=== PATIENT | male | born 1945 | race Caucasian/White ===

== ENCOUNTER 2017-01-31 20:26 | Inpatient (IN) | payer MEDICARE, BC ==
[2017-01-31] MEDS ORDERED: methylPREDNISolone 125 MG* 2 ML VIAL IV ONE (20:40)
[2017-01-31] MEDS ORDERED: Furosemide IV* 10 MG/ML VIAL (40 MG) IV ONE (20:40)
[2017-01-31] MEDS ORDERED: Albuterol/Ipratropium NEB.SOL* Albuterol 2.5 MG/Ipratropium 0.5 MG 3 ML INH ONE ×2 (20:40→21:32)
[2017-01-31] MEDS ORDERED: Albuterol/Ipratropium NEB.SOL* Albuterol 2.5 MG/Ipratropium 0.5 MG 3 ML ONE (20:41)
[2017-01-31 20:58] LABS: Hematocrit 30 % (42-52); Hemoglobin 9.7 g/dl (14.0-18.0); Mean Corpuscular HGB Conc 32 g/dl (31-36); Mean Corpuscular Hemoglobin 27 pg (27-31); Mean Corpuscular Volume 85 fL (80-94); Mean Platelet Volume 9 um3 (7.4-10.4); Red Blood Count 3.55 10^6/ul (4.0-5.4); Red Cell Distribution Width 16 % (10.5-15); White Blood Count 12.1 10^3/ul (3.5-10.8)
--- NOTE | 2017-01-31 20:59 | RAD ---
INDICATION: Shortness of breath. COMPARISON: There are no prior studies available for comparison. TECHNIQUE: A portable view of the chest was obtained. FINDINGS: The heart appears mildly enlarged. There are small infiltrates which project over both upper lobes and at both lung bases. No pleural effusion is seen. IMPRESSION: BILATERAL INFILTRATES.
[2017-01-31 21:01] LABS: Add Diff/Slide Review? Slide Review Added; Comments Flag Yes
[2017-01-31] MEDS ORDERED: cefTRIAXone(*) 1 GM in NS 0.9% 50 ML* 50 ML IVPB ONE (21:05)
[2017-01-31] MEDS ORDERED: Azithromycin IV(*) 500 MG in NS 0.9% 250 ML* 250 ML IVPB ONE (21:05)
[2017-01-31 21:13] LABS: Albumin 3.6 g/dL (3.2-5.2); Calcium 9.5 mg/dL (8.6-10.3); EGFR African American 59.3 (>60); EGFR Non-African American 46.1 (>60); Globulin 3.5 g/dL (2-4); Potassium 4.5 mmol/L (3.5-5.0); Total Bilirubin 0.3 mg/dL (0.2-1.0); Total Protein 7.1 g/dL (6.4-8.9)
[2017-01-31 21:16] LABS: Troponin I 0.02 ng/mL (<0.04)
--- NOTE | 2017-01-31 21:19 | ED ---
Lety Mirza Edward, scribed for Akil Solano MD on 01/31/17 at 2046 . Shortness of Breath - HPI Summary HPI Summary: LEVEL 5 CAVEAT DUE TO PATIENT BEING UNRESPONSIVE. INFORMATION PROVIDED BY EMS AND PATIENT'S . 71 y/o male BIBA c/o dyspnea for 2-3 days. Associated sx: hallucinations, per . EMS notes high blood sugar, HTN, low O2 sat. - History of Current Complaint Chief Complaint: EDShortnessOfBreath Time Seen by Provider: 01/31/17 20:37 Hx Obtained From: Family/Food And Beverage Service Manager - Nurse, EMS Onset/Duration: Lasting Days - 2-3 days - Allergy/Home Medications Allergies/Adverse Reactions: Allergies Allergy/AdvReac Type Severity Reaction Status Date / Time antihistamines AdvReac Intermediate Urinary Uncoded 01/31/17 23:10 Retention Home Medications: Home Medications Amlodipine Besylate 2.5 mg PO DAILY 01/31/17 [History Confirmed 01/31/17] Ascorbic Acid TAB* [Vitamin C TAB*] 1 tab PO DAILY 01/31/17 [History Confirmed 01/31/17] Coq-10 200 mg PO DAILY 01/31/17 [History Confirmed 01/31/17] Finasteride TAB* [Proscar TAB*] 5 mg PO DAILY 01/31/17 [History Confirmed ] Furosemide TAB* [Lasix TAB*] 80 mg PO DAILY 01/31/17 [History Confirmed 01/31/17 ] Glucosamine Hydrochloride [Glucosamine] 2 tab PO DAILY 01/31/17 [History Confirmed 01/31/17] Lisinopril TAB* [Prinivil TAB 10 MG*] 20 mg PO DAILY 01/31/17 [History Confirmed 01/31/17] Lysine 500 mg PO DAILY 01/31/17 [History Confirmed 01/31/17] Metformin HCl [Fortamet] 500 mg PO BID 01/31/17 [History Confirmed 01/31/17] Metoprolol Succinate XL TAB* [Toprol XL TAB*] 50 mg PO ONCE 01/31/17 [History Confirmed 01/31/17] Multiple Vitamins W/ Minerals [Multivitamin Adult] 1 tab PO DAILY 01/31/17 [ History Confirmed 01/31/17] Nabumetone TAB* [Relafen TAB*] 750 mg PO BID 01/31/17 [History Confirmed ] [place] 3 Fatty Acids-[place] 6 FA [[place] 3-6-9 Complex] 1,200 mg PO DAILY 01/31/17 [History Confirmed 01/31/17] Pregabalin CAP(*) [Lyrica CAP(*)] 600 mg PO BID 01/31/17 [History Confirmed ] Tamsulosin CAP* [Flomax CAP*] 0.4 mg PO DAILY 01/31/17 [History Confirmed ] Vitamin B Complex CAP* [B Complex CAP*] 1 tab PO DAILY 01/31/17 [History Confirmed 01/31/17] Vitamin E CAP* 400 units PO DAILY 01/31/17 [History Confirmed 01/31/17] Review of Systems - ROS Summary Review of Systems Summary: LEVEL 5 CAVEAT DUE TO PATIENT BEING UNRESPONSIVE Respiratory: Other - Dyspnea for 2-3 days Neurological: Other - Hallucinations, per All Other Systems Reviewed And Are Negative: No Physical Exam Triage Information Reviewed: Yes Vital Signs On Initial Exam: Initial Vitals Temp Pulse Resp BP Pulse Ox 98.4 F 72 22 174/69 92 01/31/17 20:35 01/31/17 20:35 01/31/17 20:35 01/31/17 20:35 01/31/17 20:35 Vital Signs Reviewed: Yes Completion Of Physical Exam Limited Due To: Extremis Appearance: Positive: No Pain Distress - marked resp distress, Ill-Appearing, Obese Skin: Positive: Warm Head/Face: Positive: Normal Head/Face Inspection Eyes: Positive: NELA ENT: Positive: Hearing grossly normal Neck: Positive: Supple Respiratory/Lung Sounds: Positive: Decreased Breath Sounds, Rales, Wheezes - diffuse bilat Cardiovascular: Positive: Tachycardia Abdomen Description: Positive: Nontender, Soft, Other: - obese Bowel Sounds: Positive: Present Musculoskeletal: Positive: Edema Left, Edema Right - 4+ bilat pitting with stasis dermatitis Neurological: Positive: Other - responds to noxious stimuli Psychiatric: Positive: Depressed Diagnostics - Vital Signs Vital Signs Temp Pulse Resp BP Pulse Ox 01/31/17 21:14 22 01/31/17 20:59 98.4 F 56 18 145/58 94 01/31/17 20:47 78 94 01/31/17 20:45 78 93 01/31/17 20:35 98.4 F 72 22 174/69 92 - Laboratory Lab Results: Lab Results 01/31/17 01/31/17 01/31/17 Range/Units 20:46 20:46 20:46 WBC 12.1 H (3.5-10.8) 10^3/ul RBC 3.55 L (4.0-5.4) 10^6/ul Hgb 9.7 L (14.0-18.0) g/dl Hct 30 L (42-52) % MCV 85 (80-94) fL MCH 27 (27-31) pg MCHC 32 (31-36) g/dl RDW 16 H (10.5-15) % Plt Count 195 (150-450) 10^3/ul MPV 9 (7.4-10.4) um3 Neut % (Auto) 78.7 (38-83) % Lymph % (Auto) 7.8 L (25-47) % [place] % (Auto) 10.8 H (1-9) % Eos % (Auto) 2.3 (0-6) % Baso % (Auto) 0.4 (0-2) % Absolute Neuts (auto) 9.5 H (1.5-7.7) 10^3/ul Absolute Lymphs (auto) 0.9 L (1.0-4.8) 10^3/ul Absolute Monos (auto) 1.3 H (0-0.8) 10^3/ul Absolute Eos (auto) 0.3 (0-0.6) 10^3/ul Absolute Basos (auto) 0 (0-0.2) 10^3/ul Absolute Nucleated RBC 0.01 10^3/ul Nucleated RBC % 0.1 D-Dimer, Quantitative (Less Than 230) ng/mL Sodium 139 (133-145) mmol/L Potassium 4.5 (3.5-5.0) mmol/L Chloride 100 L (101-111) mmol/L Carbon Dioxide 38 H (22-32) mmol/L Anion Gap 1 L (2-11) mmol/L BUN 33 H (6-24) mg/dL Creatinine 1.50 H (0.67-1.17) mg/dL Est GFR ( Amer) 59.3 (>60) Est GFR (Non-Af Amer) 46.1 (>60) BUN/Creatinine Ratio 22.0 H (8-20) Glucose 275 H (70-100) mg/dL Lactic Acid 1.0 (0.5-2.0) mmol/L Calcium 9.5 (8.6-10.3) mg/dL Total Bilirubin 0.30 (0.2-1.0) mg/dL AST 19 (13-39) U/L ALT 18 (7-52) U/L Alkaline Phosphatase 82 (34-104) U/L Total Creatine Kinase 147 (10-223) U/L Troponin I 0.02 (<0.04) ng/mL B-Natriuretic Peptide ( - 100) pg/mL Total Protein 7.1 (6.4-8.9) g/dL Albumin 3.6 (3.2-5.2) g/dL Globulin 3.5 (2-4) g/dL Albumin/Globulin Ratio 1.0 (1-3) 01/31/17 01/31/17 Range/Units 20:46 20:46 WBC (3.5-10.8) 10^3/ul RBC (4.0-5.4) 10^6/ul Hgb (14.0-18.0) g/dl Hct (42-52) % MCV (80-94) fL MCH (27-31) pg MCHC (31-36) g/dl RDW (10.5-15) % Plt Count (150-450) 10^3/ul MPV (7.4-10.4) um3 Neut % (Auto) (38-83) % Lymph % (Auto) (25-47) % [place] % (Auto) (1-9) % Eos % (Auto) (0-6) % Baso % (Auto) (0-2) % Absolute Neuts (auto) (1.5-7.7) 10^3/ul Absolute Lymphs (auto) (1.0-4.8) 10^3/ul Absolute Monos (auto) (0-0.8) 10^3/ul Absolute Eos (auto) (0-0.6) 10^3/ul Absolute Basos (auto) (0-0.2) 10^3/ul Absolute Nucleated RBC 10^3/ul Nucleated RBC % D-Dimer, Quantitative 368 H (Less Than 230) ng/mL Sodium (133-145) mmol/L Potassium (3.5-5.0) mmol/L Chloride (101-111) mmol/L Carbon Dioxide (22-32) mmol/L Anion Gap (2-11) mmol/L BUN (6-24) mg/dL Creatinine (0.67-1.17) mg/dL Est GFR ( Amer) (>60) Est GFR (Non-Af Amer) (>60) BUN/Creatinine Ratio (8-20) Glucose (70-100) mg/dL Lactic Acid (0.5-2.0) mmol/L Calcium (8.6-10.3) mg/dL Total Bilirubin (0.2-1.0) mg/dL AST (13-39) U/L ALT (7-52) U/L Alkaline Phosphatase (34-104) U/L Total Creatine Kinase (10-223) U/L Troponin I (<0.04) ng/mL B-Natriuretic Peptide 146 H ( - 100) pg/mL Total Protein (6.4-8.9) g/dL Albumin (3.2-5.2) g/dL Globulin (2-4) g/dL Albumin/Globulin Ratio (1-3) Result Diagrams: 01/31/17 20:46 01/31/17 20:46 Lab Statement: Any lab studies that have been ordered have been reviewed, and results considered in the medical decision making process. - Radiology CHEST XRAY Xray Interpretation: Positive (See Comments) - BILATERAL INFILTRATES Radiology Interpretation Completed By: Radiologist - EKG 1 EKG Interpretation: 20:36 - Sinus Rhythm, occasional PVC Re-Evaluation - Re-Evaluation First Eval Change: Improved - pt minimally improved with tx case d/w hospitalist Course/Dx - Course Assessment/Plan: Patient is a Level 5 caveat as he is unresponsive. 71 y/o male BIBA c/o dyspnea for 2-3 days. Associated sx: hallucinations, per . EMS notes high blood sugar, HTN, low O2 sat. CXR reveals Bilateral Infiltrates. We discussed patient care with Dr. Reji Shaw and he recommended admit to [facility] [place]. Pt is aggreable with this plan. - Diagnoses Provider Diagnoses: Respiratory failure - Physician Notifications Discussed Care of Patient With: Reji Shaw Time Discussed With Above Provider: 21:15 Instructed by Provider To: Admit As Inpatient - Critical Care Time Critical Care Time: 30-74 min Discharge - Discharge Plan Condition: Critical Disposition: ADMITTED TO [facility] The documentation as recorded by the Lety sherman Edward accurately reflects the service I personally performed and the decisions made by me, Akil Solano MD.
--- NOTE | 2017-01-31 21:20 | HP ---
H&P (Free Text) History and Physical: PCP: Shannan Samayoa MD Date/Time of Evaluation: 01/31/20172114 CC: SOB HPI: Mr Ortiz is a 71YO super morbidly obese male with complex HX outlined below who is currently lethargic and unable to participate in this history which is therefore obtained from his and daughter who are present. At baseline, Mr Ortiz leaves the home only for doctor's appointments and only ambulates around the home from living room to bedroom/bathroom which requires a walker and intra-walk rests. He developed a cough and chest congestion 2 days ago which progressed to include SOB last evening. Today he was watching the [employer] play and began hallucinating, seeing deer and alligators on the field and then leaning over to last picker the "bones" on his living room floor which prompted his to arrange this evaluation. There has been no complaint of chest pain, F/C, N/V, sweats, palpitations, change in bowel/bladder, or other issues. PMedHx CAD/IA congestive heart failure DM2 vs ? pre-DM2 obesity-hypoventilation syndrome, 2L NC continuous HTN VAMSI intolerant of CPAP peripheral neuropathy x4 chronic BLE edema super morbid obesity Ambulatory Orders Amlodipine Besylate 2.5 mg PO DAILY 01/31/17 Ascorbic Acid TAB* [Vitamin C TAB*] 1 tab PO DAILY 01/31/17 Coq-10 200 mg PO DAILY 01/31/17 Finasteride TAB* [Proscar TAB*] 5 mg PO DAILY 01/31/17 Furosemide TAB* [Lasix TAB*] 80 mg PO DAILY 01/31/17 Glucosamine Hydrochloride [Glucosamine] 2 tab PO DAILY 01/31/17 Lisinopril TAB* [Prinivil TAB 10 MG*] 20 mg PO DAILY 01/31/17 Lysine 500 mg PO DAILY 01/31/17 Metformin HCl [Fortamet] 500 mg PO BID 01/31/17 Metoprolol Succinate XL TAB* [Toprol XL TAB*] 50 mg PO ONCE 01/31/17 Multiple Vitamins W/ Minerals [Multivitamin Adult] 1 tab PO DAILY 01/31/17 Nabumetone TAB* [Relafen TAB*] 750 mg PO BID 01/31/17 [place] 3 Fatty Acids-[place] 6 FA [[place] 3-6-9 Complex] 1,200 mg PO DAILY 01/31/17 Pregabalin CAP(*) [Lyrica CAP(*)] 600 mg PO BID 01/31/17 Tamsulosin CAP* [Flomax CAP*] 0.4 mg PO DAILY 01/31/17 Vitamin B Complex CAP* [B Complex CAP*] 1 tab PO DAILY 01/31/17 Vitamin E CAP* 400 units PO DAILY 01/31/17 Allergies antihistamines Adverse Reaction (Intermediate, Uncoded 01/31/17 23:10) Urinary Retention PSurgHx back surgery 2000 TUNA 2000 L rotator cuff repair 2009 SocHx: former smoker w/ <20PYHX, no alcohol or recreational drugs; lives with his , minimal ambulation requires walker, only leaves the house to go to doctor appointments; 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 ROS: as above, otherwise reviewed and all were negative Constitutional: NAD, normally developed, super-morbidly obese white male vitals: Vital Signs Temp 36.9 C 01/31/17 20:59 Pulse 56 01/31/17 20:59 Resp 22 01/31/17 21:14 BP 145/58 01/31/17 20:59 Pulse Ox 94 01/31/17 20:59 Intake & Output 01/30/17 01/31/17 01/31/17 23:59 11:59 23:59 Weight 190.509 kg HEENM: atraumatic; sclera/conjunctiva: non-icteric/clear; hearing: unable to assess; oropharynx: clear, mucosa tacky, BiPap in place Neck: soft tissue: no nuchal rigidity; thyroid: normal Pulmonary: diminished B with R>L coarseness, poor aeration, no accessory muscle use CV: RR/RR, normal S1S2, no carotid bruit, no jugular venous distention, 2+ B DP/ PT, 3+ chronic appearing BLE edema Abdominal: soft, non-distended, non-tender, no rebound/guarding/rigidity, normoactive bowel sounds, no hepatosplenomegaly or masses, no costovertebral angle tenderness Musculoskeletal: general: grossly intact; gait: non-ambulatory currently 2nd lethargy Integumental: BLE with chronic venous stasis & chronic cellulitic changes Psychiatric orientation: lethargic, disoriented affect: somnolent mood: acquiescent eye contact: absent content: minimal, unreliable responses: slowed, if forthcoming insight: absent Testing: Lab Results 01/31/17 01/31/17 01/31/17 Range/Units 20:46 20:46 20:46 WBC 12.1 H (3.5-10.8) 10^3/ul RBC 3.55 L (4.0-5.4) 10^6/ul Hgb 9.7 L (14.0-18.0) g/dl Hct 30 L (42-52) % MCV 85 (80-94) fL MCH 27 (27-31) pg MCHC 32 (31-36) g/dl RDW 16 H (10.5-15) % Plt Count 195 (150-450) 10^3/ul MPV 9 (7.4-10.4) um3 Neut % (Auto) 78.7 (38-83) % Lymph % (Auto) 7.8 L (25-47) % [place] % (Auto) 10.8 H (1-9) % Eos % (Auto) 2.3 (0-6) % Baso % (Auto) 0.4 (0-2) % Absolute Neuts (auto) 9.5 H (1.5-7.7) 10^3/ul Absolute Lymphs (auto) 0.9 L (1.0-4.8) 10^3/ul Absolute Monos (auto) 1.3 H (0-0.8) 10^3/ul Absolute Eos (auto) 0.3 (0-0.6) 10^3/ul Absolute Basos (auto) 0 (0-0.2) 10^3/ul Absolute Nucleated RBC 0.01 10^3/ul Nucleated RBC % 0.1 D-Dimer, Quantitative (Less Than 230) ng/mL Patient Temperature ABG pH (7.35-7.45) ABG pCO2 (35-45) mmHg ABG pO2 (80-100) mmHg ABG HCO3 (19-31) mmol/L ABG O2 Saturation (95-98) % ABG Base Excess (-2.0-2.0) Respiration Rate O2 Delivery Device Ventilator Type Vent Mode FiO2 Inspiratory Time PEEP Pressure Support Pressure Control EPAP IPAP BiPAP Sodium 139 (133-145) mmol/L Potassium 4.5 (3.5-5.0) mmol/L Chloride 100 L (101-111) mmol/L Carbon Dioxide 38 H (22-32) mmol/L Anion Gap 1 L (2-11) mmol/L BUN 33 H (6-24) mg/dL Creatinine 1.50 H (0.67-1.17) mg/dL Est GFR ( Amer) 59.3 (>60) Est GFR (Non-Af Amer) 46.1 (>60) BUN/Creatinine Ratio 22.0 H (8-20) Glucose 275 H (70-100) mg/dL Lactic Acid 1.0 (0.5-2.0) mmol/L Calcium 9.5 (8.6-10.3) mg/dL Total Bilirubin 0.30 (0.2-1.0) mg/dL AST 19 (13-39) U/L ALT 18 (7-52) U/L Alkaline Phosphatase 82 (34-104) U/L Total Creatine Kinase 147 (10-223) U/L Troponin I 0.02 (<0.04) ng/mL B-Natriuretic Peptide ( - 100) pg/mL Total Protein 7.1 (6.4-8.9) g/dL Albumin 3.6 (3.2-5.2) g/dL Globulin 3.5 (2-4) g/dL Albumin/Globulin Ratio 1.0 (1-3) 01/31/17 01/31/17 01/31/17 Range/Units 20:46 20:46 21:40 WBC (3.5-10.8) 10^3/ul RBC (4.0-5.4) 10^6/ul Hgb (14.0-18.0) g/dl Hct (42-52) % MCV (80-94) fL MCH (27-31) pg MCHC (31-36) g/dl RDW (10.5-15) % Plt Count (150-450) 10^3/ul MPV (7.4-10.4) um3 Neut % (Auto) (38-83) % Lymph % (Auto) (25-47) % [place] % (Auto) (1-9) % Eos % (Auto) (0-6) % Baso % (Auto) (0-2) % Absolute Neuts (auto) (1.5-7.7) 10^3/ul Absolute Lymphs (auto) (1.0-4.8) 10^3/ul Absolute Monos (auto) (0-0.8) 10^3/ul Absolute Eos (auto) (0-0.6) 10^3/ul Absolute Basos (auto) (0-0.2) 10^3/ul Absolute Nucleated RBC 10^3/ul Nucleated RBC % D-Dimer, Quantitative 368 H (Less Than 230) ng/mL Patient Temperature Not Reportable ABG pH 7.26 L (7.35-7.45) ABG pCO2 95 H* (35-45) mmHg ABG pO2 67 L (80-100) mmHg ABG HCO3 35.0 H (19-31) mmol/L ABG O2 Saturation 94.2 L (95-98) % ABG Base Excess 13.0 H (-2.0-2.0) Respiration Rate Not Reportable O2 Delivery Device v60 Ventilator Type Not Reportable Vent Mode St FiO2 70 Inspiratory Time Not Reportable PEEP Not Reportable Pressure Support Not Reportable Pressure Control Not Reportable EPAP 6 IPAP 16 BiPAP Not Reportable Sodium (133-145) mmol/L Potassium (3.5-5.0) mmol/L Chloride (101-111) mmol/L Carbon Dioxide (22-32) mmol/L Anion Gap (2-11) mmol/L BUN (6-24) mg/dL Creatinine (0.67-1.17) mg/dL Est GFR ( Amer) (>60) Est GFR (Non-Af Amer) (>60) BUN/Creatinine Ratio (8-20) Glucose (70-100) mg/dL Lactic Acid (0.5-2.0) mmol/L Calcium (8.6-10.3) mg/dL Total Bilirubin (0.2-1.0) mg/dL AST (13-39) U/L ALT (7-52) U/L Alkaline Phosphatase (34-104) U/L Total Creatine Kinase (10-223) U/L Troponin I (<0.04) ng/mL B-Natriuretic Peptide 146 H ( - 100) pg/mL Total Protein (6.4-8.9) g/dL Albumin (3.2-5.2) g/dL Globulin (2-4) g/dL Albumin/Globulin Ratio (1-3) ECG, personally reviewed: 1st degree AV block w/ PVCs rate 64, no ischemia, poor R-wave progression, old inferior IA CXR, personally reviewed: IMPRESSION: BILATERAL INFILTRATES. Impression: 71M HX super morbid obesity, CHF, CAD/IA, ? 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 who is on BiPap as rescue therapy despite decreased level of consciousness as he is a DNI DIAGNOSIS & PLAN Primary acute on chronic hypoxic, hypercarbic respiratory failure : HX obesity-hypoventilation syndrome requiring 2L NC continuously : ICU monitoring : BiPap : requires one-to-one monitoring due to lethargy on BiPap as he is a DNI : supplemental oxygen with target saO2 of 88-95% due to hyperCarbia : supportive care sepsis 2nd B community acquired pneumonia : qSOFA 2 for AMS & elevated RR : hold IVFs 2nd concurrent CHF : IV azithromycin & ceftriaxone : blood & sputum CXs : BiPap as rescue as he is a DNI : check urine Legionella & S pneumo antigens : supportive care acute on chronic systolic/diastolic HF : furosemide diuresis : strict I&Os : daily weights : guerra to gravity for critically ill patient to prevent skin breakdown & for accurate monitoring of renal function : check ECHO in AM generalized deconditioning : social media intern consult for assisted placement : & daughter advised given his baseline generalized deconditioning, he will require inpatient rehab BLE chronic venous stasis with chronic BLE cellulitis : ABX as above elevated d-dimer : certainly Mr Ortiz is at risk for PE, but is currently too ill to send for CTA : heparin GTT until able to safely evaluate : trend H&H given current anemia (? baseline) : stool for occult blood other : request PCP records for health summary & baseline labwork Secondary CAD/IA : review meds once reconciled DM2 vs ? pre-DM2 : check A1c & consider further requirements HTN : review meds once reconciled VAMSI : intolerant of CPAP peripheral neuropathy x4 : review meds once reconciled chronic BLE edema : review meds once reconciled super morbid obesity : complicated by obesity-hypoventilation syndrome Admission Rational: inpatient for ICU management of critical illness in a patient with near 100% mortality in the outpatient setting DVTp: heparin SQ & SCDs Code Status: cardiac DNI HCP:
[2017-01-31 21:46] LABS: EPAP 6; FIO2 70; IPAP 16
[2017-01-31 21:51] LABS: PCO2 Arterial 95 mmHg (35-45)
[2017-01-31] MEDS ORDERED: Albuterol 2.5 MG/3 ML NEB.SOL* (0.083%) INH PRN (22:54)
[2017-01-31] MEDS ORDERED: Ondansetron INJ* 2 MG/ML VIAL IV PRN (22:54)
[2017-01-31] MEDS ORDERED: Heparin VIAL(*) 5000 UNITS/ML VIAL (FIVE THOUSAND) IV SCH (23:00)
[2017-02-01] MEDS: Heparin DRIP 25,000 UNITS(*) 25,000 UNITS/500 ML BAG IV SCH ×2 (00:01→13:24)
[2017-02-01 04:07] LABS: Magnesium 2.2 mg/dL (1.9-2.7)
[2017-02-01 06:39] LABS: Hematocrit 28 % (42-52); Hemoglobin 8.8 g/dl (14.0-18.0); Mean Corpuscular HGB Conc 32 g/dl (31-36); Mean Corpuscular Hemoglobin 27 pg (27-31); Mean Corpuscular Volume 87 fL (80-94); Mean Platelet Volume 10 um3 (7.4-10.4); Red Blood Count 3.23 10^6/ul (4.0-5.4); Red Cell Distribution Width 16 % (10.5-15); White Blood Count 9.5 10^3/ul (3.5-10.8)
[2017-02-01 06:54] LABS: BUN/Creatinine Ratio 23.1 (8-20); EGFR African American 60.7 (>60); EGFR Non-African American 47.2 (>60)
--- NOTE | 2017-02-01 07:59 | PN ---
Subjective Date of Service: 02/01/17 Interval History: Patient unresponsive. Objective Active Medications: Albuterol (Ventolin 2.5 Mg/3 Ml Neb.Milly*) 2.5 mg INH Q2H PRN PRN Reason: SOB/WHEEZING Device (Tiotropium Inhaler Device*) 1 each INH 0900 ONE Stop: 02/01/17 09:01 Furosemide (Lasix Iv*) 40 mg IV 0800,1200 PAN Heparin Sodium/Dextrose (Heparin Drip 25,000 Units(*)) 25,000 units in 500 mls @ 0 mls/hr IV .NO BOLUSES PROTOCOL PAN; Per Protocol PRN Reason: Protocol Last Admin: 02/01/17 00:01 Dose: 34 mls/hr Ceftriaxone Sodium 1,000 mg/ (Sodium Chloride) 50 mls @ 200 mls/hr IVPB Q24H PAN Azithromycin 500 mg/ Sodium (Chloride) 250 mls @ 250 mls/hr IVPB Q24H PAN Methylprednisolone Sodium Succinate (Solu-Medrol 40 Mg) 40 mg IV Q8H PAN Mometasone Furoate/Formoterol Fumar (Dulera 200/5 Mdi*) 2 puff INH BID PAN Ondansetron HCl (Zofran Inj*) 4 mg IV Q6H PRN PRN Reason: NAUSEA Tiotropium [place] (Spiriva Cap.Inh*) 1 cap INH DAILY [facility] Vital Signs 01/31/17 01/31/17 01/31/17 21:30 22:00 22:30 Temperature Pulse Rate 63 57 59 Respiratory 20 19 17 Rate Blood Pressure 143/59 148/59 154/79 (mmHg) O2 Sat by Pulse 87 93 92 Oximetry 01/31/17 01/31/17 01/31/17 22:42 22:43 23:00 Temperature 97.5 F Pulse Rate 62 58 62 Respiratory 20 18 18 Rate Blood Pressure 154/79 (mmHg) O2 Sat by Pulse 91 91 Oximetry 01/31/17 01/31/17 01/31/17 23:01 23:05 23:09 Temperature 99.9 F Pulse Rate 66 Respiratory 20 20 Rate Blood Pressure 124/63 124/63 (mmHg) O2 Sat by Pulse 95 Oximetry 01/31/17 01/31/17 01/31/17 23:15 23:30 23:45 Temperature Pulse Rate 50 46 49 Respiratory 15 13 14 Rate Blood Pressure 117/57 104/52 104/49 (mmHg) O2 Sat by Pulse 95 96 93 Oximetry 02/01/17 02/01/17 02/01/17 00:00 00:01 00:15 Temperature Pulse Rate 46 46 46 Respiratory 14 14 14 Rate Blood Pressure 111/53 109/52 (mmHg) O2 Sat by Pulse 92 92 92 Oximetry 02/01/17 02/01/17 02/01/17 00:30 00:45 01:00 Temperature Pulse Rate 50 48 49 Respiratory 12 13 15 Rate Blood Pressure 108/54 108/56 112/54 (mmHg) O2 Sat by Pulse 92 93 93 Oximetry 02/01/17 02/01/17 02/01/17 01:15 01:16 01:30 Temperature Pulse Rate 47 48 47 Respiratory 13 14 14 Rate Blood Pressure 108/54 97/56 113/58 (mmHg) O2 Sat by Pulse 93 94 93 Oximetry 02/01/17 02/01/17 02/01/17 01:45 02:00 02:15 Temperature Pulse Rate 48 46 55 Respiratory 13 14 8 Rate Blood Pressure 113/57 115/58 115/55 (mmHg) O2 Sat by Pulse 93 95 95 Oximetry 02/01/17 02/01/17 02/01/17 02:30 02:45 03:00 Temperature Pulse Rate 48 47 46 Respiratory 9 10 12 Rate Blood Pressure 113/56 111/56 110/55 (mmHg) O2 Sat by Pulse 95 94 94 Oximetry 02/01/17 02/01/17 02/01/17 03:15 03:27 03:30 Temperature Pulse Rate 49 47 Respiratory 18 7 Rate Blood Pressure 124/93 122/62 (mmHg) O2 Sat by Pulse 95 94 96 Oximetry 02/01/17 02/01/17 02/01/17 03:45 04:00 04:15 Temperature Pulse Rate 46 49 56 Respiratory 13 9 12 Rate Blood Pressure 127/59 109/59 104/60 (mmHg) O2 Sat by Pulse 96 96 97 Oximetry 02/01/17 02/01/17 02/01/17 04:30 04:45 05:00 Temperature Pulse Rate 63 92 55 Respiratory 16 15 12 Rate Blood Pressure 137/65 124/67 117/73 (mmHg) O2 Sat by Pulse 98 98 100 Oximetry 02/01/17 02/01/17 02/01/17 05:15 05:30 05:45 Temperature Pulse Rate 45 44 44 Respiratory 13 15 13 Rate Blood Pressure 126/64 116/57 101/52 (mmHg) O2 Sat by Pulse 98 97 96 Oximetry 02/01/17 02/01/17 02/01/17 06:00 06:15 06:30 Temperature Pulse Rate 49 44 44 Respiratory 12 14 14 Rate Blood Pressure 107/59 103/50 (mmHg) O2 Sat by Pulse 97 95 96 Oximetry 02/01/17 02/01/17 06:45 07:00 Temperature Pulse Rate 44 46 Respiratory 13 14 Rate Blood Pressure 106/60 101/54 (mmHg) O2 Sat by Pulse 97 96 Oximetry Oxygen Devices in Use Now: CPAP/BiPAP Appearance: Partly up in bed, eyes closed, not responsive to voice or light touch. Eyes: No Scleral Icterus Ears/Nose/Mouth/Throat: Clear Oropharnyx, Mucous Membranes Moist Neck: NL Appearance and Movements; NL JVP, No Thyroid Enlargement, Masses Respiratory: Symmetrical Chest Expansion and Respiratory Effort, Clear to Auscultation, Clear to Percussion Cardiovascular: NL Sounds; No Murmurs; No JVD, RRR, No Edema, - Extremities: No Clubbing, Cyanosis, - - 2+ edema BL Skin: No Nodules or Sclerosis, - - marked hyperpigmentation both lower legs with eyrthema below knees Neurological: - - Eyes closed, not responsive to voice or light touch. No tremor Result Diagrams: 02/01/17 06:13 02/02/17 05:55 Additional Lab and Data: Lab Results 01/31/17 01/31/17 01/31/17 Range/Units 20:46 20:46 20:46 WBC 12.1 H (3.5-10.8) 10^3/ul RBC 3.55 L (4.0-5.4) 10^6/ul Hgb 9.7 L (14.0-18.0) g/dl Hct 30 L (42-52) % MCV 85 (80-94) fL MCH 27 (27-31) pg MCHC 32 (31-36) g/dl RDW 16 H (10.5-15) % Plt Count 195 (150-450) 10^3/ul MPV 9 (7.4-10.4) um3 Neut % (Auto) 78.7 (38-83) % Lymph % (Auto) 7.8 L (25-47) % [place] % (Auto) 10.8 H (1-9) % Eos % (Auto) 2.3 (0-6) % Baso % (Auto) 0.4 (0-2) % Absolute Neuts (auto) 9.5 H (1.5-7.7) 10^3/ul Absolute Lymphs (auto) 0.9 L (1.0-4.8) 10^3/ul Absolute Monos (auto) 1.3 H (0-0.8) 10^3/ul Absolute Eos (auto) 0.3 (0-0.6) 10^3/ul Absolute Basos (auto) 0 (0-0.2) 10^3/ul Absolute Nucleated RBC 0.01 10^3/ul Nucleated RBC % 0.1 D-Dimer, Quantitative (Less Than 230) ng/mL Sodium 139 (133-145) mmol/L Potassium 4.5 (3.5-5.0) mmol/L Chloride 100 L (101-111) mmol/L Carbon Dioxide 38 H (22-32) mmol/L Anion Gap 1 L (2-11) mmol/L BUN 33 H (6-24) mg/dL Creatinine 1.50 H (0.67-1.17) mg/dL Est GFR ( Amer) 59.3 (>60) Est GFR (Non-Af Amer) 46.1 (>60) BUN/Creatinine Ratio 22.0 H (8-20) Glucose 275 H (70-100) mg/dL Lactic Acid 1.0 (0.5-2.0) mmol/L Calcium 9.5 (8.6-10.3) mg/dL Total Bilirubin 0.30 (0.2-1.0) mg/dL AST 19 (13-39) U/L ALT 18 (7-52) U/L Alkaline Phosphatase 82 (34-104) U/L Total Creatine Kinase 147 (10-223) U/L Troponin I 0.02 (<0.04) ng/mL B-Natriuretic Peptide ( - 100) pg/mL Total Protein 7.1 (6.4-8.9) g/dL Albumin 3.6 (3.2-5.2) g/dL Globulin 3.5 (2-4) g/dL Albumin/Globulin Ratio 1.0 (1-3) 01/31/17 01/31/17 Range/Units 20:46 20:46 WBC (3.5-10.8) 10^3/ul RBC (4.0-5.4) 10^6/ul Hgb (14.0-18.0) g/dl Hct (42-52) % MCV (80-94) fL MCH (27-31) pg MCHC (31-36) g/dl RDW (10.5-15) % Plt Count (150-450) 10^3/ul MPV (7.4-10.4) um3 Neut % (Auto) (38-83) % Lymph % (Auto) (25-47) % [place] % (Auto) (1-9) % Eos % (Auto) (0-6) % Baso % (Auto) (0-2) % Absolute Neuts (auto) (1.5-7.7) 10^3/ul Absolute Lymphs (auto) (1.0-4.8) 10^3/ul Absolute Monos (auto) (0-0.8) 10^3/ul Absolute Eos (auto) (0-0.6) 10^3/ul Absolute Basos (auto) (0-0.2) 10^3/ul Absolute Nucleated RBC 10^3/ul Nucleated RBC % D-Dimer, Quantitative 368 H (Less Than 230) ng/mL Sodium (133-145) mmol/L Potassium (3.5-5.0) mmol/L Chloride (101-111) mmol/L Carbon Dioxide (22-32) mmol/L Anion Gap (2-11) mmol/L BUN (6-24) mg/dL Creatinine (0.67-1.17) mg/dL Est GFR ( Amer) (>60) Est GFR (Non-Af Amer) (>60) BUN/Creatinine Ratio (8-20) Glucose (70-100) mg/dL Lactic Acid (0.5-2.0) mmol/L Calcium (8.6-10.3) mg/dL Total Bilirubin (0.2-1.0) mg/dL AST (13-39) U/L ALT (7-52) U/L Alkaline Phosphatase (34-104) U/L Total Creatine Kinase (10-223) U/L Troponin I (<0.04) ng/mL B-Natriuretic Peptide 146 H ( - 100) pg/mL Total Protein (6.4-8.9) g/dL Albumin (3.2-5.2) g/dL Globulin (2-4) g/dL Albumin/Globulin Ratio (1-3) Assess/Plan/Problems-Billing Assessment: - Patient Problems (1) Respiratory failure Current Visit: Yes Status: Acute Code(s): J96.90 - RESPIRATORY FAILURE, UNSP , UNSP W HYPOXIA OR HYPERCAPNIA SNOMED Code(s): 774141258 Comment: Due to COPD, MO, pneumonia. Note DNR status. I spoke with his daughter at length about code status, prognosis. She wishes for CPR but no intubation. Continue BIPAP, tiortropium, antibiotics; taper steroids. Repeat ABG's 02/01. Daughter will bring in his CPAP machine. (2) CHF (congestive heart failure) Current Visit: Yes Status: Acute Code(s): I50.9 - HEART FAILURE, UNSPECIFIED SNOMED Code(s): 76985500 Comment: Continue IV furosemide, Villatoro. BMP, BNP 02/02. Echo pending. (3) Diabetes Current Visit: Yes Status: Acute Code(s): E11.9 - TYPE 2 DIABETES MELLITUS WITHOUT COMPLICATIONS SNOMED Code(s): 38238541 Comment: FS glucose q 6 hr with Lispro by SS. (4) Morbid obesity Current Visit: Yes Status: Acute Code(s): E66.01 - MORBID (SEVERE) OBESITY DUE TO EXCESS CALORIES SNOMED Code(s): 901007720 Comment: BMI 51.0.
[2017-02-01] MEDS ORDERED: Furosemide IV* 10 MG/ML VIAL (40 MG) IV SCH (08:00)
[2017-02-01] MEDS ORDERED: Dextrose 50% Syringe 50 ML* 25 GM/50 ML SYRINGE IV PUSH PRN (08:04)
[2017-02-01 08:37] LABS: EPAP 6; FIO2 75; IPAP 18; Resp Rate 14
[2017-02-01 08:45] LABS: PCO2 Arterial 87 mmHg (35-45)
[2017-02-01] MEDS ORDERED: Perflutren Lipid Microsphere* 3 ML VIAL ONE (08:53)
[2017-02-01] MEDS ORDERED: Spiriva Inhaler DEVICE* 1 EACH DEVICE INH ONE (09:00)
[2017-02-01] MEDS ORDERED: methylPREDNISolone SOD 40 MG* 1 ML VIAL IV SCH (09:00)
[2017-02-01] MEDS: methylPREDNISolone SOD 40 MG* 1 ML VIAL IV SCH ×2 (09:19→20:36)
[2017-02-01] MEDS ORDERED: Furosemide IV* 10 MG/ML VIAL (40 MG) IV ONE (09:51)
--- NOTE | 2017-02-01 11:14 | ECHO ---
Patient: MADDISON SHIRLEY [facility] Rec#: [id number] : 1945 Date: 02/01/2017 Age: 71y Height: 180.34 cm / 71.0 in Weight: 190.51 kg / 419.9 lbs Sex: M BSA: 2.89 Room#: ICU 13 Admit Date#: 01/31/2017 Type: Inpatient Referring: Reji Shaw MD Reading: Khanh Ledesma MD Stoner Hand[facility] Transthoracic Echocardiogram Indication: CHF, Respiratory abnormality BP: 101/54 HR: 58 Rhythm: Bradycardia Indications Respiratory Abnormality Findings History: CAD, [place], CHF, DM, HTN, VAMSI, edema, former smoker, morbid obesity Technical Comments: The study is technically limited due to poor acoustic windows. Completed 0940 Left Ventricle: The left ventricular chamber size is normal. Moderate concentric left ventricular hypertrophy is observed. The estimated ejection fraction is 50-55%. Abnormal left ventricular diastolic function is observed. The patient was unable to perform a Valsalva maneuver. Left Atrium: The left atrium is moderate to severely dilated. Right Ventricle: The right ventricle wall thickness is moderately increased. The right ventricle is mild to moderately dilated. The right ventricular global systolic function is normal. Right Atrium: The right atrium is mild to moderately dilated. Aortic Valve: The aortic valve leaflets are mildly thickened. There is no evidence of aortic regurgitation. There is no evidence of aortic stenosis. Mitral Valve: The mitral valve structure is not well visualized. The mitral valve leaflets are mildly thickened. There is no evidence of mitral stenosis. Tricuspid Valve: The tricuspid valve leaflets are normal. There is trace tricuspid regurgitation. Unable to estimate the right ventricular systolic pressure. Pulmonic Valve: There is no evidence of pulmonic valve thickening. There is a trace pulmonic regurgitation. Pericardium: There is no significant pericardial effusion. Aorta: There is mild dilatation of the ascending aorta.3.6 cm The aortic arch is not well visualized. There is no dilation of the aortic root. Pulmonary Artery: The main pulmonary artery is not well visualized. Venous: The inferior vena cava is dilated. There is no change in the dimension of the inferior vena cava with respiration consistent with markedly increased right atrial pressure. Contrast: Definity was used to optimize study. A total of 4 ml used Summary: There was not any prior study for comparison. Conclusions The study is technically limited due to poor acoustic windows. Poor valve evaluation due to poor images Moderate concentric left ventricular hypertrophy is observed. The estimated ejection fraction is 50-55%. Abnormal left ventricular diastolic function is observed. The right ventricle wall thickness is moderately increased. The right ventricle is mild to moderately dilated. The right ventricular global systolic function is normal. There is no evidence of aortic stenosis. The mitral valve structure is not well visualized. There is trace tricuspid regurgitation. Unable to estimate the right ventricular systolic pressure. There is no significant pericardial effusion. There is mild dilatation of the ascending aorta.3.6 cm Measurements Name Value Normal Range RVIDd (AP) 2D 3.8 cm (0.9 - 2.6) RAd ISD 4CH 5.9 cm (3.4 - 4.9) RA (A4C)W 4.8 cm (2.9 - 4.6) IVSd (2D) 1.5 cm (0.6 - 1) LVPWd (2D) 1.5 cm (0.6 - 1) LVIDd (2D) 5.4 cm (3.6 - 5.4) LVIDs (2D) 4 cm - LV FS (2D) 26 % (25 - 45) Aortic Annulus 2.6 cm (1.4 - 2.6) Ao root diameter (2D) 3.3 cm (2.1 - 3.5) Ascending Ao 3.6 cm (2.1 - 3.4) LA dimension (AP) 2D 5.2 cm (2.3 - 3.8) LAd ISD 4CH 7.3 cm (2.9 - 5.3) LA ISD 4CH W 5.6 cm (2.5 - 4.5) Name Value Normal Range MV E-wave Vmax 0.8 m/sec - MV deceleration time 265.5 msec - MV A-wave Vmax 0.9 m/sec - MV E:A ratio 0.9 ratio - LV septal e' Vmax 0.09 m/sec - LV lateral e' Vmax 0.08 m/sec - LV E:e' septal ratio 9 ratio - LV E:e' lateral ratio 10 ratio - Name Value Normal Range AV Vmax 1 m/sec - AV VTI 25 cm - AV peak gradient 4 mmHg - AV mean gradient 2.1 mmHg - LVOT Vmax 0.9 m/sec - LVOT VTI 23.5 cm - LVOT peak gradient 3.3 mmHg - LVOT mean gradient 1.7 mmHg - Name Value Normal Range RAP 15 mmHg - IVC diameter 3.5 cm - Name Value Normal Range PV Vmax 1.1 m/sec - PV peak gradient 5 mmHg -
[2017-02-01] MEDS ORDERED: Furosemide IV* 10 MG/ML 10 ML VIAL (100 MG) IV SCH (12:00)
[2017-02-01] MEDS: Insulin LISPRO* 1 UNITS UNIT SUBCUT SCH ×2 (12:51→17:51)
[2017-02-01] MEDS: Mometasone/Formoter 200/5 MDI INH SCH ×2 (13:35→22:00)
[2017-02-01] MEDS: Tiotropium CAP.INH* CAP.INH/18 MCG INH SCH (13:35)
[2017-02-01] MEDS: Furosemide IV* 10 MG/ML 10 ML VIAL (100 MG) IV SCH (16:57)
[2017-02-01] MEDS: cefTRIAXone VIAL(*) 1,000 MG in NS 0.9% 50 ML* 50 ML IVPB SCH (20:33)
[2017-02-01] MEDS: Nystatin TOP POWDER* 15 GM BTL TOPICAL SCH (20:36)
[2017-02-01] MEDS: Azithromycin IV(*) 500 MG in NS 0.9% 250 ML* 250 ML IVPB SCH (21:19)
[2017-02-02] MEDS: Insulin LISPRO* 1 UNITS UNIT SUBCUT SCH ×5 (00:15→20:54)
[2017-02-02] MEDS: Heparin DRIP 25,000 UNITS(*) 25,000 UNITS/500 ML BAG IV SCH (06:17)
[2017-02-02 06:46] LABS: BUN/Creatinine Ratio 26.5 (8-20); Calcium 8.8 mg/dL (8.6-10.3); EGFR African American 58.9 (>60); EGFR Non-African American 45.8 (>60); Potassium 4.4 mmol/L (3.5-5.0)
[2017-02-02] MEDS: Furosemide IV* 10 MG/ML 10 ML VIAL (100 MG) IV SCH ×2 (08:45→17:02)
[2017-02-02] MEDS: Enoxaparin(*) 40 MG/0.4 ML SYR SUBCUT SCH (08:45)
[2017-02-02] MEDS: Nystatin TOP POWDER* 15 GM BTL TOPICAL SCH ×3 (08:45→20:57)
[2017-02-02] MEDS: Pregabalin CAP(*) 100 MG PO SCH ×2 (08:45→20:54)
--- NOTE | 2017-02-02 08:48 | PN ---
Subjective Date of Service: 02/02/17 Interval History: Slept poorly with BIPAP on. No cough. He states his hands and feet are numb and he would have trouble using a urinal due to numbness and his obesity. He requested a non-rolling walker. Objective Active Medications: Albuterol (Ventolin 2.5 Mg/3 Ml Neb.Milly*) 2.5 mg INH Q2H PRN PRN Reason: SOB/WHEEZING Dextrose (D50w Syringe 50 Ml*) 12.5 gm IV PUSH .FOR FS < 60 - SS PRN PRN Reason: FS < 60 Enoxaparin Sodium (Lovenox(*)) 40 mg SUBCUT Q24H [facility] Furosemide (Lasix Iv*) 80 mg IV 0800,1700 [facility] Last Admin: 02/01/17 16:57 Dose: 80 mg Ceftriaxone Sodium 1,000 mg/ (Sodium Chloride) 50 mls @ 200 mls/hr IVPB Q24H [facility] Last Admin: 02/01/17 20:33 Dose: 200 mls/hr Azithromycin 500 mg/ Sodium (Chloride) 250 mls @ 250 mls/hr IVPB Q24H [facility] Last Admin: 02/01/17 21:19 Dose: 250 mls/hr Insulin Human Lispro (Humalog*) 0 units SUBCUT FS Q6 ICU PAN PRN Reason: Protocol Last Admin: 02/02/17 06:16 Dose: 2 unit Mometasone Furoate/Formoterol Fumar (Dulera 200/5 Mdi*) 2 puff INH BID [facility] Last Admin: 02/01/17 22:00 Dose: 2 puff Nystatin (Nystatin Top Powder*) 1 applic TOPICAL TID [facility] Last Admin: 02/01/17 20:36 Dose: 1 applic Ondansetron HCl (Zofran Inj*) 4 mg IV Q6H PRN PRN Reason: NAUSEA Pregabalin (Lyrica Cap(*)) 600 mg PO BID [facility] Tiotropium [place] (Spiriva Cap.Inh*) 1 cap INH DAILY [facility] Last Admin: 02/01/17 13:35 Dose: 1 cap Vital Signs 02/01/17 02/01/17 02/01/17 08:45 09:00 09:15 Temperature Pulse Rate 48 49 58 Respiratory 15 Rate Blood Pressure 98/46 101/42 108/47 (mmHg) O2 Sat by Pulse 100 95 94 Oximetry 06/26/17 06/26/17 06/26/17 09:30 10:00 10:59 Temperature Pulse Rate 47 45 Respiratory 13 13 18 Rate Blood Pressure 91/39 105/47 (mmHg) O2 Sat by Pulse 94 94 Oximetry 02/01/17 02/01/17 02/01/17 11:00 11:56 12:00 Temperature 97 F Pulse Rate 44 Respiratory 55 19 Rate Blood Pressure 100/51 111/75 104/44 (mmHg) O2 Sat by Pulse 93 Oximetry 02/01/17 02/01/17 02/01/17 12:30 13:00 13:01 Temperature Pulse Rate 108 120 Respiratory 14 21 Rate Blood Pressure 113/80 110/46 120/74 (mmHg) O2 Sat by Pulse 96 91 Oximetry 02/01/17 02/01/17 02/01/17 13:30 13:36 13:37 Temperature Pulse Rate 119 53 63 Respiratory 26 19 19 Rate Blood Pressure 115/79 (mmHg) O2 Sat by Pulse 89 91 91 Oximetry 02/01/17 02/01/17 02/01/17 14:00 14:30 15:00 Temperature Pulse Rate 118 112 110 Respiratory 24 22 19 Rate Blood Pressure 109/64 120/71 116/76 (mmHg) O2 Sat by Pulse 90 90 95 Oximetry 02/01/17 02/01/17 02/01/17 16:00 16:37 17:00 Temperature 99 F Pulse Rate 53 55 58 Respiratory 16 21 19 Rate Blood Pressure 96/38 99/45 (mmHg) O2 Sat by Pulse 91 90 90 Oximetry 02/01/17 02/01/17 02/01/17 18:00 19:00 20:00 Temperature 98.7 F Pulse Rate 57 53 Respiratory 18 17 17 Rate Blood Pressure 92/45 88/34 (mmHg) O2 Sat by Pulse 90 92 Oximetry 02/01/17 02/01/17 02/01/17 20:02 21:00 21:27 Temperature Pulse Rate 51 48 Respiratory 17 19 22 Rate Blood Pressure 84/35 101/44 (mmHg) O2 Sat by Pulse 93 93 Oximetry 02/01/17 02/01/17 02/01/17 22:00 22:20 23:00 Temperature Pulse Rate 47 55 47 Respiratory 19 16 20 Rate Blood Pressure 98/44 102/41 (mmHg) O2 Sat by Pulse 94 94 94 Oximetry 02/01/17 02/01/17 02/02/17 23:31 23:54 00:00 Temperature 97.2 F Pulse Rate 44 44 Respiratory 19 19 Rate Blood Pressure (mmHg) O2 Sat by Pulse 94 92 Oximetry 02/02/17 02/02/17 02/02/17 00:01 01:00 01:04 Temperature Pulse Rate 44 55 Respiratory 20 17 19 Rate Blood Pressure 89/45 117/54 (mmHg) O2 Sat by Pulse 94 90 Oximetry 02/02/17 02/02/17 02/02/17 02:00 03:00 04:00 Temperature 98.0 F Pulse Rate 42 43 45 Respiratory 18 18 16 Rate Blood Pressure 106/50 97/50 114/56 (mmHg) O2 Sat by Pulse 92 92 95 Oximetry 02/02/17 02/02/17 02/02/17 05:00 05:49 06:00 Temperature Pulse Rate 58 58 50 Respiratory 18 17 17 Rate Blood Pressure 121/57 124/72 127/64 (mmHg) O2 Sat by Pulse 96 94 95 Oximetry 02/02/17 07:55 Temperature 98.1 F Pulse Rate Respiratory Rate Blood Pressure (mmHg) O2 Sat by Pulse Oximetry Oxygen Devices in Use Now: Nasal Cannula Appearance: Alert, partly up in ICU bed. In good spirits. Looks comfortable. Neck: NL Appearance and Movements; NL JVP, No Thyroid Enlargement, Masses Respiratory: Symmetrical Chest Expansion and Respiratory Effort, Clear to Auscultation, Clear to Percussion Cardiovascular: NL Sounds; No Murmurs; No JVD, RRR, No Edema, - Extremities: No Clubbing, Cyanosis, - - 2+ edema BL Skin: No Nodules or Sclerosis, - - Both lower legs chronic changes of hyperpigmentation and erythema. Neurological: Alert and Oriented x 3, NL Sensation Result Diagrams: 02/01/17 06:13 02/02/17 05:55 Additional Lab and Data: Lab Results 01/31/17 01/31/17 01/31/17 Range/Units 20:46 20:46 20:46 WBC 12.1 H (3.5-10.8) 10^3/ul RBC 3.55 L (4.0-5.4) 10^6/ul Hgb 9.7 L (14.0-18.0) g/dl Hct 30 L (42-52) % MCV 85 (80-94) fL MCH 27 (27-31) pg MCHC 32 (31-36) g/dl RDW 16 H (10.5-15) % Plt Count 195 (150-450) 10^3/ul MPV 9 (7.4-10.4) um3 Neut % (Auto) 78.7 (38-83) % Lymph % (Auto) 7.8 L (25-47) % [place] % (Auto) 10.8 H (1-9) % Eos % (Auto) 2.3 (0-6) % Baso % (Auto) 0.4 (0-2) % Absolute Neuts (auto) 9.5 H (1.5-7.7) 10^3/ul Absolute Lymphs (auto) 0.9 L (1.0-4.8) 10^3/ul Absolute Monos (auto) 1.3 H (0-0.8) 10^3/ul Absolute Eos (auto) 0.3 (0-0.6) 10^3/ul Absolute Basos (auto) 0 (0-0.2) 10^3/ul Absolute Nucleated RBC 0.01 10^3/ul Nucleated RBC % 0.1 D-Dimer, Quantitative (Less Than 230) ng/mL Sodium 139 (133-145) mmol/L Potassium 4.5 (3.5-5.0) mmol/L Chloride 100 L (101-111) mmol/L Carbon Dioxide 38 H (22-32) mmol/L Anion Gap 1 L (2-11) mmol/L BUN 33 H (6-24) mg/dL Creatinine 1.50 H (0.67-1.17) mg/dL Est GFR ( Amer) 59.3 (>60) Est GFR (Non-Af Amer) 46.1 (>60) BUN/Creatinine Ratio 22.0 H (8-20) Glucose 275 H (70-100) mg/dL Lactic Acid 1.0 (0.5-2.0) mmol/L Calcium 9.5 (8.6-10.3) mg/dL Total Bilirubin 0.30 (0.2-1.0) mg/dL AST 19 (13-39) U/L ALT 18 (7-52) U/L Alkaline Phosphatase 82 (34-104) U/L Total Creatine Kinase 147 (10-223) U/L Troponin I 0.02 (<0.04) ng/mL B-Natriuretic Peptide ( - 100) pg/mL Total Protein 7.1 (6.4-8.9) g/dL Albumin 3.6 (3.2-5.2) g/dL Globulin 3.5 (2-4) g/dL Albumin/Globulin Ratio 1.0 (1-3) 01/31/17 01/31/17 Range/Units 20:46 20:46 WBC (3.5-10.8) 10^3/ul RBC (4.0-5.4) 10^6/ul Hgb (14.0-18.0) g/dl Hct (42-52) % MCV (80-94) fL MCH (27-31) pg MCHC (31-36) g/dl RDW (10.5-15) % Plt Count (150-450) 10^3/ul MPV (7.4-10.4) um3 Neut % (Auto) (38-83) % Lymph % (Auto) (25-47) % [place] % (Auto) (1-9) % Eos % (Auto) (0-6) % Baso % (Auto) (0-2) % Absolute Neuts (auto) (1.5-7.7) 10^3/ul Absolute Lymphs (auto) (1.0-4.8) 10^3/ul Absolute Monos (auto) (0-0.8) 10^3/ul Absolute Eos (auto) (0-0.6) 10^3/ul Absolute Basos (auto) (0-0.2) 10^3/ul Absolute Nucleated RBC 10^3/ul Nucleated RBC % D-Dimer, Quantitative 368 H (Less Than 230) ng/mL Sodium (133-145) mmol/L Potassium (3.5-5.0) mmol/L Chloride (101-111) mmol/L Carbon Dioxide (22-32) mmol/L Anion Gap (2-11) mmol/L BUN (6-24) mg/dL Creatinine (0.67-1.17) mg/dL Est GFR ( Amer) (>60) Est GFR (Non-Af Amer) (>60) BUN/Creatinine Ratio (8-20) Glucose (70-100) mg/dL Lactic Acid (0.5-2.0) mmol/L Calcium (8.6-10.3) mg/dL Total Bilirubin (0.2-1.0) mg/dL AST (13-39) U/L ALT (7-52) U/L Alkaline Phosphatase (34-104) U/L Total Creatine Kinase (10-223) U/L Troponin I (<0.04) ng/mL B-Natriuretic Peptide 146 H ( - 100) pg/mL Total Protein (6.4-8.9) g/dL Albumin (3.2-5.2) g/dL Globulin (2-4) g/dL Albumin/Globulin Ratio (1-3) Microbiology and Other Data: Microbiology 01/31/17 21:25 Aerobic Blood Culture - Preliminary Blood Venous No Growth Day 1 Anaerobic Blood Culture - Preliminary No Growth Day 1 02/01/17 06:20 Nasal Screen MRSA (PCR)(ANITA) - Final Nasal Mrsa Negative Assess/Plan/Problems-Billing Assessment: - Patient Problems (1) Respiratory failure Current Visit: Yes Status: Acute Code(s): J96.90 - RESPIRATORY FAILURE, UNSP , UNSP W HYPOXIA OR HYPERCAPNIA SNOMED Code(s): 772426338 Comment: Due to COPD, [place], pneumonia. Note DNR status. I spoke with his daughter at length about code status, prognosis. She wishes for CPR but no intubation. Continue BIPAP, tiortropium, antibiotics; prednisone taper. Daughter will bring in his CPAP machine, will use night of 02/02. Daughter will bring in his CPAP machine. (2) CHF (congestive heart failure) Current Visit: Yes Status: Acute Code(s): I50.9 - HEART FAILURE, UNSPECIFIED SNOMED Code(s): 38855339 Comment: Acute on chronic diastolic CHF. Continue IV furosemide, change to once daily. Urine output 3650 02/01. Remove Villatoro if he can stand. Echo showed nl LVEF, presence of LV diastolic dysfunction. Daily weights. (3) Diabetes Current Visit: Yes Status: Acute Code(s): E11.9 - TYPE 2 DIABETES MELLITUS WITHOUT COMPLICATIONS SNOMED Code(s): 08301973 Comment: FS glucose achs with Lispro by SS. (4) Morbid obesity Current Visit: Yes Status: Acute Code(s): E66.01 - MORBID (SEVERE) OBESITY DUE TO EXCESS CALORIES SNOMED Code(s): 888731262 Comment: BMI 51.0.
[2017-02-02] MEDS: Tiotropium CAP.INH* CAP.INH/18 MCG INH SCH (08:54)
[2017-02-02] MEDS: Mometasone/Formoter 200/5 MDI INH SCH ×2 (08:56→19:41)
--- NOTE | 2017-02-02 09:06 | PN ---
Progress Note - Progress Note Date of Service: 02/02/17 Note: Additional dx: diabetic neuropathy.
[2017-02-02] MEDS: predniSONE TAB* 20 MG PO SCH (10:06)
[2017-02-02] MEDS ORDERED: Calcium Carbonate CHEW TAB* 500 MG (TUMS) PO ONE (19:26)
[2017-02-02] MEDS: cefTRIAXone VIAL(*) 1,000 MG in NS 0.9% 50 ML* 50 ML IVPB SCH (20:54)
[2017-02-02] MEDS: Azithromycin IV(*) 500 MG in NS 0.9% 250 ML* 250 ML IVPB SCH (21:29)
[2017-02-03] MEDS: Pregabalin CAP(*) 100 MG PO SCH ×2 (08:04→23:10)
[2017-02-03] MEDS: predniSONE TAB* 20 MG PO SCH (08:05)
[2017-02-03] MEDS: Enoxaparin(*) 40 MG/0.4 ML SYR SUBCUT SCH (08:06)
[2017-02-03] MEDS: Insulin LISPRO* 1 UNITS UNIT SUBCUT SCH ×4 (08:06→22:48)
[2017-02-03] MEDS: Furosemide IV* 10 MG/ML 10 ML VIAL (100 MG) IV SCH ×2 (08:06→17:40)
[2017-02-03] MEDS: Nystatin TOP POWDER* 15 GM BTL TOPICAL SCH ×2 (08:10→12:33)
[2017-02-03] MEDS: Tiotropium CAP.INH* CAP.INH/18 MCG INH SCH (08:30)
[2017-02-03] MEDS: Mometasone/Formoter 200/5 MDI INH SCH ×2 (08:30→20:15)
[2017-02-03] MEDS ORDERED: Magnesium CITRATE* 300 ML BTL PO ONE (10:47)
[2017-02-03] MEDS ORDERED: Magnesium Hydroxide LIQ* 30 ML UDC PO PRN (10:48)
--- NOTE | 2017-02-03 14:45 | PN ---
Subjective Date of Service: 02/03/17 Interval History: Pt feels well. H/o chronic leg edema Objective Active Medications: Albuterol (Ventolin 2.5 Mg/3 Ml Neb.Milly*) 2.5 mg INH Q2H PRN PRN Reason: SOB/WHEEZING Dextrose (D50w Syringe 50 Ml*) 12.5 gm IV PUSH .FOR FS < 60 - SS PRN PRN Reason: FS < 60 Enoxaparin Sodium (Lovenox(*)) 40 mg SUBCUT Q24H [facility] Last Admin: 02/03/17 08:06 Dose: 40 mg Furosemide (Lasix Iv*) 80 mg IV 0800,1700 [facility] Last Admin: 02/03/17 08:06 Dose: 80 mg Ceftriaxone Sodium 1,000 mg/ (Sodium Chloride) 50 mls @ 200 mls/hr IVPB Q24H [facility] Last Admin: 02/02/17 20:54 Dose: 200 mls/hr Azithromycin 500 mg/ Sodium (Chloride) 250 mls @ 250 mls/hr IVPB Q24H [facility] Last Admin: 02/02/17 21:29 Dose: 250 mls/hr Insulin Human Lispro (Humalog*) 0 units SUBCUT ACHS [facility] PRN Reason: Protocol Last Admin: 02/03/17 12:32 Dose: 6 units Magnesium Hydroxide (Milk Of Magnreal Liq*) 30 ml PO Q4H PRN PRN Reason: CONSTIPATION Mometasone Furoate/Formoterol Fumar (Dulera 200/5 Mdi*) 2 puff INH BID [facility] Last Admin: 02/03/17 08:30 Dose: 2 puff Nystatin (Nystatin Top Powder*) 1 applic TOPICAL TID [facility] Last Admin: 02/03/17 12:33 Dose: 1 applic Ondansetron HCl (Zofran Inj*) 4 mg IV Q6H PRN PRN Reason: NAUSEA Prednisone (Deltasone Tab*) 40 mg PO DAILY [facility] Last Admin: 02/03/17 08:05 Dose: 40 mg Pregabalin (Lyrica Cap(*)) 600 mg PO BID [facility] Last Admin: 02/03/17 08:04 Dose: 600 mg Tiotropium [place] (Spiriva Cap.Inh*) 1 cap INH DAILY [facility] Last Admin: 02/03/17 08:30 Dose: 1 cap Vital Signs 0602/02/17 02/02/17 14:45 17:05 17:21 Temperature 98.1 F Pulse Rate 52 Respiratory 16 Rate Blood Pressure 133/58 146/62 (mmHg) O2 Sat by Pulse 93 92 Oximetry 02/02/17 02/02/17 02/02/17 19:26 19:42 20:00 Temperature 97.9 F Pulse Rate 56 52 Respiratory 20 16 22 Rate Blood Pressure 138/56 (mmHg) O2 Sat by Pulse 95 92 Oximetry 02/02/17 02/02/17 02/02/17 20:54 21:40 22:54 Temperature Pulse Rate Respiratory 22 21 Rate Blood Pressure (mmHg) O2 Sat by Pulse 92 Oximetry 02/02/17 02/03/17 02/03/17 23:33 03:39 07:27 Temperature 98.0 F 98.3 F Pulse Rate 57 50 49 Respiratory 18 20 20 Rate Blood Pressure 149/70 157/73 154/86 (mmHg) O2 Sat by Pulse 94 89 95 Oximetry 02/03/17 02/03/17 02/03/17 08:00 08:04 08:33 Temperature Pulse Rate 51 Respiratory 16 16 16 Rate Blood Pressure (mmHg) O2 Sat by Pulse 93 Oximetry 02/03/17 09:51 Temperature Pulse Rate Respiratory 16 Rate Blood Pressure (mmHg) O2 Sat by Pulse Oximetry Oxygen Devices in Use Now: Nasal Cannula - at 4 L Appearance: 71 yo M in nAd, AAOx3 Eyes: No Scleral Icterus, PERRLA Ears/Nose/Mouth/Throat: NL Teeth, Lips, Gums, Mucous Membranes Moist Neck: NL Appearance and Movements; NL JVP, Trachea Midline Respiratory: Symmetrical Chest Expansion and Respiratory Effort Cardiovascular: NL Sounds; No Murmurs; No JVD Abdominal: NL Sounds; No Tenderness; No Distention, No Hepatosplenomegaly Lymphatic: No Cervical Adenopathy Extremities: No Clubbing, Cyanosis, - - large lymphoedema b/l distal LE's Skin: - - venous staisis dermatitisw b/l distal LE's Neurological: Alert and Oriented x 3, NL Muscle Strength and Tone Result Diagrams: 02/01/17 06:13 02/02/17 05:55 Additional Lab and Data: Lab Results 01/31/17 01/31/17 01/31/17 Range/Units 20:46 20:46 20:46 WBC 12.1 H (3.5-10.8) 10^3/ul RBC 3.55 L (4.0-5.4) 10^6/ul Hgb 9.7 L (14.0-18.0) g/dl Hct 30 L (42-52) % MCV 85 (80-94) fL MCH 27 (27-31) pg MCHC 32 (31-36) g/dl RDW 16 H (10.5-15) % Plt Count 195 (150-450) 10^3/ul MPV 9 (7.4-10.4) um3 Neut % (Auto) 78.7 (38-83) % Lymph % (Auto) 7.8 L (25-47) % Merrick % (Auto) 10.8 H (1-9) % Eos % (Auto) 2.3 (0-6) % Baso % (Auto) 0.4 (0-2) % Absolute Neuts (auto) 9.5 H (1.5-7.7) 10^3/ul Absolute Lymphs (auto) 0.9 L (1.0-4.8) 10^3/ul Absolute Monos (auto) 1.3 H (0-0.8) 10^3/ul Absolute Eos (auto) 0.3 (0-0.6) 10^3/ul Absolute Basos (auto) 0 (0-0.2) 10^3/ul Absolute Nucleated RBC 0.01 10^3/ul Nucleated RBC % 0.1 D-Dimer, Quantitative (Less Than 230) ng/mL Sodium 139 (133-145) mmol/L Potassium 4.5 (3.5-5.0) mmol/L Chloride 100 L (101-111) mmol/L Carbon Dioxide 38 H (22-32) mmol/L Anion Gap 1 L (2-11) mmol/L BUN 33 H (6-24) mg/dL Creatinine 1.50 H (0.67-1.17) mg/dL Est GFR ( Amer) 59.3 (>60) Est GFR (Non-Af Amer) 46.1 (>60) BUN/Creatinine Ratio 22.0 H (8-20) Glucose 275 H (70-100) mg/dL Lactic Acid 1.0 (0.5-2.0) mmol/L Calcium 9.5 (8.6-10.3) mg/dL Total Bilirubin 0.30 (0.2-1.0) mg/dL AST 19 (13-39) U/L ALT 18 (7-52) U/L Alkaline Phosphatase 82 (34-104) U/L Total Creatine Kinase 147 (10-223) U/L Troponin I 0.02 (<0.04) ng/mL B-Natriuretic Peptide ( - 100) pg/mL Total Protein 7.1 (6.4-8.9) g/dL Albumin 3.6 (3.2-5.2) g/dL Globulin 3.5 (2-4) g/dL Albumin/Globulin Ratio 1.0 (1-3) 01/31/17 01/31/17 Range/Units 20:46 20:46 WBC (3.5-10.8) 10^3/ul RBC (4.0-5.4) 10^6/ul Hgb (14.0-18.0) g/dl Hct (42-52) % MCV (80-94) fL MCH (27-31) pg MCHC (31-36) g/dl RDW (10.5-15) % Plt Count (150-450) 10^3/ul MPV (7.4-10.4) um3 Neut % (Auto) (38-83) % Lymph % (Auto) (25-47) % Merrick % (Auto) (1-9) % Eos % (Auto) (0-6) % Baso % (Auto) (0-2) % Absolute Neuts (auto) (1.5-7.7) 10^3/ul Absolute Lymphs (auto) (1.0-4.8) 10^3/ul Absolute Monos (auto) (0-0.8) 10^3/ul Absolute Eos (auto) (0-0.6) 10^3/ul Absolute Basos (auto) (0-0.2) 10^3/ul Absolute Nucleated RBC 10^3/ul Nucleated RBC % D-Dimer, Quantitative 368 H (Less Than 230) ng/mL Sodium (133-145) mmol/L Potassium (3.5-5.0) mmol/L Chloride (101-111) mmol/L Carbon Dioxide (22-32) mmol/L Anion Gap (2-11) mmol/L BUN (6-24) mg/dL Creatinine (0.67-1.17) mg/dL Est GFR ( Amer) (>60) Est GFR (Non-Af Amer) (>60) BUN/Creatinine Ratio (8-20) Glucose (70-100) mg/dL Lactic Acid (0.5-2.0) mmol/L Calcium (8.6-10.3) mg/dL Total Bilirubin (0.2-1.0) mg/dL AST (13-39) U/L ALT (7-52) U/L Alkaline Phosphatase (34-104) U/L Total Creatine Kinase (10-223) U/L Troponin I (<0.04) ng/mL B-Natriuretic Peptide 146 H ( - 100) pg/mL Total Protein (6.4-8.9) g/dL Albumin (3.2-5.2) g/dL Globulin (2-4) g/dL Albumin/Globulin Ratio (1-3) Microbiology and Other Data: Microbiology 01/31/17 21:25 Aerobic Blood Culture - Preliminary Blood Venous No Growth Day 1 Anaerobic Blood Culture - Preliminary No Growth Day 1 02/01/17 06:20 Nasal Screen MRSA (PCR)(ANITA) - Final Nasal Mrsa Negative Assess/Plan/Problems-Billing Assessment: 71 yo M with h/o chronic hypoxemic respiratory failure/obesity hypoventilation syndrome presented with altered MS, and respiratory failure due to pneumonia and CHF - Patient Problems (1) CHF (congestive heart failure) Comment: Acute on chronic diastolic CHF. Continue IV furosemide. Echo showed nl LVEF, presence of LV diastolic dysfunction, EF 50-55%. Daily weights. (2) Respiratory failure Comment: Due to COPD, CHF, pneumonia. Acute on chronic respiratory failure. On CPAP at night. 02 needs decreasing daily , at home pt was at 2.5 L (3) Morbid obesity Current Visit: Yes Comment: BMI 51.0. (4) Diabetes Comment: FS glucose achs with Lispro by SS. (5) CKD stage 3 due to type 2 diabetes mellitus Comment: suspect creat at pt's baseline cont to monitor (6) DVT prophylaxis Comment: lovenox Status and Disposition: inpatient, plan to d/c home tomorrow
[2017-02-03] MEDS: cefTRIAXone VIAL(*) 1,000 MG in NS 0.9% 50 ML* 50 ML IVPB SCH (23:12)
[2017-02-04] MEDS: Azithromycin IV(*) 500 MG in NS 0.9% 250 ML* 250 ML IVPB SCH (00:16)
[2017-02-04] MEDS: Nystatin TOP POWDER* 15 GM BTL TOPICAL SCH ×3 (00:16→12:22)
[2017-02-04 07:13] LABS: BUN/Creatinine Ratio 28.7 (8-20); Calcium 8.7 mg/dL (8.6-10.3); EGFR African American 66.4 (>60); EGFR Non-African American 51.7 (>60)
[2017-02-04 08:02] VITALS: BP 138/67
[2017-02-04] MEDS: predniSONE TAB* 20 MG PO SCH (08:11)
[2017-02-04] MEDS: Pregabalin CAP(*) 100 MG PO SCH (08:11)
[2017-02-04] MEDS: Insulin LISPRO* 1 UNITS UNIT SUBCUT SCH ×2 (08:12→12:22)
[2017-02-04] MEDS: Furosemide IV* 10 MG/ML 10 ML VIAL (100 MG) IV SCH (08:12)
[2017-02-04] MEDS: Enoxaparin(*) 40 MG/0.4 ML SYR SUBCUT SCH (08:12)
[2017-02-04] MEDS: Tiotropium CAP.INH* CAP.INH/18 MCG INH SCH (08:27)
[2017-02-04] MEDS: Mometasone/Formoter 200/5 MDI INH SCH (08:27)
--- NOTE | 2017-02-05 09:55 | DS ---
CC: Dr. Samayoa DISCHARGE SUMMARY: DATE OF ADMISSION: 01/31/17 DATE OF DISCHARGE: 02/04/17 PRIMARY CARE PROVIDER: Dr. Aiden Samayoa. DISCHARGE DIAGNOSES: Acute hypercapnic and hypoxemic respiratory failure on chronic hypoxemic respi ratory failure due to community-acquired pneumonia and exacerbation of chronic combined systolic and diastolic congestive heart failure. SECONDARY DIAGNOSES: 1. History of diabetes type 2. 2. History of morbid obesity with BMI of 50. 3. History of chronic respiratory failure, on oxygen at 2-1/2 L at home with obesity hypoventilatio n syndrome. 4. History of congestive heart failure. 5. Coronary artery disease. 6. Hypertension. 7. History of obstructive sleep apnea, intolerant of CPAP. 8. Peripheral neuropathy. 9. Chronic bilateral lower extremity edema. 10. Super morbid obesity. MEDICATION AT DISCHARGE: 1. Augmentin 875 mg p.o. b.i.d. for a total of 4 days. 2. Azithromycin 250 mg daily for another day to complete a 5-day course. The remaining medications are unchanged include; 1. Amlodipine 2.5 mg daily. 2. Coenzyme Q10 with lysine daily. 3. Vitamin C 500 mg daily. 4. Proscar 5 mg daily. 5. Lasix 80 mg daily. 6. Glucosamine 1 tablet daily. 7. Metformin 500 mg b.i.d. 8. Nabumetone 750 mg b.i.d. 9. [place]-3 fatty acids 1 tablet daily. 10. Lyrica 600 mg b.i.d. 11. Flomax 0.4 mg daily. 12. Vitamin B complex 1 tablet daily. 13. Vitamin E capsule 400 units daily. Weight at discharge is 416 pounds. The patient is advised to check his weight on a daily basis and to call his doctor if his weight increases over 3 pounds. Visiting nurses was set up at the patient's discharge to follow up with the patient at home. At discharge, the patient is recommended to follow up with Dr. Samayoa in approximately one week, max imum 2 weeks after discharge. LABORATORY DATA AND STUDIES PERFORMED DURING THE HOSPITAL STAY: On 02/04/17, sodium of 140, potassiu m 4.0, chloride 95, carbon dioxide 42, BUN 39, creatinine 1.36. On 02/01/17, white blood cell count of 9.5, hemoglobin of 8.8, hematocrit of 28, and platelets of 17 0. ABG last obtained on 02/01/17 shows pH of 7.27, pCO2 of 87, pO2 of 153, and bicarb of 33. The patient's hemoglobin A1c was noted to be 7.6, obtained on 01/31/17. Transthoracic echocardiogram obtained on 02/01/17, showed poor acoustic window with EF of 50% to 55% with abnormal left ventricular diastolic function observed. Right ventricular thickness is moderat jaye increased and right ventricle moderately dilated. There was no evidence of aortic stenosis and mild dilatation of the ascending aorta at 3.6 cm. Portable chest x-ray at admission. Impression: "Bilateral infiltrates." Brain natriuretic peptide at admission was 146. HOSPITALIZATION COURSE: Jesus Ortiz is a 71-year-old male with history of chronic lymphedema, c hronic CHF as well as respiratory failure, oxygen dependent. The patient has super morbid obesity wi th BMI above 50. He presented to the hospital hallucinating with acute respiratory failure. He was noted to have acute respiratory acidosis with hypercapnia and hypoxemia. He required BiPAP on init ial ICU stay. After the BiPAP treatment, he responded very nicely and was transferred to the medica l floor. He was treated with intravenous Lasix for acute CHF. He was also treated with ceftriaxone and azithromycin for pneumonia. His chest x-ray showed bilateral lower lobes infiltrates. At this point, it is most likely that pneumonia precipitated exacerbation of his chronic CHF. Due to the p atcassidy's super morbid obesity and baseline immobility, the patient was evaluated by Physical Therapy and deemed to be a good candidate to return home. The patient's mobility at baseline is very limit ed with transfers with a walker from a chair to the bedside commode and back. Initially, the patient required a significant amount of oxygen, but by the time of discharge, he was back to his 2.5 L continuously, which he is recommended to continue at home. The patient is recommended to check his weight daily and to call his physician if his weight increas es over 3 pounds. We also discussed a no-salt diet. The patient apparently puts ketchup on all of his foods, which is high in salt. The patient is recommended to discontinue ketchup and use salt supplement. PHYSICAL EXAMINATION: At the time of discharge, blood pressure of 138/67, heart rate of 56 and regu lar, respiratory rate 22, oxygen saturation 90% on 2.5 L nasal cannula, and temperature of 98.3. Ge neral: The patient is a pleasant 71-year-old male, who is in no acute distress. Alert, awake and o riented x3. HEENT: Head: Atraumatic and normocephalic. Eyes: Pupils equal and reactive to light and accommodation. Oropharynx clear. Mucosa moist. Neck: Supple. No JVD. No bruits bilaterally . Cardiovascular: Regular rate and rhythm. No murmur. Respiratory: Clear to auscultation bilater ally. Abdomen: Soft and nontender. Bowel sounds present in all 4 quadrants. Extremities: Noted f or extensive lymphedema with chronic venous stasis changes in bilateral lower extremities. Pulses po lina palpable due to the extent of the lymphedema, but there is good capillary refill. There are no open areas of the skin. Neuro Evaluation: Speech clear. Cranial nerves II through XII are grossl y intact. Motor strength is 5/5 bilaterally. Please note that from the patient's medications at discharge due to that he had creatinine elevation of 1.5 and back down to 1.3 at discharge, it is possible that the patient has an element of chronic renal insufficiency, but we did not have the patient's baseline renal functions from the past for c omparison. Nevertheless, his lisinopril was discontinued. Due to the patient's baseline bradycardia throughout his hospital stay, his beta- ivana was discon tinued. If the patient's creatinine is improving, but at the time of discharge, I will start the patient on his metformin. Please note that this is a short summary of the patient's hospital stay. Please refer to further me dical records for details. TIME SPENT: Approximately 35 minutes was spent on the patient's discharge. [id number]/[facility] #: [id number]
== END 2017-02-04 14:10 | disposition home health service (06) | DRG 291 ==
LOC: ED 20:26 → ICU 21:14 → MED 02-02 08:59
PROVIDERS: ADMIT Hospitalist; ATTEND Internal Medicine
PROC: 5A09457 Assistance with Respiratory Ventilation, 24-96 Consecutive Hours, Continuous Positive Airway Pressure (ICD-10-PCS; principal; 2017-01-31)
DX: I13.0 Hypertensive heart and chronic kidney disease with heart failure and stage 1 through stage 4 chronic kidney disease, or unspecified chronic kidney disease (principal); J96.22 Acute and chronic respiratory failure with hypercapnia; J18.9 Pneumonia, unspecified organism; L03.115 Cellulitis of right lower limb; J44.0 Chronic obstructive pulmonary disease with (acute) lower respiratory infection; E11.42 Type 2 diabetes mellitus with diabetic polyneuropathy; E11.22 Type 2 diabetes mellitus with diabetic chronic kidney disease; Z68.43 Body mass index [BMI] 50.0-59.9, adult; N18.3 Chronic kidney disease, stage 3 (moderate); I50.43 Acute on chronic combined systolic (congestive) and diastolic (congestive) heart failure; E66.2 Morbid (severe) obesity with alveolar hypoventilation; L03.116 Cellulitis of left lower limb; I25.10 Atherosclerotic heart disease of native coronary artery without angina pectoris; G47.33 Obstructive sleep apnea (adult) (pediatric); I87.8 Other specified disorders of veins; Z66 Do not resuscitate; I77.819 Aortic ectasia, unspecified site; I25.2 Old myocardial infarction; Z99.81 Dependence on supplemental oxygen; Z88.8 Allergy status to other drugs, medicaments and biological substances; Z87.891 Personal history of nicotine dependence; Z82.49 Family history of ischemic heart disease and other diseases of the circulatory system
CPT/HCPCS: 36415; 36600; 71010; 80048; 80053; 82140; 82550; 82803; 83036; 83605; 83735; 83880; 84484; 85025; 85379; 85730; 87040; 87641; 93005; 93306; 94640; 94660; 94760; 96374; 99285; A9270-GY; C8929; J0456; J0696; J1650; J1940; J2920; J2930; J7512

== ENCOUNTER 2017-02-22 22:52 | Inpatient (IN) | payer MEDICARE, BC ==
[2017-02-22 23:59] LABS: Add Diff/Slide Review? Slide Review Added; Comments Flag Yes; Hematocrit 30 % (42-52); Hemoglobin 9.3 g/dl (14.0-18.0); Mean Corpuscular HGB Conc 31 g/dl (31-36); Mean Corpuscular Hemoglobin 26 pg (27-31); Mean Corpuscular Volume 83 fL (80-94); Mean Platelet Volume 9 um3 (7.4-10.4); Red Blood Count 3.57 10^6/ul (4.0-5.4); Red Cell Distribution Width 16 % (10.5-15); White Blood Count 8.7 10^3/ul (3.5-10.8)
[2017-02-23 00:35] LABS: Albumin 3.3 g/dL (3.2-5.2); Calcium 9.1 mg/dL (8.6-10.3); EGFR African American 60.7 (>60); EGFR Non-African American 47.2 (>60); Globulin 3.5 g/dL (2-4); Potassium 3.7 mmol/L (3.5-5.0); Total Bilirubin 0.3 mg/dL (0.2-1.0); Total Protein 6.8 g/dL (6.4-8.9)
[2017-02-23 00:37] LABS: Troponin I 0.03 ng/mL (<0.04)
[2017-02-23] MEDS ORDERED: Furosemide IV* 10 MG/ML 10 ML VIAL (100 MG) IV ONE (01:07)
--- NOTE | 2017-02-23 01:24 | HP ---
H&P (Free Text) History and Physical: PCP: Shannan Samayoa MD Date/Time of Evaluation: 02/23/2017 0125 CC: SOB, increased swelling HPI: Mr Ortiz is a 71YO super morbidly obese male with complex HX outlined below who was admitted to [facility] 01/31-02/04/2017 with a final diagnosis of acute hypercarbic, acute on chronic hypoxic respiratory failure 2nd CAP and exacerbation of chronic systolic & diastolic HF. He returns tonight reporting increasing BLE starting progressing to include BUE today. His nurse was concerned and called his PCP who requested him come to the office, but MR Ortiz was unable and so decided to present to [facility] ED. He began having a cough and increased SOB today, but denies sputum, chest pain, palpitations, or other issues. When asked about following a low salt diet, he states he is, but when asked what he ate today he states it was from a [place] restaurant. PMedHx CAD/UT chronic diastolic HF obesity-hypoventilation syndrome w/ 2nd chronic hypoxic respiratory failure, 2L NC continuous HX recent hypercarbic respiratory failure VAMSI intolerant of CPAP DM2 HTN peripheral neuropathy x4 chronic BLE venous stasis super morbid obesity Ambulatory Orders Nursing to reconcile. Amlodipine Besylate 2.5 mg PO DAILY 01/31/17 Ascorbic Acid TAB* [Vitamin C TAB*] 1 tab PO DAILY 01/31/17 Coq-10 200 mg PO DAILY 01/31/17 Finasteride TAB* [Proscar TAB*] 5 mg PO DAILY 01/31/17 Furosemide TAB* [Lasix TAB*] 80 mg PO DAILY 01/31/17 Glucosamine Hydrochloride [Glucosamine] 2 tab PO DAILY 01/31/17 Lysine 500 mg PO DAILY 01/31/17 Metformin HCl [Fortamet] 500 mg PO BID 01/31/17 Multiple Vitamins W/ Minerals [Multivitamin Adult] 1 tab PO DAILY 01/31/17 Nabumetone TAB* [Relafen TAB*] 750 mg PO BID 01/31/17 [place] 3 Fatty Acids-Clifton 6 FA [[place] 3-6-9 Complex] 1,200 mg PO DAILY 01/31/17 Pregabalin CAP(*) [Lyrica CAP(*)] 600 mg PO BID 01/31/17 Tamsulosin CAP* [Flomax CAP*] 0.4 mg PO DAILY 01/31/17 Vitamin B Complex CAP* [B Complex CAP*] 1 tab PO DAILY 01/31/17 Vitamin E CAP* 400 units PO DAILY 01/31/17 Amoxicillin/Clavulanate TAB* [Augmentin TAB 875*] 875 mg PO BID #8 tab 02/04/17 Azithromycin TAB* [Zithromax TAB (Z-JUDITH) 250 mg #6 tabs] 250 mg PO DAILY #1 tab 02/04/17 Allergies No Known Drug Allergy Allergy (Verified 02/03/17 10:52) See Comment antihistamines Adverse Reaction (Intermediate, Uncoded 01/31/17 23:10) Urinary Retention PSurgHx back surgery 2000 TUNA 2000 L rotator cuff repair 2009 SocHx: former smoker w/ <20PYHX, no alcohol or recreational drugs; lives with his , minimal ambulation requires walker, only leaves the house to go to doctor appointments; 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 ROS: as above, otherwise reviewed and all were negative Constitutional: NAD, normally developed, super-morbidly obese white male vitals: Vital Signs Temp 36.8 C 02/22/17 23:57 Pulse 79 02/22/17 23:57 Resp 18 02/22/17 23:57 BP 158/50 02/22/17 23:57 Pulse Ox 91 02/22/17 23:57 Intake & Output 02/22/17 02/22/17 02/23/17 11:59 23:59 11:59 Weight 188.694 kg HEENM: atraumatic; sclera/conjunctiva: non-icteric/clear; hearing: clinically intact; oropharynx: clear, mucosa moist Neck: soft tissue: non-tender; thyroid: normal Pulmonary: moderately coarse B, fair aeration, no accessory muscle use CV: RR/RR, normal S1S2, no carotid bruit, no jugular venous distention, non- palpable B DP/PT, 3+ chronic appearing BLE edema Abdominal: soft, non-distended, non-tender, no rebound/guarding/rigidity, normoactive bowel sounds, no hepatosplenomegaly or masses, no costovertebral angle tenderness Musculoskeletal: general: grossly intact, no obvious bony deformity Integumental: BLE with chronic venous stasis & chronic cellulitic changes R>L and worse than last admission Psychiatric orientation: AA&O to PPS affect: calm mood: cooperative eye contact: good content: reliable responses: timely insight: fair to good Testing: Lab Results 02/22/17 02/22/17 02/22/17 Range/Units 23:45 23:45 23:45 WBC 8.7 (3.5-10.8) 10^3/ul RBC 3.57 L (4.0-5.4) 10^6/ul Hgb 9.3 L (14.0-18.0) g/dl Hct 30 L (42-52) % MCV 83 (80-94) fL MCH 26 L (27-31) pg MCHC 31 (31-36) g/dl RDW 16 H (10.5-15) % Plt Count 191 (150-450) 10^3/ul MPV 9 (7.4-10.4) um3 Neut % (Auto) 74.4 (38-83) % Lymph % (Auto) 11.2 L (25-47) % [place] % (Auto) 9.1 H (1-9) % Eos % (Auto) 4.5 (0-6) % Baso % (Auto) 0.8 (0-2) % Absolute Neuts (auto) 6.5 (1.5-7.7) 10^3/ul Absolute Lymphs (auto) 1.0 (1.0-4.8) 10^3/ul Absolute Monos (auto) 0.8 (0-0.8) 10^3/ul Absolute Eos (auto) 0.4 (0-0.6) 10^3/ul Absolute Basos (auto) 0.1 (0-0.2) 10^3/ul Absolute Nucleated RBC 0.01 10^3/ul Nucleated RBC % 0.1 INR (Anticoag Therapy) 0.87 L (0.89-1.11) APTT 34.0 (26.0-36.3) seconds Sodium 137 (133-145) mmol/L Potassium 3.7 (3.5-5.0) mmol/L Chloride 96 L (101-111) mmol/L Carbon Dioxide 38 H (22-32) mmol/L Anion Gap 3 (2-11) mmol/L BUN 25 H (6-24) mg/dL Creatinine 1.47 H (0.67-1.17) mg/dL Est GFR ( Amer) 60.7 (>60) Est GFR (Non-Af Amer) 47.2 (>60) BUN/Creatinine Ratio 17.0 (8-20) Glucose 327 H (70-100) mg/dL Lactic Acid (0.5-2.0) mmol/L Calcium 9.1 (8.6-10.3) mg/dL Total Bilirubin 0.30 (0.2-1.0) mg/dL AST 13 (13-39) U/L ALT 13 (7-52) U/L Alkaline Phosphatase 82 (34-104) U/L Troponin I 0.03 (<0.04) ng/mL B-Natriuretic Peptide ( - 100) pg/mL Total Protein 6.8 (6.4-8.9) g/dL Albumin 3.3 (3.2-5.2) g/dL Globulin 3.5 (2-4) g/dL Albumin/Globulin Ratio 0.9 L (1-3) 02/22/17 02/22/17 Range/Units 23:45 23:45 WBC (3.5-10.8) 10^3/ul RBC (4.0-5.4) 10^6/ul Hgb (14.0-18.0) g/dl Hct (42-52) % MCV (80-94) fL MCH (27-31) pg MCHC (31-36) g/dl RDW (10.5-15) % Plt Count (150-450) 10^3/ul MPV (7.4-10.4) um3 Neut % (Auto) (38-83) % Lymph % (Auto) (25-47) % [place] % (Auto) (1-9) % Eos % (Auto) (0-6) % Baso % (Auto) (0-2) % Absolute Neuts (auto) (1.5-7.7) 10^3/ul Absolute Lymphs (auto) (1.0-4.8) 10^3/ul Absolute Monos (auto) (0-0.8) 10^3/ul Absolute Eos (auto) (0-0.6) 10^3/ul Absolute Basos (auto) (0-0.2) 10^3/ul Absolute Nucleated RBC 10^3/ul Nucleated RBC % INR (Anticoag Therapy) (0.89-1.11) APTT (26.0-36.3) seconds Sodium (133-145) mmol/L Potassium (3.5-5.0) mmol/L Chloride (101-111) mmol/L Carbon Dioxide (22-32) mmol/L Anion Gap (2-11) mmol/L BUN (6-24) mg/dL Creatinine (0.67-1.17) mg/dL Est GFR ( Amer) (>60) Est GFR (Non-Af Amer) (>60) BUN/Creatinine Ratio (8-20) Glucose (70-100) mg/dL Lactic Acid 1.2 (0.5-2.0) mmol/L Calcium (8.6-10.3) mg/dL Total Bilirubin (0.2-1.0) mg/dL AST (13-39) U/L ALT (7-52) U/L Alkaline Phosphatase (34-104) U/L Troponin I (<0.04) ng/mL B-Natriuretic Peptide 89 ( - 100) pg/mL Total Protein (6.4-8.9) g/dL Albumin (3.2-5.2) g/dL Globulin (2-4) g/dL Albumin/Globulin Ratio (1-3) ECG, personally reviewed: 1st degree AV block rate 72, poor R-wave progression, Q-waves in III/AVF CXR, personally reviewed: B infiltrates unchanged compared to 01/31 ECHO (02/01/2017): Conclusions: The study is technically limited due to poor acoustic windows. Poor valve evaluation due to poor images Moderate concentric left ventricular hypertrophy is observed. The estimated ejection fraction is 50- 55%. Abnormal left ventricular diastolic function is observed. The right ventricle wall thickness is moderately increased. The right ventricle is mild to moderately dilated. The right ventricular global systolic function is normal. There is no evidence of aortic stenosis. The mitral valve structure is not well visualized. There is trace tricuspid regurgitation. Unable to estimate the right ventricular systolic pressure. There is no significant pericardial effusion. There is mild dilatation of the ascending aorta.3.6 cm. Impression: 71M HX super morbid obesity, CHF, CAD/UT, ? DM2, HTN, VAMSI intolerant of CPAP, & recent hypoxic/hypercarbic respiratory failure presenting with exacerbation of chronic diastolic HF 2nd sodium indiscretion DIAGNOSIS & PLAN Primary acute on chronic diastolic HF : furosemide diuresis : strict I&Os : daily weights : guerra to gravity at patient request : nutrition consult for low sodium diet : supportive care acute on chronic BLE cellulitis & lymphedema : IV levofloxacin : would benefit from referral to a lymphedema clinic upon discharge Secondary CAD/UT : review meds once reconciled DM2 : A1c 7.6 01/2017 : insulin carb ratio diet : basal/bolus/correctional insulin HTN : review meds once reconciled VAMSI : intolerant of CPAP peripheral neuropathy x4 : review meds once reconciled chronic BLE edema : review meds once reconciled super morbid obesity : complicated by obesity-hypoventilation syndrome anemia : monitor periodically Admission Rational: inpatient for management of CHF not anticipated to resolve adequately w/i 48H to allow for discharge DVTp: heparin SQ Code Status: full cardiac, DNI HCP:
--- NOTE | 2017-02-23 01:57 | ED ---
Stanislaw Mirza Benjamin, scribed for Jenny Campos MD on 02/23/17 at 0141 . Shortness of Breath - HPI Summary HPI Summary: 71yo male BIBA with SOB. Pt has been coughing a lot and is scheduled to F/U with PCP soon but came in as his SOB worsened. Pt has hx of CHF and has had increased swelling in ankles and fingers. Pt also reports some nasal congestion. Pt is on 2L O2 at home and has low O2 sat today. Hx of DM, UT, CHF , PNA. Pt was also recently admitted for PNA last month. Takes water pill once a day. - History of Current Complaint Chief Complaint: EDRespiratoryDistress Time Seen by Provider: 02/22/17 23:07 Hx Obtained From: Patient, Family/Recreational Therapy Technician - Onset/Duration: Gradual Onset, Lasting Days, Still Present Timing: Constant Current Severity: Mild Dyspnea At: Rest Aggrevating Factors: Nothing Alleviating Factors: Oxygen Associated Signs & Symptoms: Cough (Nonproductive), Nasal Congestion - Allergy/Home Medications Allergies/Adverse Reactions: Allergies Allergy/AdvReac Type Severity Reaction Status Date / Time No Known Drug Allergy Allergy See Comment Verified 02/03/17 10:52 antihistamines AdvReac Intermediate Urinary Uncoded 01/31/17 23:10 Retention PMH/Surg Hx/FS Hx/Imm Hx Endocrine/Hematology History: Reports: Hx Diabetes Denies: Hx Anticoagulant Therapy, Hx Blood Disorders, Hx Blood Transfusions, Hx Bone Marrow Disease, Hx Systemic Lupus Erythematosus, Hx Sickle Cell Disease , Hx Thyroid Disease, Hx Anemia, Hx Unexplained Bleeding, Other Endocrine/ Hematological Disorders Cardiovascular History: Reports: Hx Angina, Hx Cardiac Arrest, Hx Congestive Heart Failure, Hx Coronary Artery Disease, Hx Hypertension, Hx Peripheral Vascular Disease Denies: Hx Aneurysm, Hx Angioplasty, Hx Auto Implanted Cardiovert Defib, Hx Cardiomegaly, Hx Congenital Heart Disease, Hx Deep Vein Thrombosis, Hx Embolism , Hx Hypercholesterolemia, Hx Hypotension, Hx Pacemaker/ICD, Hx Rheumatic Fever , Hx Syncope, Hx Valvular Heart Disease, Other Cardiovascular Problems/Disorders Respiratory History: Reports: Hx Chronic Obstructive Pulmonary Disease (COPD), Hx Pneumonia, Hx Sleep Apnea Denies: Hx Asthma, Hx Chronic Bronchitis, Hx Cystic Fibrosis, Hx Lung Cancer , Hx Pleural Effusion, Hx Pulmonary Edema, Hx Pulmonary Embolism, Hx Seasonal Allergies, Other Respiratory Problems/Disorders GI History: Denies: Hx Cirrhosis, Hx Crohn's Disease, Hx Diverticulosis, Hx Gall Bladder Disease, Hx Gastroesophageal Reflux Disease, Hx Gastrointestinal Bleed, Hx Hiatal Hernia, Hx Irritable Bowel, Hx Jaundice, Hx Obstructive Bowel, Hx Ileostomy, Hx Pyloric Stenosis, Hx Ulcer, Other GI Disorders History: Reports: Hx Benign Prostatic Hyperplasia Denies: Hx Acute Renal Failure, Hx Chronic Renal Failure, Hx Dialysis, Hx Kidney Infection, Hx Kidney Stones, Other Problems/Disorders Musculoskeletal History: Reports: Hx Back Problems Denies: Hx Arthritis, Hx Bursitis, Hx Congenital Bone Abnormalities, Hx Fibromyalgia, Hx Gout, Hx Orthopedic Injury, Hx Osteoporosis, Hx Scoliosis, Hx Tendonitis Sensory History: Reports: Hx Contacts or Glasses, Hx Hearing Aid - patient left at home, Hx Hearing Problem Denies: Hx Cataracts, Hx Eye Injury, Hx Eye Prosthesis, Hx Glaucoma, Hx Legally Blind, Hx Macular Degeneration, Hx Vision Problem, Hx Deafness, Other Sensory Impairments Opthamlomology History: Reports: Hx Contacts or Glasses Denies: Hx Cataracts, Hx Eye Injury, Hx Eye Prosthesis, Hx Glaucoma, Hx Legally Blind, Hx Macular Degeneration, Hx Vision Problem, Other Sensory Impairments Neurological History: Reports: Hx Nerve Disease Denies: Hx Dementia, Hx Developmental Delay, Hx Headaches, Hx Migraine, Hx Seizures, Hx Spinal Cord Injury, Hx Transient Ischemic Attacks (TIA), Other Neuro Impairments/Disorders Psychiatric History: Reports: Hx Anxiety, Hx Post Traumatic Stress Disorder Denies: Hx Attention Deficit Hyperactivity Disorder, Hx Eating Disorder, Hx Depression, Hx Panic Disorder, Hx Inpatient Treatment, Hx Community Mental Health Tx, Hx Schizophrenia, Hx Bipolar Disorder, Hx Suicide Attempt, Hx of Violent Episodes Against Others, Hx Substance Abuse, Other Psychiatric Issues/ Disorders - Cancer History Hx Chemotherapy: No Hx Radiation Therapy: No Hx Palliative Cancer Treatment: No - Surgical History Surgery Procedure, Year, and Place: Rotator cuff repair 2009. Laminectomy 2000. TURP 2000 Hx Anesthesia Reactions: No Infectious Disease History: No Infectious Disease History: Denies: Hx Hepatitis, Hx Tuberculosis, Traveled Outside the [place] in Last 30 Days - Family History Known Family History: Positive: Cardiac Disease, Hypertension, Diabetes - Social History Occupation: Disabled, Retired Lives: With Family Alcohol Use: None Substance Use Type: Reports: None Smoking Status (MU): Former Smoker Review of Systems Constitutional: Negative Negative: Fever, Chills Eyes: Negative ENT: Negative Negative: Chest Pain Positive: Shortness Of Breath, Cough Gastrointestinal: Negative Genitourinary: Negative Musculoskeletal: Negative Skin: Negative Neurological: Negative Psychological: Normal All Other Systems Reviewed And Are Negative: Yes Physical Exam Triage Information Reviewed: Yes Vital Signs On Initial Exam: Initial Vitals Temp Pulse Resp BP Pulse Ox 98.5 F 91 21 133/56 91 02/22/17 23:04 02/22/17 23:04 02/22/17 23:04 02/22/17 23:04 02/22/17 23:04 Vital Signs Reviewed: Yes Appearance: Positive: Well-Appearing, No Pain Distress, Obese Skin: Positive: Warm, Skin Color Reflects Adequate Perfusion, Dry Head/Face: Positive: Normal Head/Face Inspection Eyes: Positive: EOMI, NELA ENT: Positive: Hearing grossly normal, Pharynx normal, TMs normal Neck: Positive: Supple, Nontender Respiratory/Lung Sounds: Positive: Clear to Auscultation, Decreased Breath Sounds Cardiovascular: Positive: RRR, Pulses are Symmetrical in both Upper and Lower Extremities, Other - gallops Abdomen Description: Positive: Nontender, Soft Bowel Sounds: Positive: Present Musculoskeletal: Positive: Strength/ROM Intact, Edema Left - pedal, up to thigh , Edema Right - pedal, up to thigh Neurological: Positive: Sensory/Motor Intact, Alert, Oriented to Person Place, Time, CN Intact II-III Psychiatric: Positive: Affect/Mood Appropriate - [place] Coma Scale Coma Scale Total: 15 Diagnostics - Vital Signs Vital Signs Temp Pulse Resp BP Pulse Ox 02/22/17 23:57 98.3 F 79 18 158/50 91 02/22/17 23:04 98.5 F 91 21 133/56 91 - Laboratory Lab Results: Lab Results 02/22/17 02/22/17 02/22/17 Range/Units 23:45 23:45 23:45 WBC 8.7 (3.5-10.8) 10^3/ul RBC 3.57 L (4.0-5.4) 10^6/ul Hgb 9.3 L (14.0-18.0) g/dl Hct 30 L (42-52) % MCV 83 (80-94) fL MCH 26 L (27-31) pg MCHC 31 (31-36) g/dl RDW 16 H (10.5-15) % Plt Count 191 (150-450) 10^3/ul MPV 9 (7.4-10.4) um3 Neut % (Auto) 74.4 (38-83) % Lymph % (Auto) 11.2 L (25-47) % Kern % (Auto) 9.1 H (1-9) % Eos % (Auto) 4.5 (0-6) % Baso % (Auto) 0.8 (0-2) % Absolute Neuts (auto) 6.5 (1.5-7.7) 10^3/ul Absolute Lymphs (auto) 1.0 (1.0-4.8) 10^3/ul Absolute Monos (auto) 0.8 (0-0.8) 10^3/ul Absolute Eos (auto) 0.4 (0-0.6) 10^3/ul Absolute Basos (auto) 0.1 (0-0.2) 10^3/ul Absolute Nucleated RBC 0.01 10^3/ul Nucleated RBC % 0.1 INR (Anticoag Therapy) 0.87 L (0.89-1.11) APTT 34.0 (26.0-36.3) seconds Sodium 137 (133-145) mmol/L Potassium 3.7 (3.5-5.0) mmol/L Chloride 96 L (101-111) mmol/L Carbon Dioxide 38 H (22-32) mmol/L Anion Gap 3 (2-11) mmol/L BUN 25 H (6-24) mg/dL Creatinine 1.47 H (0.67-1.17) mg/dL Est GFR ( Amer) 60.7 (>60) Est GFR (Non-Af Amer) 47.2 (>60) BUN/Creatinine Ratio 17.0 (8-20) Glucose 327 H (70-100) mg/dL Lactic Acid (0.5-2.0) mmol/L Calcium 9.1 (8.6-10.3) mg/dL Total Bilirubin 0.30 (0.2-1.0) mg/dL AST 13 (13-39) U/L ALT 13 (7-52) U/L Alkaline Phosphatase 82 (34-104) U/L Troponin I 0.03 (<0.04) ng/mL B-Natriuretic Peptide ( - 100) pg/mL Total Protein 6.8 (6.4-8.9) g/dL Albumin 3.3 (3.2-5.2) g/dL Globulin 3.5 (2-4) g/dL Albumin/Globulin Ratio 0.9 L (1-3) 02/22/17 02/22/17 Range/Units 23:45 23:45 WBC (3.5-10.8) 10^3/ul RBC (4.0-5.4) 10^6/ul Hgb (14.0-18.0) g/dl Hct (42-52) % MCV (80-94) fL MCH (27-31) pg MCHC (31-36) g/dl RDW (10.5-15) % Plt Count (150-450) 10^3/ul MPV (7.4-10.4) um3 Neut % (Auto) (38-83) % Lymph % (Auto) (25-47) % Kern % (Auto) (1-9) % Eos % (Auto) (0-6) % Baso % (Auto) (0-2) % Absolute Neuts (auto) (1.5-7.7) 10^3/ul Absolute Lymphs (auto) (1.0-4.8) 10^3/ul Absolute Monos (auto) (0-0.8) 10^3/ul Absolute Eos (auto) (0-0.6) 10^3/ul Absolute Basos (auto) (0-0.2) 10^3/ul Absolute Nucleated RBC 10^3/ul Nucleated RBC % INR (Anticoag Therapy) (0.89-1.11) APTT (26.0-36.3) seconds Sodium (133-145) mmol/L Potassium (3.5-5.0) mmol/L Chloride (101-111) mmol/L Carbon Dioxide (22-32) mmol/L Anion Gap (2-11) mmol/L BUN (6-24) mg/dL Creatinine (0.67-1.17) mg/dL Est GFR ( Amer) (>60) Est GFR (Non-Af Amer) (>60) BUN/Creatinine Ratio (8-20) Glucose (70-100) mg/dL Lactic Acid 1.2 (0.5-2.0) mmol/L Calcium (8.6-10.3) mg/dL Total Bilirubin (0.2-1.0) mg/dL AST (13-39) U/L ALT (7-52) U/L Alkaline Phosphatase (34-104) U/L Troponin I (<0.04) ng/mL B-Natriuretic Peptide 89 ( - 100) pg/mL Total Protein (6.4-8.9) g/dL Albumin (3.2-5.2) g/dL Globulin (2-4) g/dL Albumin/Globulin Ratio (1-3) Result Diagrams: 02/22/17 23:45 02/22/17 23:45 Lab Statement: Any lab studies that have been ordered have been reviewed, and results considered in the medical decision making process. - Radiology CXR Xray Interpretation: Positive (See Comments) - failure in the left side of cardiac effusion Radiology Interpretation Completed By: ED Physician - EKG 7337. Cardiac Rate: NL - 72bpm EKG Rhythm: Sinus Rhythm ST Segment: Normal Ectopy: None EKG Comparison: No Significant Change Course/Dx - Course Course Of Treatment: 71 yo morbidly obese male with chronic extensive lower extremity edema and chf, pt admitted by Dr. Beckett - Diagnoses Provider Diagnoses: CHF (congestive heart failure) - Physician Notifications Discussed Care of Patient With: Reji Shaw Time Discussed With Above Provider: 01:17 Discharge - Discharge Plan Condition: Guarded Disposition: ADMITTED TO [facility] The documentation as recorded by the Stanislaw sherman Benjamin accurately reflects the service I personally performed and the decisions made by me, Jenny Campos MD.
[2017-02-23] MEDS ORDERED: Ondansetron INJ* 2 MG/ML VIAL IV PRN (02:20)
[2017-02-23] MEDS ORDERED: CMCS: Melatonin (NF) 3 MG TAB PO PRN (02:20)
[2017-02-23] MEDS ORDERED: Albuterol 2.5 MG/3 ML NEB.SOL* (0.083%) INH PRN (02:20)
[2017-02-23 05:04] LABS: Hematocrit 30 % (42-52); Hemoglobin 9.3 g/dl (14.0-18.0); Mean Corpuscular HGB Conc 31 g/dl (31-36); Mean Corpuscular Hemoglobin 26 pg (27-31); Mean Corpuscular Volume 84 fL (80-94); Mean Platelet Volume 9 um3 (7.4-10.4); Red Blood Count 3.51 10^6/ul (4.0-5.4); Red Cell Distribution Width 16 % (10.5-15); White Blood Count 9.6 10^3/ul (3.5-10.8)
[2017-02-23 05:19] LABS: BUN/Creatinine Ratio 19.3 (8-20); EGFR African American 64.2 (>60); Potassium 3.6 mmol/L (3.5-5.0)
[2017-02-23 05:22] LABS: Troponin I 0.03 ng/mL (<0.04)
[2017-02-23] MEDS: Omeprazole CAP* 20 MG PO SCH (05:53)
--- NOTE | 2017-02-23 07:13 | RAD ---
INDICATION: Short of breath COMPARISON: January 31, 2017 TECHNIQUE: An AP portable view obtained at 2331 hours is submitted. FINDINGS: Bones/Soft Tissues: There are no acute bony findings. Cardiomediastinal: The cardiac silhouette, central pulmonary vessel, and interstitium are prominent compatible with interstitial congestion. Given these diffuse changes coexistent infiltrates are not excluded.. Lungs: Diffuse interstitial changes as noted above. Pleura: No significant effusions. Other: None IMPRESSION: MODERATE VASCULAR CONGESTION.
[2017-02-23 07:28] LABS: Urine Bacteria Absent (Absent); Urine Bilirubin Negative (Negative); Urine Glucose 1+(50 mg/dL) (Negative); Urine Nitrite Negative (Negative)
[2017-02-23] MEDS: Furosemide IV* 10 MG/ML 10 ML VIAL (100 MG) IV SCH ×2 (08:15→12:17)
[2017-02-23] MEDS: Insulin LISPRO* 1 UNITS UNIT SUBCUT SCH ×7 (08:18→21:06)
[2017-02-23] MEDS: Levofloxacin 500 MG IVPREMIX(* 500 MG/100 ML BAG IVPB SCH (08:19)
[2017-02-23] MEDS: Acetaminophen TAB* 325 MG PO PRN (10:25)
[2017-02-23] MEDS: Potassium Chlor TAB* 20 MEQ TAB.ER PO SCH ×2 (13:06→21:07)
[2017-02-23] MEDS: Heparin VIAL(*) 5000 UNITS/ML VIAL (FIVE THOUSAND) SUBCUT SCH ×2 (13:07→21:07)
--- NOTE | 2017-02-23 17:32 | PN ---
Hospitalist Progress Note HOSPITALIST ADDENDUM Patient seen and examined at bedside. He feels better today, with less dyspnea, but not back to baseline. Selected Entries 02/23/17 15:35 Temperature 97.7 F Pulse Rate 61 Respiratory 18 Rate Blood Pressure 138/58 (mmHg) O2 Sat by Pulse 94 Oximetry CVS: normal S1 and S2, RRR. Chest: BS+ bilaterally with bilateral basilar crackles. A/P: Acute diastolic CHF exacerbation secondary to non-compliance. - Continue current management with Furosemide. - Dietary education.
[2017-02-23] MEDS ORDERED: Insulin GLARGINE(*) 1 UNITS UNIT SUBCUT SCH (21:00)
[2017-02-23] MEDS: Pregabalin CAP(*) 100 MG PO SCH (21:07)
[2017-02-24 05:34] LABS: Hematocrit 29 % (42-52); Hemoglobin 9.3 g/dl (14.0-18.0); Mean Corpuscular HGB Conc 32 g/dl (31-36); Mean Corpuscular Hemoglobin 27 pg (27-31); Mean Corpuscular Volume 83 fL (80-94); Mean Platelet Volume 9 um3 (7.4-10.4); Red Blood Count 3.53 10^6/ul (4.0-5.4); Red Cell Distribution Width 16 % (10.5-15); White Blood Count 10.4 10^3/ul (3.5-10.8)
[2017-02-24] MEDS: Omeprazole CAP* 20 MG PO SCH (05:45)
[2017-02-24] MEDS: Heparin VIAL(*) 5000 UNITS/ML VIAL (FIVE THOUSAND) SUBCUT SCH ×3 (05:45→21:30)
[2017-02-24 05:51] LABS: Anion Gap 4 mmol/L (2-11); BUN/Creatinine Ratio 18.3 (8-20); Blood Urea Nitrogen 24 mg/dL (6-24); CO2 Carbon Dioxide 40 mmol/L (22-32); Chloride 95 mmol/L (101-111); EGFR African American 69.4 (>60); EGFR Non-African American 53.9 (>60); Glucose 148 mg/dL (70-100); Sodium 139 mmol/L (133-145)
[2017-02-24] MEDS ORDERED: Heparin VIAL(*) 5000 UNITS/ML VIAL (FIVE THOUSAND) SUBCUT SCH (06:00)
[2017-02-24 06:14] LABS: Iron 29 ug/dL (50-212); Total Iron Binding Capacity 308 mcg/dL (250-450); Transferrin 220 mg/dL (203-362)
[2017-02-24 06:36] LABS: Ferritin 265.3 ng/mL (24-336)
[2017-02-24 06:40] LABS: Folate 18.87 ng/mL (>3.99)
[2017-02-24 06:41] LABS: Vitamin B12 > 1450 pg/mL (180-914)
--- NOTE | 2017-02-24 07:42 | RAD ---
INDICATION: Hypoxia COMPARISON: February 22, 2017 TECHNIQUE: An AP portable view obtained at 0028 hours is submitted. FINDINGS: Bones/Soft Tissues: There are no acute bony findings. Cardiomediastinal: The heart is normal in size. Central pulmonary vessels and interstitium are prominent compatible with vascular congestion. Given these diffuse changes it is not possible to exclude a superimposed pneumonitis. Lungs: No focal consolidation. Diffuse interstitial changes.. Pleura: No significant pleural effusions. Other: None IMPRESSION: MODERATE VASCULAR CONGESTION, UNCHANGED.
[2017-02-24] MEDS: Furosemide IV* 10 MG/ML 10 ML VIAL (100 MG) IV SCH ×2 (08:36→11:50)
[2017-02-24] MEDS: Insulin LISPRO* 1 UNITS UNIT SUBCUT SCH ×7 (08:40→21:29)
[2017-02-24] MEDS: Potassium Chlor TAB* 20 MEQ TAB.ER PO SCH ×2 (08:41→21:26)
[2017-02-24] MEDS: Finasteride TAB* 5 MG PO SCH (08:41)
[2017-02-24] MEDS: Ascorbic Acid TAB* 500 MG PO SCH (08:41)
[2017-02-24] MEDS: Vitamin THERAPEUTIC TAB PO SCH (08:41)
[2017-02-24] MEDS: Levofloxacin 500 MG IVPREMIX(* 500 MG/100 ML BAG IVPB SCH (08:43)
[2017-02-24] MEDS: Tamsulosin CAP* 0.4 MG PO SCH (08:43)
[2017-02-24] MEDS: amLODIPine TAB* 5 MG PO SCH (08:44)
[2017-02-24] MEDS: Pregabalin CAP(*) 100 MG PO SCH ×2 (08:46→21:26)
[2017-02-24] MEDS ORDERED: Vitamin E CAP* 200 UNITS PO SCH (09:00)
--- NOTE | 2017-02-24 14:01 | PN ---
Subjective Date of Service: 02/24/17 Interval History: HOSPITALIST PROGRESS NOTE Patient seen and examined at bedside. He feels better today. Dyspnea is close to his baseline. Denies CP or palpitations. Family History: Unchanged from Admission Social History: Unchanged from Admission Past Medical History: Unchanged from Admission Objective Active Medications: Acetaminophen (Tylenol Tab*) 650 mg PO Q6H PRN PRN Reason: FEVER/PAIN Last Admin: 02/23/17 10:25 Dose: 650 mg Albuterol (Ventolin 2.5 Mg/3 Ml Neb.Milly*) 2.5 mg INH Q2H PRN PRN Reason: SOB/WHEEZING Amlodipine Besylate (Norvasc Tab*) 2.5 mg PO DAILY [facility] Last Admin: 02/24/17 08:44 Dose: 2.5 mg Ascorbic Acid (Vitamin C Tab*) 500 mg PO DAILY [facility] Last Admin: 02/24/17 08:41 Dose: 500 mg Finasteride (Proscar Tab*) 5 mg PO DAILY [facility] Last Admin: 02/24/17 08:41 Dose: 5 mg Furosemide (Lasix Iv*) 60 mg IV 0800,1200 [facility] Last Admin: 02/24/17 11:50 Dose: 60 mg Heparin Sodium (Porcine) (Heparin Vial(*)) 5,000 units SUBCUT Q8HR [facility] Last Admin: 02/24/17 13:01 Dose: 5,000 units Levofloxacin/Dextrose (Levaquin 500 Mg Ivpremix(*)) 500 mg in 100 mls @ 100 mls /hr IVPB Q24H [facility] Last Admin: 02/24/17 08:43 Dose: 100 mls/hr Insulin Glargine (Lantus(*)) 30 units SUBCUT 2100 [facility] Stop: 02/24/17 20:00 Last Admin: 02/23/17 21:06 Dose: 30 units Insulin Human Lispro (Humalog*) 0 units SUBCUT AC [facility] PRN Reason: Protocol Last Admin: 02/24/17 13:01 Dose: 4 units Insulin Human Lispro (Humalog*) 0 units SUBCUT ACHS [facility] PRN Reason: Protocol Last Admin: 02/24/17 11:50 Dose: 6 unit Melatonin (Melatonin (Nf)) 3 mg PO BEDTIME PRN; Protocol PRN Reason: Sleep Multivitamins (Theragran Tab*) 1 tab PO DAILY [facility] Last Admin: 02/24/17 08:41 Dose: 1 tab Omeprazole (Prilosec Cap*) 20 mg PO DAILY@0600 [facility] Last Admin: 02/24/17 05:45 Dose: 20 mg Ondansetron HCl (Zofran Inj*) 4 mg IV Q6H PRN PRN Reason: NAUSEA Potassium Chloride (Klor Con Er Tab*) 20 meq PO BID [facility] Last Admin: 02/24/17 08:41 Dose: 20 meq Pregabalin (Lyrica Cap(*)) 600 mg PO BID [facility] Last Admin: 02/24/17 08:46 Dose: 600 mg Tamsulosin HCl (Flomax Cap*) 0.4 mg PO DAILY [facility] Last Admin: 02/24/17 08:43 Dose: 0.4 mg Vitamin E (Vitamin E Cap*) 400 unit PO DAILY [facility] Vital Signs 02/24/17 11:08 Temperature 97.3 F Pulse Rate 57 Respiratory 18 Rate Blood Pressure 148/59 (mmHg) O2 Sat by Pulse 97 Oximetry Oxygen Devices in Use Now: - - Oxymask Appearance: Morbid obese elderly male sitting up in a recliner in [facility]. Eyes: No Scleral Icterus Ears/Nose/Mouth/Throat: Mucous Membranes Moist Neck: Trachea Midline Respiratory: Symmetrical Chest Expansion and Respiratory Effort, - - BS+ bilaterally with bibasilar crackles Cardiovascular: RRR - Normal S1 and S2 Abdominal: NL Sounds; No Tenderness; No Distention - obese Extremities: - - Severe LE edema with chronic skin changes and erythema Neurological: Alert and Oriented x 3, NL Muscle Strength and Tone Lines/Tubes/Other Access: Clean, Dry and Intact Peripheral IV Nutrition: Taking PO's Result Diagrams: 02/24/17 05:06 02/24/17 05:06 Assess/Plan/Problems-Billing Assessment: Mr. Ortiz is a 71yo M with PMH of morbid obesity, CAD, type 2 DM, obesity hypoventilation syndrome with chronic respiratory failure, diastolic CHF, VAMSI on CPAP, peripheral neuropathy, CKD stage 3, who presented to ED with c/o dyspnea, found to have acute diastolic CHF exacerbation. - Patient Problems (1) Acute diastolic CHF (congestive heart failure) Comment: - Suspect dietary non-compliance precipitated this episode. - Echo done 02/02 showed EF 50-55%. - Responding well to Furosemide. - Monitor daily weight, electrolytes, and renal function. - Dietary education. (2) Acute and chronic respiratory failure Comment: - Patient requires 2.5 liters on supplemental O2 at baseline, but now requiring 6 liters. (3) Diabetes Comment: - Last A1c was 7.6 end of January. - Continue Lantus with Lispro SS. (4) HTN (hypertension) Comment: - Controlled. - Continue Amlodipine. (5) Diabetic neuropathy Comment: - Continue Lyrica. (6) Bilateral lower leg cellulitis Comment: - Combination of stasis dermatitis and infection. - Change antibiotics to Cefazolin. (7) Anemia Comment: - Suspect anemia of renal disease. Iron is borderline low, but ferritin is normal. - Check erythropoietin. (8) Morbid obesity Comment: - Will refer to [facility]. (9) DVT prophylaxis Comment: - SQ heparin. (10) Full code status Status and Disposition: Inpatient.
[2017-02-24] MEDS: ceFAZolin 1 GM in Dextrose (*) 1 GM/50 ML BAG IVPB SCH ×2 (15:10→21:26)
[2017-02-25] MEDS: ceFAZolin 1 GM in Dextrose (*) 1 GM/50 ML BAG IVPB SCH ×4 (03:00→21:00)
[2017-02-25] MEDS ORDERED: diPHENhydraMINE PO* 25 MG PO ONE (04:08)
[2017-02-25] MEDS: Omeprazole CAP* 20 MG PO SCH (05:21)
[2017-02-25] MEDS: Heparin VIAL(*) 5000 UNITS/ML VIAL (FIVE THOUSAND) SUBCUT SCH ×3 (05:21→21:03)
[2017-02-25 09:50] LABS: BUN/Creatinine Ratio 21.1 (8-20); Calcium 8.9 mg/dL (8.6-10.3); EGFR African American 81.4 (>60); EGFR Non-African American 63.3 (>60); Potassium 4.1 mmol/L (3.5-5.0)
[2017-02-25] MEDS: Furosemide IV* 10 MG/ML 10 ML VIAL (100 MG) IV SCH ×2 (10:09→13:42)
[2017-02-25] MEDS: Insulin LISPRO* 1 UNITS UNIT SUBCUT SCH ×7 (10:12→22:31)
[2017-02-25] MEDS: Vitamin E CAP* 400 UNIT PO SCH (10:17)
[2017-02-25] MEDS: Tamsulosin CAP* 0.4 MG PO SCH (10:17)
[2017-02-25] MEDS: Pregabalin CAP(*) 100 MG PO SCH ×2 (10:17→21:02)
[2017-02-25] MEDS: amLODIPine TAB* 5 MG PO SCH (10:18)
[2017-02-25] MEDS: Ascorbic Acid TAB* 500 MG PO SCH (10:18)
[2017-02-25] MEDS: Finasteride TAB* 5 MG PO SCH (10:18)
[2017-02-25] MEDS: Potassium Chlor TAB* 20 MEQ TAB.ER PO SCH ×2 (10:18→21:03)
[2017-02-25] MEDS: Acetaminophen TAB* 325 MG PO PRN (10:18)
[2017-02-25] MEDS: Vitamin THERAPEUTIC TAB PO SCH (10:18)
[2017-02-25] MEDS: Lidocaine PATCH 5%* 1 PATCH TRANSDERM SCH (13:39)
[2017-02-25] MEDS ORDERED: Insulin LISPRO* 1 UNITS UNIT SUBCUT SCH (14:46)
--- NOTE | 2017-02-25 14:46 | PN ---
Subjective Date of Service: 02/25/17 Interval History: HOSPITALIST PROGRESS NOTE Patient seen and examined at bedside. His breathing is better today, but still requires 6 liters of O2 and becomes dyspneic with exertion. When trying to transfer back to bed last night, he developed right shoulder and low back pain. Family History: Unchanged from Admission Social History: Unchanged from Admission Past Medical History: Unchanged from Admission Objective Active Medications: Acetaminophen (Tylenol Tab*) 650 mg PO Q6H PRN PRN Reason: FEVER/PAIN Last Admin: 02/25/17 10:18 Dose: 650 mg Albuterol (Ventolin 2.5 Mg/3 Ml Neb.Milly*) 2.5 mg INH Q2H PRN PRN Reason: SOB/WHEEZING Amlodipine Besylate (Norvasc Tab*) 2.5 mg PO DAILY [facility] Last Admin: 02/25/17 10:18 Dose: 2.5 mg Ascorbic Acid (Vitamin C Tab*) 500 mg PO DAILY [facility] Last Admin: 02/25/17 10:18 Dose: 500 mg Finasteride (Proscar Tab*) 5 mg PO DAILY [facility] Last Admin: 02/25/17 10:18 Dose: 5 mg Furosemide (Lasix Iv*) 60 mg IV 0800,1200 [facility] Last Admin: 02/25/17 13:42 Dose: 60 mg Heparin Sodium (Porcine) (Heparin Vial(*)) 5,000 units SUBCUT Q8HR [facility] Last Admin: 02/25/17 13:44 Dose: 5,000 units Cefazolin Sodium/Dextrose (Kefzol 1 Gm In Dextrose Duplex (*)) 1 gm in 50 mls @ 200 mls/hr IVPB Q6H [facility] Last Admin: 02/25/17 10:07 Dose: 200 mls/hr Insulin Human Lispro (Humalog*) 0 units SUBCUT AC [facility] PRN Reason: Protocol Last Admin: 02/25/17 13:43 Dose: 5 units Insulin Human Lispro (Humalog*) 0 units SUBCUT ACHS [facility] PRN Reason: Protocol Last Admin: 02/25/17 13:43 Dose: 9 unit Lidocaine (Lidoderm 5% Patch*) 2 patch TRANSDERM DAILY [facility] Last Admin: 02/25/17 13:39 Dose: 2 patch Melatonin (Melatonin (Nf)) 3 mg PO BEDTIME PRN; Protocol PRN Reason: Sleep Multivitamins (Theragran Tab*) 1 tab PO DAILY [facility] Last Admin: 02/25/17 10:18 Dose: 1 tab Omeprazole (Prilosec Cap*) 20 mg PO DAILY@0600 [facility] Last Admin: 02/25/17 05:21 Dose: 20 mg Ondansetron HCl (Zofran Inj*) 4 mg IV Q6H PRN PRN Reason: NAUSEA Oxycodone/Acetaminophen (Percocet 5/325 Tab*) 2 tab PO Q6H PRN PRN Reason: PAIN Pharmacy Profile Note (Lidocaine Patch Remove*) 1 note PATCH OFF 2099 [facility] Potassium Chloride (Klor Con Er Tab*) 20 meq PO BID [facility] Last Admin: 02/25/17 10:18 Dose: 20 meq Pregabalin (Lyrica Cap(*)) 600 mg PO BID [facility] Last Admin: 02/25/17 10:17 Dose: 600 mg Tamsulosin HCl (Flomax Cap*) 0.4 mg PO DAILY [facility] Last Admin: 02/25/17 10:17 Dose: 0.4 mg Vitamin E (Vitamin E Cap*) 400 unit PO DAILY [facility] Last Admin: 02/25/17 10:17 Dose: 400 unit Vital Signs 02/25/17 02/25/17 02/25/17 11:30 11:33 11:40 Temperature 99.1 F Pulse Rate 79 Respiratory 21 20 11 Rate Blood Pressure 137/57 (mmHg) O2 Sat by Pulse 95 Oximetry Oxygen Devices in Use Now: - - Oxymask at 6 liters Appearance: Morbid obese male sitting up in recliner in [facility]. Eyes: No Scleral Icterus Ears/Nose/Mouth/Throat: Mucous Membranes Moist Neck: Trachea Midline Respiratory: Symmetrical Chest Expansion and Respiratory Effort, - - BS+ bilaterally with bibasilar crackles Cardiovascular: RRR - Normal S1 an S2 Abdominal: NL Sounds; No Tenderness; No Distention - obese Extremities: - - Bilateral LE Thiago wrapped, but edema has visibly gone down, including on his upper extremities Neurological: Alert and Oriented x 3, NL Muscle Strength and Tone Lines/Tubes/Other Access: Clean, Dry and Intact Peripheral IV Nutrition: Taking PO's Result Diagrams: 02/24/17 05:06 02/25/17 09:24 Assess/Plan/Problems-Billing Assessment: Mr. Ortiz is a 71yo M with PMH of morbid obesity, CAD, type 2 DM, obesity hypoventilation syndrome with chronic respiratory failure, diastolic CHF, VAMSI on CPAP, peripheral neuropathy, CKD stage 3, who presented to ED with c/o dyspnea, found to have acute diastolic CHF exacerbation. - Patient Problems (1) Acute diastolic CHF (congestive heart failure) Comment: - Suspect dietary non-compliance precipitated this episode. - Echo done 02/02 showed EF 50-55%. - Responding well to Furosemide. - Monitor daily weight, electrolytes, and renal function. - Dietary education. (2) Acute and chronic respiratory failure Comment: - Patient requires 2.5 liters on supplemental O2 at baseline, but now requiring 6 liters. - Seems to be doing better today - will try to titrate down. (3) Diabetes Comment: - Last A1c was 7.6 end of January. - Continue Lantus with Lispro SS. (4) HTN (hypertension) Comment: - Controlled. - Continue Amlodipine. (5) Diabetic neuropathy Comment: - Continue Lyrica. (6) Bilateral lower leg cellulitis Comment: - Combination of stasis dermatitis and infection. - Continue Cefazolin. (7) Anemia Comment: - Suspect anemia of renal disease. Iron is borderline low, but ferritin is normal. - Check erythropoietin. (8) Morbid obesity Comment: - Will refer to [facility]. (9) Physical deconditioning Comment: - Patient now requires a Samuel lift. - Will request PT/OT consults. - Will likely need rehab. (10) Low back pain Comment: - Muscular pain likely secondary to physical effort trying to transfer. - Lidoderm patch and Percocet for pain management. (11) Right shoulder pain Comment: - Had a fall >10 years ago with rotator cuff tear, but never had surgical repair. Suspect flare up now secondary to trying to put more wait on his UE to transfer to bed. - Lidoderm patch and pain management. (12) DVT prophylaxis Comment: - SQ heparin. (13) Full code status Status and Disposition: Inpatient. Daughter (Andra) called at [phone] and updated.
[2017-02-25] MEDS ORDERED: Lidocaine Patch REMOVE* 1 NOTE MISC PATCH OFF SCH (21:00)
[2017-02-25] MEDS: oxyCODONE/Acetamin 5/325 MG* TAB PO PRN (21:01)
[2017-02-26] MEDS: oxyCODONE/Acetamin 5/325 MG* TAB PO PRN ×3 (02:34→16:32)
[2017-02-26] MEDS: ceFAZolin 1 GM in Dextrose (*) 1 GM/50 ML BAG IVPB SCH ×4 (02:34→21:58)
[2017-02-26 05:35] LABS: BUN/Creatinine Ratio 19.3 (8-20); Calcium 8.9 mg/dL (8.6-10.3); EGFR Non-African American 52.1 (>60); Potassium 4.1 mmol/L (3.5-5.0)
[2017-02-26] MEDS: Heparin VIAL(*) 5000 UNITS/ML VIAL (FIVE THOUSAND) SUBCUT SCH ×3 (06:34→21:58)
[2017-02-26] MEDS: Omeprazole CAP* 20 MG PO SCH (06:35)
[2017-02-26] MEDS ORDERED: Furosemide IV* 10 MG/ML 10 ML VIAL (100 MG) IV SCH (08:00)
[2017-02-26] MEDS: Insulin LISPRO* 1 UNITS UNIT SUBCUT SCH ×7 (09:32→21:58)
[2017-02-26] MEDS: Insulin GLARGINE(*) 1 UNITS UNIT SUBCUT SCH (09:33)
[2017-02-26] MEDS: Vitamin THERAPEUTIC TAB PO SCH (09:40)
[2017-02-26] MEDS: Vitamin E CAP* 400 UNIT PO SCH (09:41)
[2017-02-26] MEDS: Lisinopril TAB* 5 MG PO SCH (09:41)
[2017-02-26] MEDS: amLODIPine TAB* 5 MG PO SCH (09:42)
[2017-02-26] MEDS: Ascorbic Acid TAB* 500 MG PO SCH (09:42)
[2017-02-26] MEDS: Potassium Chlor TAB* 20 MEQ TAB.ER PO SCH ×2 (09:43→21:56)
[2017-02-26] MEDS: Finasteride TAB* 5 MG PO SCH (09:45)
[2017-02-26] MEDS: Tamsulosin CAP* 0.4 MG PO SCH (09:45)
[2017-02-26] MEDS: Pregabalin CAP(*) 100 MG PO SCH ×2 (09:47→21:56)
[2017-02-26] MEDS ORDERED: Lidocaine Patch REMOVE* 1 NOTE MISC PATCH OFF ONE (11:00)
[2017-02-26] MEDS: Lidocaine PATCH 5%* 1 PATCH TRANSDERM SCH ×2 (14:26→21:57)
--- NOTE | 2017-02-26 17:34 | PN ---
Subjective Date of Service: 02/26/17 Interval History: HOSPITALIST PROGRESS NOTE Patient seen and examined at bedside. Offers no new complaints today. Family History: Unchanged from Admission Social History: Unchanged from Admission Past Medical History: Unchanged from Admission Objective Active Medications: Acetaminophen (Tylenol Tab*) 650 mg PO Q6H PRN PRN Reason: FEVER/PAIN Last Admin: 02/25/17 10:18 Dose: 650 mg Albuterol (Ventolin 2.5 Mg/3 Ml Neb.Milly*) 2.5 mg INH Q2H PRN PRN Reason: SOB/WHEEZING Amlodipine Besylate (Norvasc Tab*) 2.5 mg PO DAILY [facility] Last Admin: 02/26/17 09:42 Dose: 2.5 mg Ascorbic Acid (Vitamin C Tab*) 500 mg PO DAILY [facility] Last Admin: 02/26/17 09:42 Dose: 500 mg Finasteride (Proscar Tab*) 5 mg PO DAILY [facility] Last Admin: 02/26/17 09:45 Dose: 5 mg Furosemide (Lasix Iv*) 60 mg IV 0800 [facility] Last Admin: 02/26/17 09:35 Dose: 60 mg Heparin Sodium (Porcine) (Heparin Vial(*)) 5,000 units SUBCUT Q8HR [facility] Last Admin: 02/26/17 13:56 Dose: 5,000 units Cefazolin Sodium/Dextrose (Kefzol 1 Gm In Dextrose Duplex (*)) 1 gm in 50 mls @ 200 mls/hr IVPB Q6H [facility] Last Admin: 02/26/17 15:13 Dose: 200 mls/hr Insulin Glargine (Lantus(*)) 30 units SUBCUT Q24H [facility] Last Admin: 02/26/17 09:33 Dose: 30 units Insulin Human Lispro (Humalog*) 0 units SUBCUT ACHS [facility] PRN Reason: Protocol Last Admin: 02/26/17 12:32 Dose: 9 unit Insulin Human Lispro (Humalog*) 0 units SUBCUT 0730,1130,1630 [facility] PRN Reason: Protocol Last Admin: 02/26/17 13:56 Dose: 17 unit Lidocaine (Lidoderm 5% Patch*) 2 patch TRANSDERM 2100 [facility] Lisinopril (Prinivil Tab*) 2.5 mg PO DAILY [facility] Last Admin: 02/26/17 09:41 Dose: 2.5 mg Melatonin (Melatonin (Nf)) 3 mg PO BEDTIME PRN; Protocol PRN Reason: Sleep Multivitamins (Theragran Tab*) 1 tab PO DAILY [facility] Last Admin: 02/26/17 09:40 Dose: 1 tab Omeprazole (Prilosec Cap*) 20 mg PO DAILY@0600 [facility] Last Admin: 02/26/17 06:35 Dose: 20 mg Ondansetron HCl (Zofran Inj*) 4 mg IV Q6H PRN PRN Reason: NAUSEA Oxycodone/Acetaminophen (Percocet 5/325 Tab*) 2 tab PO Q6H PRN PRN Reason: PAIN Last Admin: 02/26/17 16:32 Dose: 2 tab Pharmacy Profile Note (Lidocaine Patch Remove*) 1 note PATCH OFF 0900 [facility] Potassium Chloride (Klor Con Er Tab*) 20 meq PO BID [facility] Last Admin: 02/26/17 09:43 Dose: 20 meq Pregabalin (Lyrica Cap(*)) 600 mg PO BID [facility] Last Admin: 02/26/17 09:47 Dose: 600 mg Tamsulosin HCl (Flomax Cap*) 0.4 mg PO DAILY [facility] Last Admin: 02/26/17 09:45 Dose: 0.4 mg Vitamin E (Vitamin E Cap*) 400 unit PO DAILY [facility] Last Admin: 02/26/17 09:41 Dose: 400 unit Vital Signs 02/26/17 02/26/17 02/26/17 15:29 15:30 15:40 Temperature 98.1 F Pulse Rate 69 Respiratory 18 14 20 Rate Blood Pressure 100/44 (mmHg) O2 Sat by Pulse 94 Oximetry Oxygen Devices in Use Now: - - Oxymask at 6 liters Appearance: Morbid obese male lying in bed in [facility]. Eyes: No Scleral Icterus Ears/Nose/Mouth/Throat: Mucous Membranes Moist Neck: Trachea Midline Respiratory: Symmetrical Chest Expansion and Respiratory Effort, - - BS+ bilaterally with bibasilar rales Cardiovascular: RRR - Normal S1 and S2 Abdominal: NL Sounds; No Tenderness; No Distention - obese Extremities: - - Severe edema of bilateral LE, AMALIA wrapped. Upper extremities edema is much improved. Neurological: Alert and Oriented x 3, NL Muscle Strength and Tone Lines/Tubes/Other Access: Clean, Dry and Intact [place], Clean, Dry and Intact Peripheral IV Nutrition: Taking PO's Result Diagrams: 02/24/17 05:06 02/26/17 05:09 Assess/Plan/Problems-Billing Assessment: Mr. Ortiz is a 71yo M with PMH of morbid obesity, CAD, type 2 DM, obesity hypoventilation syndrome with chronic respiratory failure, diastolic CHF, VAMSI on CPAP, peripheral neuropathy, CKD stage 3, who presented to ED with c/o dyspnea, found to have acute diastolic CHF exacerbation. - Patient Problems (1) Acute diastolic CHF (congestive heart failure) Comment: - Suspect dietary non-compliance precipitated this episode. - Echo done 02/02 showed EF 50-55%. - Responding well to Furosemide. - Monitor daily weight, electrolytes, and renal function. - Dietary education. (2) Acute and chronic respiratory failure Comment: - Patient requires 2.5 liters on supplemental O2 at baseline, but now requiring 6 liters. - Seems to be doing better today - will try to titrate down. (3) Diabetes Comment: - Last A1c was 7.6 end of January. - Continue Lantus with Lispro SS. (4) HTN (hypertension) Comment: - Controlled. - Continue Amlodipine. (5) Diabetic neuropathy Comment: - Continue Lyrica. (6) Bilateral lower leg cellulitis Comment: - Combination of stasis dermatitis and infection. - Continue Cefazolin #3. (7) Anemia Comment: - Suspect anemia of renal disease. Iron is borderline low, but ferritin is normal. - Erythropoietin is normal, but would expect a higher level with his anemia. (8) Morbid obesity Comment: - Will refer to [facility]. (9) Physical deconditioning Comment: - Patient now requires a Samuel lift. - Continue PT/OT. - Will need rehab. (10) Low back pain Comment: - Muscular pain likely secondary to physical effort trying to transfer. - Lidoderm patch and Percocet for pain management. (11) Right shoulder pain Comment: - Had a fall >10 years ago with rotator cuff tear, but never had surgical repair. Suspect flare up now secondary to trying to put more wait on his UE to transfer to bed. - Lidoderm patch and pain management. (12) DVT prophylaxis Comment: - SQ heparin. (13) Full code status Status and Disposition: Inpatient.
[2017-02-27] MEDS: oxyCODONE/Acetamin 5/325 MG* TAB PO PRN (00:27)
[2017-02-27] MEDS: ceFAZolin 1 GM in Dextrose (*) 1 GM/50 ML BAG IVPB SCH ×4 (00:57→17:06)
[2017-02-27 05:05] LABS: BUN/Creatinine Ratio 21.7 (8-20); Calcium 8.9 mg/dL (8.6-10.3); EGFR African American 56.3 (>60); EGFR Non-African American 43.8 (>60); Potassium 4.8 mmol/L (3.5-5.0)
[2017-02-27] MEDS: Omeprazole CAP* 20 MG PO SCH (05:38)
[2017-02-27] MEDS: Heparin VIAL(*) 5000 UNITS/ML VIAL (FIVE THOUSAND) SUBCUT SCH ×3 (05:38→20:44)
[2017-02-27] MEDS: Pregabalin CAP(*) 100 MG PO SCH ×2 (09:14→20:43)
[2017-02-27] MEDS: Vitamin E CAP* 400 UNIT PO SCH (09:14)
[2017-02-27] MEDS: Lisinopril TAB* 5 MG PO SCH (09:14)
[2017-02-27] MEDS: Insulin LISPRO* 1 UNITS UNIT SUBCUT SCH ×7 (09:15→20:44)
[2017-02-27] MEDS: Finasteride TAB* 5 MG PO SCH (09:15)
[2017-02-27] MEDS: Ascorbic Acid TAB* 500 MG PO SCH (09:15)
[2017-02-27] MEDS: Vitamin THERAPEUTIC TAB PO SCH (09:15)
[2017-02-27] MEDS: Tamsulosin CAP* 0.4 MG PO SCH (09:15)
[2017-02-27] MEDS: amLODIPine TAB* 5 MG PO SCH (09:15)
[2017-02-27] MEDS: Insulin GLARGINE(*) 1 UNITS UNIT SUBCUT SCH (09:16)
[2017-02-27 09:23] LABS: FIO2 6
[2017-02-27 09:39] LABS: PCO2 Arterial 75 mmHg (35-45)
[2017-02-27] MEDS: Lidocaine Patch REMOVE* 1 NOTE MISC PATCH OFF SCH (10:10)
[2017-02-27] MEDS ORDERED: Saline NASAL SPRAY 0.65%* BTL BOTH NARES PRN (15:33)
--- NOTE | 2017-02-27 15:53 | PN ---
Subjective Date of Service: 02/27/17 Interval History: HOSPITALIST PROGRESS NOTE Patient seen and examined at bedside. Initially this AM he was difficult to arouse, but around 11AM he was awake and alert, at his baseline. Denies dyspnea, CP, or palpitations. Did not sleep well last night due to body aches. Family History: Unchanged from Admission Social History: Unchanged from Admission Past Medical History: Unchanged from Admission Objective Active Medications: Acetaminophen (Tylenol Tab*) 650 mg PO Q6H PRN PRN Reason: FEVER/PAIN Last Admin: 02/25/17 10:18 Dose: 650 mg Albuterol (Ventolin 2.5 Mg/3 Ml Neb.Milly*) 2.5 mg INH Q2H PRN PRN Reason: SOB/WHEEZING Amlodipine Besylate (Norvasc Tab*) 2.5 mg PO DAILY [facility] Last Admin: 02/27/17 09:15 Dose: 2.5 mg Ascorbic Acid (Vitamin C Tab*) 500 mg PO DAILY [facility] Last Admin: 02/27/17 09:15 Dose: 500 mg Finasteride (Proscar Tab*) 5 mg PO DAILY [facility] Last Admin: 02/27/17 09:15 Dose: 5 mg Heparin Sodium (Porcine) (Heparin Vial(*)) 5,000 units SUBCUT Q8HR [facility] Last Admin: 02/27/17 14:47 Dose: 5,000 units Cefazolin Sodium/Dextrose (Kefzol 1 Gm In Dextrose Duplex (*)) 1 gm in 50 mls @ 200 mls/hr IVPB Q6HR [facility] Last Admin: 02/27/17 12:13 Dose: 200 mls/hr Insulin Glargine (Lantus(*)) 30 units SUBCUT Q24H [facility] Last Admin: 02/27/17 09:16 Dose: 30 units Insulin Human Lispro (Humalog*) 0 units SUBCUT ACHS [facility] PRN Reason: Protocol Last Admin: 02/27/17 12:48 Dose: 6 unit Insulin Human Lispro (Humalog*) 0 units SUBCUT 0730,1130,1630 [facility] PRN Reason: Protocol Last Admin: 02/27/17 12:49 Dose: 6 unit Lidocaine (Lidoderm 5% Patch*) 2 patch TRANSDERM 2100 [facility] Last Admin: 02/26/17 21:57 Dose: 2 patch Lisinopril (Prinivil Tab*) 2.5 mg PO DAILY [facility] Last Admin: 02/27/17 09:14 Dose: 2.5 mg Melatonin (Melatonin (Nf)) 3 mg PO BEDTIME PRN; Protocol PRN Reason: Sleep Multivitamins (Theragran Tab*) 1 tab PO DAILY [facility] Last Admin: 02/27/17 09:15 Dose: 1 tab Omeprazole (Prilosec Cap*) 20 mg PO DAILY@0600 [facility] Last Admin: 02/27/17 05:38 Dose: 20 mg Ondansetron HCl (Zofran Inj*) 4 mg IV Q6H PRN PRN Reason: NAUSEA Oxycodone/Acetaminophen (Percocet 5/325 Tab*) 2 tab PO Q6H PRN PRN Reason: PAIN Last Admin: 02/27/17 00:27 Dose: 2 tab Pharmacy Profile Note (Lidocaine Patch Remove*) 1 note PATCH OFF 0900 [facility] Last Admin: 02/27/17 10:10 Dose: 1 note Pregabalin (Lyrica Cap(*)) 600 mg PO BID [facility] Last Admin: 02/27/17 09:14 Dose: 600 mg Sodium Chloride (Sodium Chloride 0.65% Nasal [place]*) 1 spray BOTH NARES Q4H PRN PRN Reason: Congested nose Tamsulosin HCl (Flomax Cap*) 0.4 mg PO DAILY [facility] Last Admin: 02/27/17 09:15 Dose: 0.4 mg Vitamin E (Vitamin E Cap*) 400 unit PO DAILY [facility] Last Admin: 02/27/17 09:14 Dose: 400 unit Vital Signs 02/27/17 02/27/17 02/27/17 07:54 08:00 09:14 Temperature 98.7 F Pulse Rate 80 Respiratory 20 18 18 Rate Blood Pressure 139/57 (mmHg) O2 Sat by Pulse Oximetry Oxygen Devices in Use Now: - - Oxymask at 5 liters Appearance: Morbid obese male sitting up in recliner in [place]. Eyes: No Scleral Icterus Ears/Nose/Mouth/Throat: Mucous Membranes Moist Neck: Trachea Midline Respiratory: Symmetrical Chest Expansion and Respiratory Effort, - - BS+ bilaterally with bibasilar rales Cardiovascular: RRR - Normal S1 and S2 Abdominal: NL Sounds; No Tenderness; No Distention Extremities: - - UE edema is improved, LE edema is still severe, but improving. Neurological: Alert and Oriented x 3, NL Muscle Strength and Tone Nutrition: Taking PO's Result Diagrams: 02/24/17 05:06 02/27/17 04:40 Assess/Plan/Problems-Billing Assessment: Mr. Ortiz is a 71yo M with PMH of morbid obesity, CAD, type 2 DM, obesity hypoventilation syndrome with chronic respiratory failure, diastolic CHF, VAMSI on CPAP, peripheral neuropathy, CKD stage 3, who presented to ED with c/o dyspnea, found to have acute diastolic CHF exacerbation. - Patient Problems (1) Acute diastolic CHF (congestive heart failure) Comment: - Suspect dietary non-compliance precipitated this episode. - Echo done 02/02 showed EF 50-55%. - Responded well to Furosemide, but renal function is trending up - will hold diuretic today. - Monitor daily weight, electrolytes, and renal function. - Dietary education. (2) Acute and chronic respiratory failure Comment: - Secondary to obesity hypoventilation syndrome, worsened by CHF. - Patient requires 2.5 liters on supplemental O2 at baseline, and CPAP with same amount of O2 at home. - He's now on BiPAP with 10 liters O2 to maintain SO2 around 91% when he sleeps. - ABG shows compensated respiratory acidosis with chronic CO2 retention. - Will need PFTs to qualify for BiPAP as outpatient on discharge. - During the day he was wearing 6 liters of O2 - titrate to 5 liters and monitor. (3) Diabetes Comment: - Last A1c was 7.6 end of January. - Increase Lantus and continue Lispro SS. (4) HTN (hypertension) Comment: - Controlled. - Continue Amlodipine. (5) Diabetic neuropathy Comment: - Continue Lyrica. (6) Bilateral lower leg cellulitis Comment: - Combination of stasis dermatitis and infection. - Continue Cefazolin #4. (7) Anemia Comment: - Suspect anemia of renal disease. Iron is borderline low, but ferritin is normal. - Erythropoietin is normal, but would expect a higher level with his anemia. (8) Morbid obesity Comment: - Will refer to [facility]. (9) Physical deconditioning Comment: - Patient now requires a Samuel lift. - Continue PT/OT. - Will need rehab. (10) Low back pain Comment: - Muscular pain likely secondary to physical effort trying to transfer. - Lidoderm patch and Percocet for pain management. (11) Right shoulder pain Comment: - Had a fall >10 years ago with rotator cuff tear, but never had surgical repair. Suspect flare up now secondary to trying to put more wait on his UE to transfer to bed. - Lidoderm patch and pain management. (12) DVT prophylaxis Comment: - SQ heparin. (13) Full code status Status and Disposition: Inpatient. updated at bedside.
[2017-02-27] MEDS: Lidocaine PATCH 5%* 1 PATCH TRANSDERM SCH (19:14)
[2017-02-28] MEDS: ceFAZolin 1 GM in Dextrose (*) 1 GM/50 ML BAG IVPB SCH ×5 (00:05→23:37)
[2017-02-28] MEDS: Omeprazole CAP* 20 MG PO SCH (05:36)
[2017-02-28] MEDS: Heparin VIAL(*) 5000 UNITS/ML VIAL (FIVE THOUSAND) SUBCUT SCH ×3 (05:36→20:32)
[2017-02-28 05:48] LABS: Calcium 8.8 mg/dL (8.6-10.3); EGFR African American 60.3 (>60); EGFR Non-African American 46.9 (>60); Potassium 4.1 mmol/L (3.5-5.0)
[2017-02-28] MEDS ORDERED: Metolazone TAB* 5 MG PO ONE (08:30)
[2017-02-28] MEDS: Ascorbic Acid TAB* 500 MG PO SCH (09:00)
[2017-02-28] MEDS: Tamsulosin CAP* 0.4 MG PO SCH (09:00)
[2017-02-28] MEDS: Vitamin E CAP* 400 UNIT PO SCH (09:00)
[2017-02-28] MEDS ORDERED: Furosemide TAB* 20 MG PO ONE (09:00)
[2017-02-28] MEDS: Vitamin THERAPEUTIC TAB PO SCH (09:00)
[2017-02-28] MEDS: amLODIPine TAB* 5 MG PO SCH (09:00)
[2017-02-28] MEDS: Finasteride TAB* 5 MG PO SCH (09:00)
[2017-02-28] MEDS: Pregabalin CAP(*) 100 MG PO SCH ×2 (09:01→20:33)
[2017-02-28] MEDS: Lisinopril TAB* 5 MG PO SCH (09:01)
[2017-02-28] MEDS: Insulin GLARGINE(*) 1 UNITS UNIT SUBCUT SCH (09:02)
[2017-02-28] MEDS: Insulin LISPRO* 1 UNITS UNIT SUBCUT SCH ×7 (09:02→20:32)
[2017-02-28] MEDS: Lidocaine Patch REMOVE* 1 NOTE MISC PATCH OFF SCH (09:03)
--- NOTE | 2017-02-28 10:48 | PN ---
Subjective Date of Service: 02/28/17 Interval History: HOSPITALIST PROGRESS NOTE Patient seen and examined at bedside. Feels less dyspneic and breathing is getting closer to what it was at home. Denies CP or palpitations. Shoulder and back pain are still present, but less intense than before. Family History: Unchanged from Admission Social History: Unchanged from Admission Past Medical History: Unchanged from Admission Objective Active Medications: Acetaminophen (Tylenol Tab*) 650 mg PO Q6H PRN PRN Reason: FEVER/PAIN Last Admin: 02/25/17 10:18 Dose: 650 mg Albuterol (Ventolin 2.5 Mg/3 Ml Neb.Milly*) 2.5 mg INH Q2H PRN PRN Reason: SOB/WHEEZING Amlodipine Besylate (Norvasc Tab*) 2.5 mg PO DAILY [facility] Last Admin: 02/28/17 09:00 Dose: 2.5 mg Ascorbic Acid (Vitamin C Tab*) 500 mg PO DAILY [facility] Last Admin: 02/28/17 09:00 Dose: 500 mg Finasteride (Proscar Tab*) 5 mg PO DAILY [facility] Last Admin: 02/28/17 09:00 Dose: 5 mg Heparin Sodium (Porcine) (Heparin Vial(*)) 5,000 units SUBCUT Q8HR [facility] Last Admin: 02/28/17 05:36 Dose: 5,000 units Cefazolin Sodium/Dextrose (Kefzol 1 Gm In Dextrose Duplex (*)) 1 gm in 50 mls @ 200 mls/hr IVPB Q6HR [facility] Last Admin: 02/28/17 05:35 Dose: 200 mls/hr Insulin Glargine (Lantus(*)) 40 units SUBCUT Q24H [facility] Last Admin: 02/28/17 09:02 Dose: 40 units Insulin Human Lispro (Humalog*) 0 units SUBCUT ACHS [facility] PRN Reason: Protocol Last Admin: 02/28/17 09:02 Dose: 3 unit Insulin Human Lispro (Humalog*) 0 units SUBCUT 0730,1130,1630 [facility] PRN Reason: Protocol Last Admin: 02/28/17 09:03 Dose: 11 unit Lidocaine (Lidoderm 5% Patch*) 2 patch TRANSDERM 2100 [facility] Last Admin: 02/27/17 19:14 Dose: 2 patch Lisinopril (Prinivil Tab*) 2.5 mg PO DAILY [facility] Last Admin: 02/28/17 09:01 Dose: 2.5 mg Melatonin (Melatonin (Nf)) 3 mg PO BEDTIME PRN; Protocol PRN Reason: Sleep Multivitamins (Theragran Tab*) 1 tab PO DAILY [facility] Last Admin: 02/28/17 09:00 Dose: 1 tab Omeprazole (Prilosec Cap*) 20 mg PO DAILY@0600 [facility] Last Admin: 02/28/17 05:36 Dose: 20 mg Ondansetron HCl (Zofran Inj*) 4 mg IV Q6H PRN PRN Reason: NAUSEA Oxycodone/Acetaminophen (Percocet 5/325 Tab*) 1 tab PO Q6H PRN PRN Reason: PAIN Pharmacy Profile Note (Lidocaine Patch Remove*) 1 note PATCH OFF 0900 [facility] Last Admin: 02/28/17 09:03 Dose: 1 note Pregabalin (Lyrica Cap(*)) 600 mg PO BID [facility] Last Admin: 02/28/17 09:01 Dose: 600 mg Sodium Chloride (Sodium Chloride 0.65% Nasal [place]*) 1 spray BOTH NARES Q4H PRN PRN Reason: Congested nose Last Admin: 02/27/17 16:13 Dose: 1 spray Tamsulosin HCl (Flomax Cap*) 0.4 mg PO DAILY [facility] Last Admin: 02/28/17 09:00 Dose: 0.4 mg Vitamin E (Vitamin E Cap*) 400 unit PO DAILY [facility] Last Admin: 02/28/17 09:00 Dose: 400 unit Vital Signs 02/28/17 02/28/17 02/28/17 07:47 09:01 09:12 Temperature 98.3 F Pulse Rate 78 78 Respiratory 24 20 20 Rate Blood Pressure 142/60 (mmHg) O2 Sat by Pulse 94 94 Oximetry Oxygen Devices in Use Now: - - Oxymask at 4 liters Appearance: Morbid obese male sitting up in recliner in [facility]. Eyes: No Scleral Icterus Ears/Nose/Mouth/Throat: Mucous Membranes Moist Neck: Trachea Midline Respiratory: Symmetrical Chest Expansion and Respiratory Effort, - - BS+ bilaterally with bibasilar rales Cardiovascular: RRR - Normal S1 and S2 Abdominal: NL Sounds; No Tenderness; No Distention Extremities: - - UE edema much improved, LE edema still severe, but as per , close to his baseline Neurological: Alert and Oriented x 3, NL Muscle Strength and Tone Lines/Tubes/Other Access: Clean, Dry and Intact Peripheral IV Nutrition: Taking PO's Result Diagrams: 02/24/17 05:06 02/28/17 05:07 Assess/Plan/Problems-Billing Assessment: Mr. Ortiz is a 71yo M with PMH of morbid obesity, CAD, type 2 DM, obesity hypoventilation syndrome with chronic respiratory failure, diastolic CHF, VAMSI on CPAP, peripheral neuropathy, CKD stage 3, who presented to ED with c/o dyspnea, found to have acute diastolic CHF exacerbation. - Patient Problems (1) Acute diastolic CHF (congestive heart failure) Comment: - Suspect dietary non-compliance precipitated this episode. - Echo done 02/02 showed EF 50-55%. - Responded well to Furosemide IV, but renal function was trending up, probably back to his baseline of CKD stage 3 - will resume PO diuretic today. - Monitor daily weight, electrolytes, and renal function. - Dietary education. (2) Acute and chronic respiratory failure Comment: - Secondary to obesity hypoventilation syndrome, worsened by CHF. - Patient requires 2.5 liters on supplemental O2 at baseline, and CPAP with same amount of O2 at home. - He's now on BiPAP with 10 liters O2 to maintain SO2 around 91% when he sleeps. - ABG shows compensated respiratory acidosis with chronic CO2 retention. - Will need PFTs to qualify for BiPAP as outpatient on discharge. - During the day he was wearing 6 liters of O2 - titrate to 4 liters and monitor. (3) Diabetes Comment: - Last A1c was 7.6 end of January. - Continue Lantus and continue Lispro SS. (4) HTN (hypertension) Comment: - Controlled. - Continue Amlodipine. (5) Diabetic neuropathy Comment: - Continue Lyrica. (6) Bilateral lower leg cellulitis Comment: - Combination of stasis dermatitis and infection. - Continue Cefazolin #5. (7) Anemia Comment: - Suspect anemia of renal disease. Iron is borderline low, but ferritin is normal. - Erythropoietin is normal, but would expect a higher level with his anemia. (8) Morbid obesity Comment: - Will refer to [facility]. (9) Physical deconditioning Comment: - Patient now requires a Samuel lift. - Continue PT/OT. - Will need rehab. (10) Low back pain Comment: - Muscular pain likely secondary to physical effort trying to transfer. - Lidoderm patch and Percocet for pain management. (11) Right shoulder pain Comment: - Had a fall >10 years ago with rotator cuff tear, but never had surgical repair. Suspect flare up now secondary to trying to put more wait on his UE to transfer to bed. - Lidoderm patch and pain management. (12) DVT prophylaxis Comment: - SQ heparin. (13) Full code status Status and Disposition: Inpatient.
[2017-02-28] MEDS ORDERED: Furosemide IV* 10 MG/ML 10 ML VIAL (100 MG) IV ONE (13:43)
[2017-02-28] MEDS ORDERED: Nitroglycerin TAB 0.4 MG* 0.4 MG TAB SL PRN ×2 (14:25→14:40)
--- NOTE | 2017-02-28 14:34 | RAD ---
INDICATION: Dyspnea, congestive heart failure. COMPARISON: Comparison is made with a prior study from February 23, 2017. TECHNIQUE: A portable view of the chest was obtained. FINDINGS: The heart is moderately enlarged and unchanged from the prior exam. There is diffuse prominence of the interstitial markings which appears similar to the prior exam suggestive of congestive heart failure. IMPRESSION: FINDINGS SUGGESTIVE CONGESTIVE HEART FAILURE, UNCHANGED.
--- NOTE | 2017-02-28 14:41 | PN ---
Hospitalist Progress Note HOSPITALIST ADDENDUM Called by RN because patient was more dyspneic. Seen and examined at bedside. He c/o chest pressure and shortness of breath. VS: HR 80s RR 28 BP 152/67 SO2 90% on 6 liters. CVS: normal S1 and S2, RRR. Chest: BS+ bilaterally with more crackles. CxR: vascular congestion. EKG: NSR at 79bpm, no new ischemic changes. [place] a little better after Lasix 60mg IV, and SO2 up to 93%. A/P: acute pulmonary edema on top of CHF exacerbation. - SL NTG. - Check serial troponins. - If no further significant improvement, will transfer to ICU.
[2017-02-28] MEDS: Lidocaine PATCH 5%* 1 PATCH TRANSDERM SCH (20:33)
[2017-03-01 05:12] LABS: Hematocrit 26 % (42-52); Hemoglobin 8.4 g/dl (14.0-18.0); Mean Corpuscular HGB Conc 33 g/dl (31-36); Mean Corpuscular Hemoglobin 26 pg (27-31); Mean Corpuscular Volume 81 fL (80-94); Mean Platelet Volume 9 um3 (7.4-10.4); Red Blood Count 3.19 10^6/ul (4.0-5.4); Red Cell Distribution Width 16 % (10.5-15)
[2017-03-01 05:15] LABS: Add Diff/Slide Review? Slide Review Added; Comments Flag Yes
[2017-03-01] MEDS: ceFAZolin 1 GM in Dextrose (*) 1 GM/50 ML BAG IVPB SCH ×2 (05:20→11:18)
[2017-03-01] MEDS: Omeprazole CAP* 20 MG PO SCH (05:20)
[2017-03-01] MEDS: Heparin VIAL(*) 5000 UNITS/ML VIAL (FIVE THOUSAND) SUBCUT SCH ×3 (05:20→22:53)
[2017-03-01 05:25] LABS: BUN/Creatinine Ratio 26.7 (8-20); Calcium 9.1 mg/dL (8.6-10.3); EGFR African American 61.2 (>60); EGFR Non-African American 47.6 (>60); Potassium 4.3 mmol/L (3.5-5.0)
[2017-03-01] MEDS: Insulin LISPRO* 1 UNITS UNIT SUBCUT SCH ×7 (08:20→22:52)
[2017-03-01] MEDS: Finasteride TAB* 5 MG PO SCH (08:21)
[2017-03-01] MEDS: Ascorbic Acid TAB* 500 MG PO SCH (08:21)
[2017-03-01] MEDS: amLODIPine TAB* 5 MG PO SCH (08:22)
[2017-03-01] MEDS: Lisinopril TAB* 5 MG PO SCH (08:23)
[2017-03-01] MEDS: Vitamin THERAPEUTIC TAB PO SCH (08:23)
[2017-03-01] MEDS: Tamsulosin CAP* 0.4 MG PO SCH (08:23)
[2017-03-01] MEDS: Vitamin E CAP* 400 UNIT PO SCH (08:23)
[2017-03-01] MEDS: Pregabalin CAP(*) 100 MG PO SCH ×2 (08:25→22:54)
[2017-03-01] MEDS: Lidocaine Patch REMOVE* 1 NOTE MISC PATCH OFF SCH (08:27)
[2017-03-01] MEDS ORDERED: Metolazone TAB* 5 MG PO ONE (08:30)
[2017-03-01] MEDS ORDERED: Furosemide IV* 10 MG/ML 10 ML VIAL (100 MG) IV ONE (09:00)
[2017-03-01] MEDS: Insulin GLARGINE(*) 1 UNITS UNIT SUBCUT SCH (09:36)
[2017-03-01] MEDS: oxyCODONE/Acetamin 5/325 MG* TAB PO PRN ×2 (12:22→23:01)
--- NOTE | 2017-03-01 14:17 | PN ---
Subjective Date of Service: 03/01/17 Interval History: HOSPITALIST PROGRESS NOTE Patient seen and examined at bedside. He slept well last night. States his breathing is better today, but got very dyspneic while being Samuel lifted from bed to recliner. Denies chest pain or pressure. Family History: Unchanged from Admission Social History: Unchanged from Admission Past Medical History: Unchanged from Admission Objective Active Medications: Acetaminophen (Tylenol Tab*) 650 mg PO Q6H PRN PRN Reason: FEVER/PAIN Last Admin: 02/25/17 10:18 Dose: 650 mg Albuterol (Ventolin 2.5 Mg/3 Ml Neb.Milly*) 2.5 mg INH Q2H PRN PRN Reason: SOB/WHEEZING Amlodipine Besylate (Norvasc Tab*) 2.5 mg PO DAILY [facility] Last Admin: 03/01/17 08:22 Dose: 2.5 mg Ascorbic Acid (Vitamin C Tab*) 500 mg PO DAILY [facility] Last Admin: 03/01/17 08:21 Dose: 500 mg Finasteride (Proscar Tab*) 5 mg PO DAILY [facility] Last Admin: 03/01/17 08:21 Dose: 5 mg Heparin Sodium (Porcine) (Heparin Vial(*)) 5,000 units SUBCUT Q8HR [facility] Last Admin: 03/01/17 13:25 Dose: 5,000 units Cefazolin Sodium/Dextrose (Kefzol 1 Gm In Dextrose Duplex (*)) 1 gm in 50 mls @ 200 mls/hr IVPB Q6HR [facility] Last Admin: 03/01/17 11:18 Dose: 200 mls/hr Insulin Glargine (Lantus(*)) 40 units SUBCUT Q24H [facility] Last Admin: 03/01/17 09:36 Dose: 40 units Insulin Human Lispro (Humalog*) 0 units SUBCUT ACHS PAN PRN Reason: Protocol Last Admin: 03/01/17 11:35 Dose: 6 unit Insulin Human Lispro (Humalog*) 0 units SUBCUT 0730,1130,1630 PAN PRN Reason: Protocol Last Admin: 03/01/17 13:24 Dose: 11 unit Lidocaine (Lidoderm 5% Patch*) 2 patch TRANSDERM 2100 PAN Last Admin: 02/28/17 20:33 Dose: 2 patch Lisinopril (Prinivil Tab*) 2.5 mg PO DAILY [facility] Last Admin: 03/01/17 08:23 Dose: 2.5 mg Melatonin (Melatonin (Nf)) 3 mg PO BEDTIME PRN; Protocol PRN Reason: Sleep Multivitamins (Theragran Tab*) 1 tab PO DAILY [facility] Last Admin: 03/01/17 08:23 Dose: 1 tab Omeprazole (Prilosec Cap*) 20 mg PO DAILY@0600 [facility] Last Admin: 03/01/17 05:20 Dose: 20 mg Ondansetron HCl (Zofran Inj*) 4 mg IV Q6H PRN PRN Reason: NAUSEA Oxycodone/Acetaminophen (Percocet 5/325 Tab*) 1 tab PO Q6H PRN PRN Reason: PAIN Last Admin: 03/01/17 12:22 Dose: 1 tab Pharmacy Profile Note (Lidocaine Patch Remove*) 1 note PATCH OFF 0900 [facility] Last Admin: 03/01/17 08:27 Dose: 1 note Pregabalin (Lyrica Cap(*)) 600 mg PO BID [facility] Last Admin: 03/01/17 08:25 Dose: 600 mg Sodium Chloride (Sodium Chloride 0.65% Nasal [place]*) 1 spray BOTH NARES Q4H PRN PRN Reason: Congested nose Last Admin: 02/27/17 16:13 Dose: 1 spray Tamsulosin HCl (Flomax Cap*) 0.4 mg PO DAILY [facility] Last Admin: 03/01/17 08:23 Dose: 0.4 mg Vitamin E (Vitamin E Cap*) 400 unit PO DAILY [facility] Last Admin: 03/01/17 08:23 Dose: 400 unit Vital Signs 03/01/17 03/01/17 03/01/17 07:23 07:47 08:25 Temperature 99.2 F Pulse Rate 77 75 Respiratory 22 20 20 Rate Blood Pressure 136/63 (mmHg) O2 Sat by Pulse 93 94 Oximetry Oxygen Devices in Use Now: - - Oxymask at 5 liters Appearance: Morbid obese elderly male sitting up in a recliner in [facility]. Eyes: No Scleral Icterus Ears/Nose/Mouth/Throat: Mucous Membranes Moist Neck: Trachea Midline Respiratory: Symmetrical Chest Expansion and Respiratory Effort, - - BS+ bilaterally with bibasilar rales Cardiovascular: RRR - Normal S1 and S2 Abdominal: NL Sounds; No Tenderness; No Distention - obese Extremities: - - UE edema improved, LE edema close to baseline Neurological: Alert and Oriented x 3, NL Muscle Strength and Tone Lines/Tubes/Other Access: Clean, Dry and Intact Peripheral IV Nutrition: Taking PO's Result Diagrams: 03/01/17 04:48 03/01/17 04:48 Assess/Plan/Problems-Billing Assessment: Mr. Ortiz is a 71yo M with PMH of morbid obesity, CAD, type 2 DM, obesity hypoventilation syndrome with chronic respiratory failure, diastolic CHF, VAMSI on CPAP, peripheral neuropathy, CKD stage 3, who presented to ED with c/o dyspnea, found to have acute diastolic CHF exacerbation. - Patient Problems (1) Acute diastolic CHF (congestive heart failure) Comment: - Suspect dietary non-compliance precipitated this episode. - Echo done 02/02 showed EF 50-55%. - Diuretics were held for one day and patient developed acute pulmonary edema. Will continue Metolazone/Furosemide and continue to monitor. - Monitor daily weight, electrolytes, and renal function. - Dietary education. (2) Acute and chronic respiratory failure Comment: - Secondary to obesity hypoventilation syndrome, worsened by CHF. - Patient required 2.5 liters on supplemental O2 at baseline, and further review shows he was already on BiPAP at home. - Here in the hospital he's on BiPAP 20/13 with 10 liters O2 to maintain SO2 around 91% when he sleeps and even with this high pressure he still snores and sometimes desaturates. D/w Dr. Lazaro - she recomends AVAPS for his obesity hypoventilation syndrome. CM to assist with set up. - ABG shows compensated respiratory acidosis with chronic CO2 retention. - Will need PFTs to qualify for BiPAP as outpatient on discharge. - During the day he was wearing 6 liters of O2 - titrate to 4 liters and monitor. (3) Diabetes Comment: - Last A1c was 7.6 end of January. - Continue Lantus and continue Lispro SS. (4) HTN (hypertension) Comment: - Controlled. - Continue Amlodipine. (5) Diabetic neuropathy Comment: - Continue Lyrica. (6) Bilateral lower leg cellulitis Comment: - Combination of stasis dermatitis and infection. - Will d/c Cefazolin and start Cephalexin to complete 2 more days. (7) Anemia Comment: - Suspect anemia of renal disease. Iron is borderline low, but ferritin is normal. - Erythropoietin is normal, but would expect a higher level with his anemia. (8) Morbid obesity Comment: - Will refer to [facility]. (9) Physical deconditioning Comment: - Patient now requires a Samuel lift. - Continue PT/OT. - Will need rehab. (10) Low back pain Comment: - Muscular pain likely secondary to physical effort trying to transfer. - Lidoderm patch and Percocet for pain management. (11) Right shoulder pain Comment: - Had a fall >10 years ago with rotator cuff tear, but never had surgical repair. Suspect flare up now secondary to trying to put more wait on his UE to transfer to bed. - Lidoderm patch and pain management. (12) DVT prophylaxis Comment: - SQ heparin. (13) Full code status Status and Disposition: Inpatient.
[2017-03-01] MEDS: Cephalexin CAP* 500 MG PO SCH ×2 (17:00→22:54)
[2017-03-01] MEDS: Lidocaine PATCH 5%* 1 PATCH TRANSDERM SCH (22:57)
[2017-03-02 05:48] LABS: BUN/Creatinine Ratio 33.6 (8-20); Calcium 8.9 mg/dL (8.6-10.3); EGFR African American 69.4 (>60); EGFR Non-African American 53.9 (>60); Potassium 4.1 mmol/L (3.5-5.0)
[2017-03-02] MEDS: Heparin VIAL(*) 5000 UNITS/ML VIAL (FIVE THOUSAND) SUBCUT SCH ×3 (06:19→21:27)
[2017-03-02] MEDS: Omeprazole CAP* 20 MG PO SCH (06:19)
[2017-03-02] MEDS: oxyCODONE/Acetamin 5/325 MG* TAB PO PRN (06:19)
[2017-03-02] MEDS: Tamsulosin CAP* 0.4 MG PO SCH (07:59)
[2017-03-02] MEDS: amLODIPine TAB* 5 MG PO SCH (07:59)
[2017-03-02] MEDS: Lisinopril TAB* 5 MG PO SCH (08:00)
[2017-03-02] MEDS: Ascorbic Acid TAB* 500 MG PO SCH (08:00)
[2017-03-02] MEDS: Cephalexin CAP* 500 MG PO SCH (08:00)
[2017-03-02] MEDS: Vitamin E CAP* 400 UNIT PO SCH (08:00)
[2017-03-02] MEDS: Pregabalin CAP(*) 100 MG PO SCH ×2 (08:01→21:29)
[2017-03-02] MEDS: Finasteride TAB* 5 MG PO SCH (08:01)
[2017-03-02] MEDS: Vitamin THERAPEUTIC TAB PO SCH (08:01)
[2017-03-02] MEDS: Insulin LISPRO* 1 UNITS UNIT SUBCUT SCH ×7 (08:03→21:27)
[2017-03-02] MEDS: Lidocaine Patch REMOVE* 1 NOTE MISC PATCH OFF SCH (08:04)
[2017-03-02] MEDS ORDERED: Metolazone TAB* 5 MG PO ONE (08:30)
[2017-03-02 08:39] LABS: Hematocrit 26 % (42-52); Hemoglobin 8.3 g/dl (14.0-18.0); Mean Corpuscular HGB Conc 31 g/dl (31-36); Mean Corpuscular Hemoglobin 26 pg (27-31); Mean Corpuscular Volume 82 fL (80-94); Mean Platelet Volume 9 um3 (7.4-10.4); Red Blood Count 3.21 10^6/ul (4.0-5.4); Red Cell Distribution Width 16 % (10.5-15); White Blood Count 14.5 10^3/ul (3.5-10.8)
[2017-03-02] MEDS: Insulin GLARGINE(*) 1 UNITS UNIT SUBCUT SCH (08:52)
[2017-03-02 08:58] LABS: BUN/Creatinine Ratio 34.6 (8-20); Calcium 9.2 mg/dL (8.6-10.3); EGFR African American 71.9 (>60); EGFR Non-African American 55.9 (>60); Potassium 4.1 mmol/L (3.5-5.0)
[2017-03-02] MEDS ORDERED: Furosemide IV* 10 MG/ML 10 ML VIAL (100 MG) IV ONE (09:00)
[2017-03-02 09:11] LABS: Add Diff/Slide Review? Slide Review Added; Comments Flag Yes
--- NOTE | 2017-03-02 14:33 | PN ---
Subjective Date of Service: 03/02/17 Interval History: HOSPITALIST PROGRESS NOTE Patient seen and examined at bedside. He offers no new complaints. Dyspnea is close to baseline and he had no further episodes of chest pressure. Pain is controlled. Family History: Unchanged from Admission Social History: Unchanged from Admission Past Medical History: Unchanged from Admission Objective Active Medications: Acetaminophen (Tylenol Tab*) 650 mg PO Q6H PRN PRN Reason: FEVER/PAIN Last Admin: 02/25/17 10:18 Dose: 650 mg Albuterol (Ventolin 2.5 Mg/3 Ml Neb.Milly*) 2.5 mg INH Q2H PRN PRN Reason: SOB/WHEEZING Amlodipine Besylate (Norvasc Tab*) 2.5 mg PO DAILY [facility] Last Admin: 03/02/17 07:59 Dose: 2.5 mg Ascorbic Acid (Vitamin C Tab*) 500 mg PO DAILY [facility] Last Admin: 03/02/17 08:00 Dose: 500 mg Finasteride (Proscar Tab*) 5 mg PO DAILY [facility] Last Admin: 03/02/17 08:01 Dose: 5 mg Heparin Sodium (Porcine) (Heparin Vial(*)) 5,000 units SUBCUT Q8HR [facility] Last Admin: 03/02/17 12:58 Dose: 5,000 units Insulin Glargine (Lantus(*)) 45 units SUBCUT Q24H [facility] Insulin Human Lispro (Humalog*) 0 units SUBCUT ACHS PAN PRN Reason: Protocol Last Admin: 03/02/17 11:35 Dose: 6 unit Insulin Human Lispro (Humalog*) 0 units SUBCUT 0730,1130,1630 PAN PRN Reason: Protocol Last Admin: 03/02/17 12:58 Dose: 11 unit Lidocaine (Lidoderm 5% Patch*) 2 patch TRANSDERM 2100 [facility] Last Admin: 03/01/17 22:57 Dose: 2 patch Lisinopril (Prinivil Tab*) 2.5 mg PO DAILY [facility] Last Admin: 03/02/17 08:00 Dose: 2.5 mg Melatonin (Melatonin (Nf)) 3 mg PO BEDTIME PRN; Protocol PRN Reason: Sleep Multivitamins (Theragran Tab*) 1 tab PO DAILY [facility] Last Admin: 03/02/17 08:01 Dose: 1 tab Omeprazole (Prilosec Cap*) 20 mg PO DAILY@0600 [facility] Last Admin: 03/02/17 06:19 Dose: 20 mg Ondansetron HCl (Zofran Inj*) 4 mg IV Q6H PRN PRN Reason: NAUSEA Oxycodone/Acetaminophen (Percocet 5/325 Tab*) 1 tab PO Q6H PRN PRN Reason: PAIN Last Admin: 03/02/17 06:19 Dose: 1 tab Pharmacy Profile Note (Lidocaine Patch Remove*) 1 note PATCH OFF 0900 [facility] Last Admin: 03/02/17 08:04 Dose: 1 note Pregabalin (Lyrica Cap(*)) 600 mg PO BID [facility] Last Admin: 03/02/17 08:01 Dose: 600 mg Sodium Chloride (Sodium Chloride 0.65% Nasal [place]*) 1 spray BOTH NARES Q4H PRN PRN Reason: Congested nose Last Admin: 02/27/17 16:13 Dose: 1 spray Tamsulosin HCl (Flomax Cap*) 0.4 mg PO DAILY [facility] Last Admin: 03/02/17 07:59 Dose: 0.4 mg Vitamin E (Vitamin E Cap*) 400 unit PO DAILY [facility] Last Admin: 03/02/17 08:00 Dose: 400 unit Vital Signs 03/02/17 03/02/17 10:01 11:19 Temperature 98.3 F Pulse Rate 64 Respiratory 22 20 Rate Blood Pressure 160/54 (mmHg) O2 Sat by Pulse 96 Oximetry Oxygen Devices in Use Now: - - Oxymask at 5 liters Appearance: Morbid obese male lying in bed in [facility]. Eyes: No Scleral Icterus Ears/Nose/Mouth/Throat: Mucous Membranes Moist Neck: Trachea Midline Respiratory: Symmetrical Chest Expansion and Respiratory Effort, - - BS+ bilaterally with bibasilar rales Cardiovascular: RRR - Normal S1 and S2 Abdominal: NL Sounds; No Tenderness; No Distention - obese Extremities: - - Bilateral LE edema still present, but much improved, both legs are Thiago wrapped Neurological: Alert and Oriented x 3, NL Muscle Strength and Tone Lines/Tubes/Other Access: Clean, Dry and Intact Peripheral IV Nutrition: Taking PO's Result Diagrams: 03/02/17 08:22 03/02/17 08:22 Assess/Plan/Problems-Billing Assessment: Mr. Ortiz is a 71yo M with PMH of morbid obesity, CAD, type 2 DM, obesity hypoventilation syndrome with chronic respiratory failure, diastolic CHF, VAMSI on CPAP, peripheral neuropathy, CKD stage 3, who presented to ED with c/o dyspnea, found to have acute diastolic CHF exacerbation. - Patient Problems (1) Fever Comment: - Tmax 100.6 last night but not clear source. Concern for possible infection with his leukocytosis. - Could be drug fever secondary to cephalosporin - will d/c. - Panculture and continue to monitor. - CxR showed no new infiltrates. (2) Acute diastolic CHF (congestive heart failure) Comment: - Suspect dietary non-compliance precipitated this episode. - Echo done 02/02 showed EF 50-55%. - Diuretics were held for one day and patient developed acute pulmonary edema. Will continue Metolazone/Furosemide and monitor. - Weight is down to 419lbs and renal function is stable. - Dietary education. (3) Acute and chronic respiratory failure Comment: - Secondary to obesity hypoventilation syndrome, worsened by CHF. - Patient required 2.5 liters on supplemental O2 at baseline, and further review shows he was already on BiPAP at home. - Here in the hospital he's on BiPAP / with 10 liters O2 to maintain SO2 around 91% when he sleeps and even with this high pressure he still snores and sometimes desaturates. D/w Dr. Lazaro - she recomends AVAPS for his obesity hypoventilation syndrome. CM to assist with set up. - ABG shows compensated respiratory acidosis with chronic CO2 retention. - Wearing 5 liters of O2 during the day. (4) Obesity hypoventilation syndrome Comment: - Case d/w Dr. Lazaro - patient requires noninvasive ventilator due to acute on chronic obesity hypoventilation syndrome. BiPAP has been considered but did not offer the best mode of therapy. The Trilogy offers the AVAP-AE mode which will target his tidal volume based on his ideal body weight. The auto- EPAP will effectively treat his apneas and provide him with more comfortable pressures than CPAP (that he could not tolerate in the past). The Trilogy offers 6 hours of battery life and can be used in the event of a power outage as patient is at risk for a life threatening event. It will provide the pulmonary support he needs to improve his quality of life and reduce hospitalizations. COPD does not contribute to his hypercapnea. (5) Diabetes Comment: - Last A1c was 7.6 end of January. - Increase Lantus and continue Lispro SS. (6) HTN (hypertension) Comment: - Trending up. - Increase Amlodipine. (7) Diabetic neuropathy Comment: - Continue Lyrica. (8) Bilateral lower leg cellulitis Comment: - Combination of stasis dermatitis and infection. - D/c Cefazolin. (9) Anemia Comment: - Suspect anemia of renal disease. Iron is borderline low, but ferritin is normal. - Erythropoietin is normal, but would expect a higher level with his anemia. (10) Morbid obesity Comment: - Will refer to [facility]. (11) Physical deconditioning Comment: - Patient now requires a Samuel lift. - Continue PT/OT. - Will need rehab. (12) Low back pain Comment: - Muscular pain likely secondary to physical effort trying to transfer. - Lidoderm patch and Percocet for pain management. (13) Right shoulder pain Comment: - Had a fall >10 years ago with rotator cuff tear, but never had surgical repair. Suspect flare up now secondary to trying to put more wait on his UE to transfer to bed. - Lidoderm patch and pain management. (14) DVT prophylaxis Comment: - SQ heparin. (15) Full code status Status and Disposition: Inpatient. Plan to d/c to SNF for rehab when stable.
[2017-03-02] MEDS ORDERED: amLODIPine TAB* 5 MG PO ONE (14:41)
[2017-03-02 18:59] LABS: Urine Bilirubin Negative (Negative); Urine Glucose Negative (Negative); Urine Nitrite Negative (Negative)
[2017-03-02] MEDS: Lidocaine PATCH 5%* 1 PATCH TRANSDERM SCH (21:29)
[2017-03-03] MEDS: Acetaminophen TAB* 325 MG PO PRN (03:49)
[2017-03-03] MEDS: Heparin VIAL(*) 5000 UNITS/ML VIAL (FIVE THOUSAND) SUBCUT SCH ×3 (05:26→21:20)
[2017-03-03] MEDS: Omeprazole CAP* 20 MG PO SCH (05:26)
[2017-03-03 05:32] LABS: BUN/Creatinine Ratio 36.9 (8-20); Calcium 9.2 mg/dL (8.6-10.3); EGFR Non-African American 54.4 (>60); Potassium 4.1 mmol/L (3.5-5.0)
[2017-03-03] MEDS ORDERED: Metolazone TAB* 5 MG PO ONE (08:30)
[2017-03-03] MEDS ORDERED: Furosemide IV* 10 MG/ML 10 ML VIAL (100 MG) IV ONE (09:00)
[2017-03-03] MEDS: Finasteride TAB* 5 MG PO SCH (09:02)
[2017-03-03] MEDS: Lisinopril TAB* 5 MG PO SCH (09:02)
[2017-03-03] MEDS: Vitamin THERAPEUTIC TAB PO SCH (09:02)
[2017-03-03] MEDS: Vitamin E CAP* 400 UNIT PO SCH (09:02)
[2017-03-03] MEDS: Ascorbic Acid TAB* 500 MG PO SCH (09:02)
[2017-03-03] MEDS: Tamsulosin CAP* 0.4 MG PO SCH (09:03)
[2017-03-03] MEDS: Pregabalin CAP(*) 100 MG PO SCH ×2 (09:03→21:21)
[2017-03-03] MEDS: amLODIPine TAB* 5 MG PO SCH (09:05)
[2017-03-03] MEDS: Insulin LISPRO* 1 UNITS UNIT SUBCUT SCH ×7 (09:06→21:21)
[2017-03-03] MEDS: Insulin GLARGINE(*) 1 UNITS UNIT SUBCUT SCH (09:06)
[2017-03-03] MEDS: Lidocaine Patch REMOVE* 1 NOTE MISC PATCH OFF SCH (09:10)
--- NOTE | 2017-03-03 14:33 | PN ---
Subjective Date of Service: 03/03/17 Interval History: HOSPITALIST PROGRESS NOTE Patient seen and examined at bedside. He offers no complaints at this time. Desaturated to 84% last night even on high pressure BiPAP with 10 liters of O2. Feels weak. Family History: Unchanged from Admission Social History: Unchanged from Admission Past Medical History: Unchanged from Admission Objective Active Medications: Acetaminophen (Tylenol Tab*) 650 mg PO Q6H PRN PRN Reason: FEVER/PAIN Last Admin: 03/03/17 03:49 Dose: 650 mg Albuterol (Ventolin 2.5 Mg/3 Ml Neb.Milly*) 2.5 mg INH Q2H PRN PRN Reason: SOB/WHEEZING Amlodipine Besylate (Norvasc Tab*) 5 mg PO DAILY [facility] Last Admin: 03/03/17 09:05 Dose: 5 mg Ascorbic Acid (Vitamin C Tab*) 500 mg PO DAILY [facility] Last Admin: 03/03/17 09:02 Dose: 500 mg Finasteride (Proscar Tab*) 5 mg PO DAILY [facility] Last Admin: 03/03/17 09:02 Dose: 5 mg Heparin Sodium (Porcine) (Heparin Vial(*)) 5,000 units SUBCUT Q8HR [facility] Last Admin: 03/03/17 13:22 Dose: 5,000 units Insulin Glargine (Lantus(*)) 45 units SUBCUT Q24H [facility] Last Admin: 03/03/17 09:06 Dose: 45 unit Insulin Human Lispro (Humalog*) 0 units SUBCUT ACHS [facility] PRN Reason: Protocol Last Admin: 03/03/17 13:22 Dose: 6 unit Insulin Human Lispro (Humalog*) 0 units SUBCUT 0730,1130,1630 PAN PRN Reason: Protocol Last Admin: 03/03/17 13:21 Dose: 12 unit Lidocaine (Lidoderm 5% Patch*) 2 patch TRANSDERM 2100 [facility] Last Admin: 03/02/17 21:29 Dose: 2 patch Lisinopril (Prinivil Tab*) 2.5 mg PO DAILY [facility] Last Admin: 03/03/17 09:02 Dose: 2.5 mg Melatonin (Melatonin (Nf)) 3 mg PO BEDTIME PRN; Protocol PRN Reason: Sleep Multivitamins (Theragran Tab*) 1 tab PO DAILY [facility] Last Admin: 03/03/17 09:02 Dose: 1 tab Omeprazole (Prilosec Cap*) 20 mg PO DAILY@0600 [facility] Last Admin: 03/03/17 05:26 Dose: 20 mg Ondansetron HCl (Zofran Inj*) 4 mg IV Q6H PRN PRN Reason: NAUSEA Oxycodone/Acetaminophen (Percocet 5/325 Tab*) 1 tab PO Q6H PRN PRN Reason: PAIN Last Admin: 03/02/17 06:19 Dose: 1 tab Pharmacy Profile Note (Lidocaine Patch Remove*) 1 note PATCH OFF 09 [facility] Last Admin: 03/03/17 09:10 Dose: 1 note Pregabalin (Lyrica Cap(*)) 600 mg PO BID [facility] Last Admin: 03/03/17 09:03 Dose: 600 mg Sodium Chloride (Sodium Chloride 0.65% Nasal [place]*) 1 spray BOTH NARES Q4H PRN PRN Reason: Congested nose Last Admin: 02/27/17 16:13 Dose: 1 spray Tamsulosin HCl (Flomax Cap*) 0.4 mg PO DAILY [facility] Last Admin: 03/03/17 09:03 Dose: 0.4 mg Vitamin E (Vitamin E Cap*) 400 unit PO DAILY [facility] Last Admin: 03/03/17 09:02 Dose: 400 unit Vital Signs 03/03/17 03/03/17 03/03/17 02:33 03:10 03:48 Temperature 99.8 F 100.0 F Pulse Rate 90 76 Respiratory 20 24 Rate Blood Pressure 145/60 (mmHg) O2 Sat by Pulse 92 97 Oximetry Oxygen Devices in Use Now: - - Oxymask at 5 liters Appearance: Morbid obese male lying in bed in [facility]. Eyes: No Scleral Icterus Ears/Nose/Mouth/Throat: Mucous Membranes Moist Neck: Trachea Midline Respiratory: Symmetrical Chest Expansion and Respiratory Effort, - - BS+ bilaterally with bibasilar rales Cardiovascular: RRR - Normal S1 and S2 Abdominal: NL Sounds; No Tenderness; No Distention - obese Extremities: - - Bilateral LE edema still present, but much improved compared to admission. Neurological: Alert and Oriented x 3, - - SIERRA, power 4/5 UE, 3/5 LE Nutrition: Taking PO's Result Diagrams: 03/02/17 08:22 03/03/17 04:53 Assess/Plan/Problems-Billing Assessment: Mr. Ortiz is a 71yo M with PMH of morbid obesity, CAD, type 2 DM, obesity hypoventilation syndrome with chronic respiratory failure, diastolic CHF, VAMSI on CPAP, peripheral neuropathy, CKD stage 3, who presented to ED with c/o dyspnea, found to have acute diastolic CHF exacerbation. - Patient Problems (1) Fever Comment: - Tmax 100.6 last night but not clear source. Concern for possible infection with his leukocytosis. - Could be drug fever secondary to cephalosporin - discontinued. - Cultures show no growth so far. - CxR showed no new infiltrates. - Remains afebrile today. (2) Acute diastolic CHF (congestive heart failure) Comment: - Suspect dietary non-compliance precipitated this episode. - Echo done 02/02 showed EF 50-55%. - Diuretics were held for one day and patient developed acute pulmonary edema. Will continue Metolazone/Furosemide and monitor. - Weight is down to 402lbs and renal function is stable. - Dietary education. (3) Acute and chronic respiratory failure Comment: - Secondary to obesity hypoventilation syndrome, worsened by CHF. - Patient required 2.5 liters on supplemental O2 at baseline, and further review shows he was already on BiPAP at home. - Here in the hospital he's on BiPAP / with 10 liters O2 to maintain SO2 around 91% when he sleeps and even with this high pressure he still snores and sometimes desaturates. D/w Dr. Lazaro - she recomends AVAPS for his obesity hypoventilation syndrome. CM to assist with set up. - ABG shows compensated respiratory acidosis with chronic CO2 retention. - Wearing 5 liters of O2 during the day. (4) Obesity hypoventilation syndrome Comment: - Case d/w Dr. Lazaro - patient requires noninvasive ventilator due to acute on chronic obesity hypoventilation syndrome. BiPAP has been considered but did not offer the best mode of therapy. The Trilogy offers the AVAP-AE mode which will target his tidal volume based on his ideal body weight. The auto- EPAP will effectively treat his apneas and provide him with more comfortable pressures than CPAP (that he could not tolerate in the past). The Trilogy offers 6 hours of battery life and can be used in the event of a power outage as patient is at risk for a life threatening event. It will provide the pulmonary support he needs to improve his quality of life and reduce hospitalizations. COPD does not contribute to his hypercapnea. (5) Diabetes Comment: - Last A1c was 7.6 end of January. - Continue Lantus and Lispro SS. (6) HTN (hypertension) Comment: - Continue Amlodipine. (7) Diabetic neuropathy Comment: - Continue Lyrica. (8) Bilateral lower leg cellulitis Comment: - Combination of stasis dermatitis and infection. - D/c Cefazolin. (9) Anemia Comment: - Suspect anemia of renal disease. Iron is borderline low, but ferritin is normal. - Erythropoietin is normal, but would expect a higher level with his anemia. (10) Morbid obesity Comment: - Will refer to [facility] on discharge. (11) Physical deconditioning Comment: - Patient now requires a Samuel lift. - No focal deficits, just appears to be very deconditioned. - Continue PT/OT. - Plan for placement at [facility] for rehab. (12) Low back pain Comment: - Muscular pain likely secondary to physical effort trying to transfer. - Lidoderm patch and Percocet for pain management. (13) Right shoulder pain Comment: - Had a fall >10 years ago with rotator cuff tear, but never had surgical repair. Suspect flare up now secondary to trying to put more wait on his UE to transfer to bed. - Lidoderm patch and pain management. (14) DVT prophylaxis Comment: - SQ heparin. (15) Full code status Status and Disposition: Inpatient. Plan to d/c to SNF for rehab when stable.
[2017-03-03] MEDS: oxyCODONE/Acetamin 5/325 MG* TAB PO PRN (17:51)
[2017-03-03] MEDS: Lidocaine PATCH 5%* 1 PATCH TRANSDERM SCH (21:22)
[2017-03-04] MEDS: oxyCODONE/Acetamin 5/325 MG* TAB PO PRN ×3 (02:10→22:31)
[2017-03-04] MEDS: Heparin VIAL(*) 5000 UNITS/ML VIAL (FIVE THOUSAND) SUBCUT SCH ×3 (05:04→22:32)
[2017-03-04] MEDS: Omeprazole CAP* 20 MG PO SCH (05:05)
[2017-03-04] MEDS: amLODIPine TAB* 5 MG PO SCH (09:02)
[2017-03-04] MEDS: Tamsulosin CAP* 0.4 MG PO SCH (09:02)
[2017-03-04] MEDS: Lisinopril TAB* 5 MG PO SCH (09:02)
[2017-03-04] MEDS: Vitamin THERAPEUTIC TAB PO SCH (09:02)
[2017-03-04] MEDS: Vitamin E CAP* 400 UNIT PO SCH (09:04)
[2017-03-04] MEDS: Insulin LISPRO* 1 UNITS UNIT SUBCUT SCH ×7 (09:06→22:32)
[2017-03-04] MEDS: Insulin GLARGINE(*) 1 UNITS UNIT SUBCUT SCH (09:08)
[2017-03-04] MEDS: Furosemide TAB* 40 MG PO SCH (09:09)
[2017-03-04] MEDS: Finasteride TAB* 5 MG PO SCH (09:09)
[2017-03-04] MEDS: Ascorbic Acid TAB* 500 MG PO SCH (09:09)
[2017-03-04] MEDS: Pregabalin CAP(*) 100 MG PO SCH ×2 (09:11→22:31)
[2017-03-04] MEDS: Lidocaine Patch REMOVE* 1 NOTE MISC PATCH OFF SCH (09:13)
[2017-03-04] MEDS ORDERED: Furosemide IV* 10 MG/ML VIAL (40 MG) IV ONE (14:36)
--- NOTE | 2017-03-04 15:29 | PN ---
Subjective Date of Service: 03/04/17 Interval History: Pt stated that he feels "fine" and drifted off to sleep. Plans to use Trilogy at home. Family History: Unchanged from Admission Social History: Unchanged from Admission Past Medical History: Unchanged from Admission Objective Active Medications: Acetaminophen (Tylenol Tab*) 650 mg PO Q6H PRN PRN Reason: FEVER/PAIN Last Admin: 03/03/17 03:49 Dose: 650 mg Albuterol (Ventolin 2.5 Mg/3 Ml Neb.Milly*) 2.5 mg INH Q2H PRN PRN Reason: SOB/WHEEZING Amlodipine Besylate (Norvasc Tab*) 5 mg PO DAILY [facility] Last Admin: 03/04/17 09:02 Dose: 5 mg Ascorbic Acid (Vitamin C Tab*) 500 mg PO DAILY [facility] Last Admin: 03/04/17 09:09 Dose: 500 mg Finasteride (Proscar Tab*) 5 mg PO DAILY [facility] Last Admin: 03/04/17 09:09 Dose: 5 mg Furosemide (Lasix Tab*) 80 mg PO DAILY [facility] Last Admin: 03/04/17 09:09 Dose: 80 mg Heparin Sodium (Porcine) (Heparin Vial(*)) 5,000 units SUBCUT Q8HR [facility] Last Admin: 03/04/17 05:04 Dose: 5,000 units Insulin Glargine (Lantus(*)) 45 units SUBCUT Q24H [facility] Last Admin: 03/04/17 09:08 Dose: 45 unit Insulin Human Lispro (Humalog*) 0 units SUBCUT ACHS PNA PRN Reason: Protocol Last Admin: 03/04/17 13:16 Dose: 3 unit Insulin Human Lispro (Humalog*) 0 units SUBCUT 0730,1130,1630 PAN PRN Reason: Protocol Last Admin: 03/04/17 13:16 Dose: 17 unit Lidocaine (Lidoderm 5% Patch*) 2 patch TRANSDERM 2100 [facility] Last Admin: 03/03/17 21:22 Dose: 2 patch Lisinopril (Prinivil Tab*) 2.5 mg PO DAILY [facility] Last Admin: 03/04/17 09:02 Dose: 2.5 mg Melatonin (Melatonin (Nf)) 3 mg PO BEDTIME PRN; Protocol PRN Reason: Sleep Multivitamins (Theragran Tab*) 1 tab PO DAILY [facility] Last Admin: 03/04/17 09:02 Dose: 1 tab Omeprazole (Prilosec Cap*) 20 mg PO DAILY@0600 [facility] Last Admin: 03/04/17 05:05 Dose: 20 mg Ondansetron HCl (Zofran Inj*) 4 mg IV Q6H PRN PRN Reason: NAUSEA Oxycodone/Acetaminophen (Percocet 5/325 Tab*) 1 tab PO Q6H PRN PRN Reason: PAIN Last Admin: 03/04/17 02:10 Dose: 1 tab Pharmacy Profile Note (Lidocaine Patch Remove*) 1 note PATCH OFF 0900 [facility] Last Admin: 03/04/17 09:13 Dose: 1 note Pregabalin (Lyrica Cap(*)) 600 mg PO BID [facility] Last Admin: 03/04/17 09:11 Dose: 600 mg Sodium Chloride (Sodium Chloride 0.65% Nasal [place]*) 1 spray BOTH NARES Q4H PRN PRN Reason: Congested nose Last Admin: 02/27/17 16:13 Dose: 1 spray Tamsulosin HCl (Flomax Cap*) 0.4 mg PO DAILY [facility] Last Admin: 03/04/17 09:02 Dose: 0.4 mg Vitamin E (Vitamin E Cap*) 400 unit PO DAILY [facility] Last Admin: 03/04/17 09:04 Dose: 400 unit Vital Signs 03/03/17 03/03/17 03/03/17 15:33 17:51 19:30 Temperature 98.7 F Pulse Rate 75 Respiratory 20 20 22 Rate Blood Pressure 127/53 (mmHg) O2 Sat by Pulse 93 Oximetry 03/03/17 03/03/17 03/03/17 19:45 19:51 20:00 Temperature 99.8 F Pulse Rate 81 87 Respiratory 28 20 25 Rate Blood Pressure 123/46 (mmHg) O2 Sat by Pulse 91 92 Oximetry 03/03/17 03/03/17 03/03/17 21:21 23:21 23:35 Temperature 98.8 F Pulse Rate 84 Respiratory 22 22 16 Rate Blood Pressure 134/53 (mmHg) O2 Sat by Pulse 94 Oximetry 03/04/17 03/04/17 03/04/17 00:00 02:10 04:10 Temperature Pulse Rate Respiratory 24 22 Rate Blood Pressure (mmHg) O2 Sat by Pulse 92 Oximetry 03/04/17 03/04/17 03/04/17 08:00 08:02 09:11 Temperature 98.7 F Pulse Rate 82 Respiratory 20 26 18 Rate Blood Pressure 147/60 (mmHg) O2 Sat by Pulse 91 Oximetry 03/04/17 11:11 Temperature Pulse Rate Respiratory 20 Rate Blood Pressure (mmHg) O2 Sat by Pulse Oximetry Oxygen Devices in Use Now: - - Oxymask at 5 liters Appearance: 71 yo M in nAD, AAOx3, frequently drifting off to sleep during the exam Eyes: No Scleral Icterus, PERRLA Ears/Nose/Mouth/Throat: NL Teeth, Lips, Gums, Mucous Membranes Moist Neck: NL Appearance and Movements; NL JVP, Trachea Midline Respiratory: Symmetrical Chest Expansion and Respiratory Effort, Clear to Auscultation Cardiovascular: NL Sounds; No Murmurs; No JVD, RRR Abdominal: NL Sounds; No Tenderness; No Distention, No Hepatosplenomegaly Lymphatic: No Cervical Adenopathy Extremities: No Clubbing, Cyanosis, - - +1 pitting edema b/l Skin: No Nodules or Sclerosis, - - venous stasis changes in b/l LE's Neurological: Alert and Oriented x 3, - - generalized weakness due to deconditioning Result Diagrams: 03/02/17 08:22 03/03/17 04:53 Additional Lab and Data: Lab Results 02/22/17 02/22/17 02/22/17 Range/Units 23:45 23:45 23:45 WBC 8.7 (3.5-10.8) 10^3/ul RBC 3.57 L (4.0-5.4) 10^6/ul Hgb 9.3 L (14.0-18.0) g/dl Hct 30 L (42-52) % MCV 83 (80-94) fL MCH 26 L (27-31) pg MCHC 31 (31-36) g/dl RDW 16 H (10.5-15) % Plt Count 191 (150-450) 10^3/ul MPV 9 (7.4-10.4) um3 Neut % (Auto) 74.4 (38-83) % Lymph % (Auto) 11.2 L (25-47) % [place] % (Auto) 9.1 H (1-9) % Eos % (Auto) 4.5 (0-6) % Baso % (Auto) 0.8 (0-2) % Absolute Neuts (auto) 6.5 (1.5-7.7) 10^3/ul Absolute Lymphs (auto) 1.0 (1.0-4.8) 10^3/ul Absolute Monos (auto) 0.8 (0-0.8) 10^3/ul Absolute Eos (auto) 0.4 (0-0.6) 10^3/ul Absolute Basos (auto) 0.1 (0-0.2) 10^3/ul Absolute Nucleated RBC 0.01 10^3/ul Nucleated RBC % 0.1 INR (Anticoag Therapy) 0.87 L (0.89-1.11) APTT 34.0 (26.0-36.3) seconds Sodium 137 (133-145) mmol/L Potassium 3.7 (3.5-5.0) mmol/L Chloride 96 L (101-111) mmol/L Carbon Dioxide 38 H (22-32) mmol/L Anion Gap 3 (2-11) mmol/L BUN 25 H (6-24) mg/dL Creatinine 1.47 H (0.67-1.17) mg/dL Est GFR ( Amer) 60.7 (>60) Est GFR (Non-Af Amer) 47.2 (>60) BUN/Creatinine Ratio 17.0 (8-20) Glucose 327 H (70-100) mg/dL Lactic Acid (0.5-2.0) mmol/L Calcium 9.1 (8.6-10.3) mg/dL Total Bilirubin 0.30 (0.2-1.0) mg/dL AST 13 (13-39) U/L ALT 13 (7-52) U/L Alkaline Phosphatase 82 (34-104) U/L Troponin I 0.03 (<0.04) ng/mL B-Natriuretic Peptide ( - 100) pg/mL Total Protein 6.8 (6.4-8.9) g/dL Albumin 3.3 (3.2-5.2) g/dL Globulin 3.5 (2-4) g/dL Albumin/Globulin Ratio 0.9 L (1-3) 02/22/17 02/22/17 Range/Units 23:45 23:45 WBC (3.5-10.8) 10^3/ul RBC (4.0-5.4) 10^6/ul Hgb (14.0-18.0) g/dl Hct (42-52) % MCV (80-94) fL MCH (27-31) pg MCHC (31-36) g/dl RDW (10.5-15) % Plt Count (150-450) 10^3/ul MPV (7.4-10.4) um3 Neut % (Auto) (38-83) % Lymph % (Auto) (25-47) % [place] % (Auto) (1-9) % Eos % (Auto) (0-6) % Baso % (Auto) (0-2) % Absolute Neuts (auto) (1.5-7.7) 10^3/ul Absolute Lymphs (auto) (1.0-4.8) 10^3/ul Absolute Monos (auto) (0-0.8) 10^3/ul Absolute Eos (auto) (0-0.6) 10^3/ul Absolute Basos (auto) (0-0.2) 10^3/ul Absolute Nucleated RBC 10^3/ul Nucleated RBC % INR (Anticoag Therapy) (0.89-1.11) APTT (26.0-36.3) seconds Sodium (133-145) mmol/L Potassium (3.5-5.0) mmol/L Chloride (101-111) mmol/L Carbon Dioxide (22-32) mmol/L Anion Gap (2-11) mmol/L BUN (6-24) mg/dL Creatinine (0.67-1.17) mg/dL Est GFR ( Amer) (>60) Est GFR (Non-Af Amer) (>60) BUN/Creatinine Ratio (8-20) Glucose (70-100) mg/dL Lactic Acid 1.2 (0.5-2.0) mmol/L Calcium (8.6-10.3) mg/dL Total Bilirubin (0.2-1.0) mg/dL AST (13-39) U/L ALT (7-52) U/L Alkaline Phosphatase (34-104) U/L Troponin I (<0.04) ng/mL B-Natriuretic Peptide 89 ( - 100) pg/mL Total Protein (6.4-8.9) g/dL Albumin (3.2-5.2) g/dL Globulin (2-4) g/dL Albumin/Globulin Ratio (1-3) Microbiology and Other Data: Microbiology 02/23/17 04:58 Aerobic Blood Culture - Preliminary Blood Venous No Growth Day 1 Anaerobic Blood Culture - Preliminary No Growth Day 1 Assess/Plan/Problems-Billing Assessment: Mr. Ortiz is a 71yo M with PMH of morbid obesity, CAD, type 2 DM, obesity hypoventilation syndrome with chronic respiratory failure, diastolic CHF, VAMSI on CPAP, peripheral neuropathy, CKD stage 3, who presented to ED with c/o dyspnea, found to have acute diastolic CHF exacerbation. - Patient Problems (1) Fever Comment: resolved Could be drug fever secondary to cephalosporin - discontinued. - Cultures show no growth so far. - CxR showed no new infiltrates. (2) Acute diastolic CHF (congestive heart failure) Comment: Suspect dietary non-compliance precipitated this episode. Echo done 02/02 showed EF 50-55%. continue Metolazone/Furosemide at home doses, will add Lasix 40 mg IV x 1 now. Weights not consistent (3) Acute and chronic respiratory failure Comment: - Secondary to obesity hypoventilation syndrome, worsened by CHF. - Patient required 2.5 liters on supplemental O2 at baseline, and further review shows he was already on BiPAP at home. As per Dr. Lazaro - JENNIFER for his obesity hypoventilation syndrome. CM to assist with set up.Uses Trilogy now when sleeping will get another ABG today due to lethargy Wearing 5 liters of O2 during the day. (4) Obesity hypoventilation syndrome Comment: patient requires noninvasive ventilator due to acute on chronic obesity hypoventilation syndrome. BiPAP has been considered but did not offer the best mode of therapy. The Trilogy offers the AVAP-AE mode which will target his tidal volume based on his ideal body weight. The auto-EPAP will effectively treat his apneas and provide him with more comfortable pressures than CPAP ( that he could not tolerate in the past). The Trilogy offers 6 hours of battery life and can be used in the event of a power outage as patient is at risk for a life threatening event. It will provide the pulmonary support he needs to improve his quality of life and reduce hospitalizations. COPD does not contribute to his hypercapnea. (5) Diabetes Comment: - Last A1c was 7.6 end of January. - Continue Lantus and Lispro SS. (6) HTN (hypertension) Comment: - Continue Amlodipine. (7) Diabetic neuropathy Comment: - Continue Lyrica. (8) Bilateral lower leg cellulitis Comment: - Combination of stasis dermatitis and infection. treated with 7 days of antibiotics(finished course on 03/02/17) (9) Anemia Comment: - Suspect anemia of renal disease. Iron is borderline low, but ferritin is normal. - Erythropoietin is normal, but would expect a higher level with his anemia. (10) Morbid obesity Comment: - Will refer to [facility] on discharge. (11) Physical deconditioning Comment: - Patient now requires a Samuel lift. - No focal deficits, just appears to be very deconditioned. - Continue PT/OT. - Plan for placement at [facility] for rehab. (12) DVT prophylaxis Comment: - SQ heparin. Status and Disposition: Inpatient. Plan to d/c to SNF for rehab likely tomorrow
[2017-03-04 16:40] LABS: FIO2 10
[2017-03-04 16:52] LABS: PCO2 Arterial 73 mmHg (35-45)
[2017-03-04] MEDS: Lidocaine PATCH 5%* 1 PATCH TRANSDERM SCH (22:33)
[2017-03-05] MEDS: oxyCODONE/Acetamin 5/325 MG* TAB PO PRN ×2 (04:30→13:35)
[2017-03-05 05:12] LABS: Hematocrit 26 % (42-52); Hemoglobin 8.2 g/dl (14.0-18.0); Mean Corpuscular HGB Conc 32 g/dl (31-36); Mean Corpuscular Hemoglobin 25 pg (27-31); Mean Corpuscular Volume 80 fL (80-94); Mean Platelet Volume 8 um3 (7.4-10.4); Red Blood Count 3.24 10^6/ul (4.0-5.4); Red Cell Distribution Width 16 % (10.5-15); White Blood Count 14.1 10^3/ul (3.5-10.8)
[2017-03-05 05:25] LABS: BUN/Creatinine Ratio 41.9 (8-20); Calcium 8.9 mg/dL (8.6-10.3); EGFR African American 60.3 (>60); EGFR Non-African American 46.9 (>60)
[2017-03-05] MEDS: Omeprazole CAP* 20 MG PO SCH (06:02)
[2017-03-05] MEDS: Heparin VIAL(*) 5000 UNITS/ML VIAL (FIVE THOUSAND) SUBCUT SCH ×2 (06:02→13:35)
[2017-03-05] MEDS: Acetaminophen TAB* 325 MG PO PRN (09:56)
[2017-03-05] MEDS: Pregabalin CAP(*) 100 MG PO SCH (09:57)
[2017-03-05] MEDS: amLODIPine TAB* 5 MG PO SCH (09:59)
[2017-03-05] MEDS: Vitamin E CAP* 400 UNIT PO SCH (09:59)
[2017-03-05] MEDS: Lisinopril TAB* 5 MG PO SCH (10:00)
[2017-03-05] MEDS: Furosemide TAB* 40 MG PO SCH (10:00)
[2017-03-05] MEDS: Tamsulosin CAP* 0.4 MG PO SCH (10:01)
[2017-03-05] MEDS: Ascorbic Acid TAB* 500 MG PO SCH (10:01)
[2017-03-05] MEDS: Vitamin THERAPEUTIC TAB PO SCH (10:01)
[2017-03-05] MEDS: Finasteride TAB* 5 MG PO SCH (10:01)
[2017-03-05] MEDS: Insulin GLARGINE(*) 1 UNITS UNIT SUBCUT SCH (10:06)
[2017-03-05] MEDS: Insulin LISPRO* 1 UNITS UNIT SUBCUT SCH ×4 (10:06→13:34)
--- NOTE | 2017-03-05 12:43 | DS ---
CC: [facility]; Dr. Lazaro; Dr. Samayoa * DISCHARGE SUMMARY: DATE OF ADMISSION: 02/23/17 DATE OF DISCHARGE: 03/05/17 PRIMARY CARE PROVIDER: Dr. Samayoa. DISCHARGE DIAGNOSIS: 1. Acute on chronic respiratory failure due to acute diastolic congestive heart failure. 2. Cellulitis on bilateral lower extremities during the current hospital stay. SECONDARY DIAGNOSES: 1. Diabetes type 2. 2. Morbid obesity with body mass index of above 50. 3. Chronic respiratory failure, on oxygen at home previously. Currently, the patient requires ventilatory system Trilogy at discharge. 4. History of diastolic congestive heart failure. 5. Coronary artery disease. 6. Hypertension. 7. Obstructive sleep apnea, intolerant of continuous positive airway pressure in the past. 8. Peripheral neuropathy. 9. Chronic bilateral lower extremity edema. 10. Super morbid obesity. MEDICATIONS AT DISCHARGE: The patient is recommended to continue oxygen via OxyMask at approximately 8 L when conversing or eating. At all the other time, the patient is to be on Trilogy to ease the work of breathing. The main medications include; 1. Coenzyme Q10 200 mg daily. 2. Niacin 500 mg daily. 3. Glucosamine 1 capsule b.i.d. 4. Multivitamin 1 tablet daily. 5. Acetaminophen on a p.r.n. basis. 6. DuoNeb 4 times a day as scheduled. 7. Vitamin C 500 mg daily. 8. Proscar 5 mg daily. 9. Lasix 80 mg in the morning and 40 at bedtime. 10. Insulin glargine 45 units daily. 11. Lidoderm patch 2 patches transdermally applied to affected areas and remove daily. 12. Melatonin 3 mg at bedtime. 13. Nabumetone 750 mg b.i.d. 14. [place]-3 fatty acids 1200 mg daily. 15. Lyrica 600 mg b.i.d. 16. Saline nasal spray 1 spray both nostrils every 2 hours for dryness. 17. Flomax 0.4 mg daily. 18. Vitamin B complex 1 capsule daily. 19. Vitamin E 400 units daily. 20. Oxycodone and acetaminophen 5/325 mg 1 tablet every 6 hours as needed for pain. LABORATORY DATA AND STUDIES PERFORMED DURING THE HOSPITAL STAY: On 03/05/17, white blood cell count of 14.1, hemoglobin of 8.2, hematocrit of 26, and platelets of 376. Sodium of 129, potassium 4.0, chloride 80, carbon dioxide 44 , BUN 62, creatinine 1.48. ABG obtained on 03/04/17 showed pH of 7.45, pCO2 of 73, pO2 of 67, bicarb of 43, and oxygen saturation of 95. Chest x-ray obtained on 02/28/17, impression: "Findings suggestive of congestive heart failure. Unchanged." HOSPITALIZATION COURSE: Jesus Ortiz is a 71-year-old super-morbidly obese male with history of oxygen-dependent chronic respiratory failure and chronic respiratory acidosis who presented to the hospital with acute respiratory failure once again. It was thought to be due to diastolic CHF and dietary noncompliance. The patient was admitted to our hospital, treated for several days with intravenous diuretics. Dr. Lazaro was contacted in regards of the patient's pulmonary status and recommended Trilogy ventilatory support for this patient who has chronic severe obesity hypoventilation syndrome. The Trilogy was supposed to be set in on the AZAP/AE mode, which will target the patient's tidal volume based on the patient's ideal body weight. By the time of the patient's hospital stay, the patient was Samuel lift dependent and very deconditioned and was candidate for usp rehabilitation. He is going to be discharged to [facility] with Trilogy support. Once again, the patient is recommended to use Trilogy as frequently as possible and to be back on oxygen at 8 L when carrying on conversation or eating. The patient's Lasix was increased from 80 mg daily at admission to 80 mg daily in the morning and 40 at night. The patient's weight on the day of discharge was 441 pounds and the staff at [facility] was recommended to weigh the patient on a daily basis and to notify a physician of his weight increases over 3 pounds. The patient is aware that the patient's chronic respiratory failure is severe and there is very little that can be done to improve it. He is aware of that, that he needs to lose weight to improve his respiratory status. During his hospital stay, he wished to be full CPR apart from do not intubate and a MOLST form was signed. He is going to be discharged to [facility] where Trilogy is going to be utilized. PHYSICAL EXAMINATION: At the time of discharge; blood pressure 117/62, heart rate of 70 and regular, respiratory rate 16, oxygen saturation 90% on 8 L of oxygen and 95% on Trilogy, and temperature of 98.1. General: This is a very pleasant 71-year-old super-morbidly obese male who is in no acute distress. The patient is alert and oriented x3. HEENT: Head is atraumatic, normocephalic. Eyes: Pupils equal and reactive to light and accommodation. Oropharynx clear. Mucosa moist. Neck: Supple. No JVD. No bruits bilaterally. Cardiovascular: Regular rate and rhythm. No murmurs. Respiratory : Decreased breath sounds throughout with fine wheezes at bilateral bases. Abdomen: Protuberant, soft, and nontender. Bowel sounds present in all 4 quadrants. Extremities: There is chronic edema and chronic venous stasis changes and discoloration in bilateral lower extremities. There is no evidence of cellulitis. The edema is greatly improved from prior, at +1 now. Neuro Evaluation: Noted for generalized deconditioning. Speech clear. Cranial nerves II through XII grossly intact. Motor strength is 5/5 bilaterally. Please note this is a short summary of the patient's hospitalization. Please refer to further medical records for details. TIME SPENT: Approximately 45 minutes was spent on the patient's discharge. [id number]/CPS #: [id number] [facility]
[2017-03-05] MEDS: Lidocaine Patch REMOVE* 1 NOTE MISC PATCH OFF SCH (13:33)
[2017-03-05 16:29] VITALS: BP 110/57
[2017-03-05] MEDS ORDERED: Pregabalin CAP(*) 300 MG PO SCH (21:00)
== END 2017-03-05 16:56 | DRG 291 ==
LOC: ED 22:52 → MEDTELE 02-23 01:24
PROVIDERS: ADMIT Hospitalist; ATTEND Internal Medicine
DX: I13.0 Hypertensive heart and chronic kidney disease with heart failure and stage 1 through stage 4 chronic kidney disease, or unspecified chronic kidney disease (principal); I50.43 Acute on chronic combined systolic (congestive) and diastolic (congestive) heart failure; J96.21 Acute and chronic respiratory failure with hypoxia; E87.2 Acidosis; E11.22 Type 2 diabetes mellitus with diabetic chronic kidney disease; E11.42 Type 2 diabetes mellitus with diabetic polyneuropathy; L03.115 Cellulitis of right lower limb; Z68.43 Body mass index [BMI] 50.0-59.9, adult; E66.2 Morbid (severe) obesity with alveolar hypoventilation; L03.116 Cellulitis of left lower limb; E11.51 Type 2 diabetes mellitus with diabetic peripheral angiopathy without gangrene; I25.10 Atherosclerotic heart disease of native coronary artery without angina pectoris; J44.9 Chronic obstructive pulmonary disease, unspecified; N40.0 Benign prostatic hyperplasia without lower urinary tract symptoms; F41.9 Anxiety disorder, unspecified; F43.10 Post-traumatic stress disorder, unspecified; H91.90 Unspecified hearing loss, unspecified ear; Z66 Do not resuscitate; I77.819 Aortic ectasia, unspecified site; I07.1 Rheumatic tricuspid insufficiency; D64.9 Anemia, unspecified; N18.3 Chronic kidney disease, stage 3 (moderate); R50.9 Fever, unspecified; I87.2 Venous insufficiency (chronic) (peripheral); M25.511 Pain in right shoulder; M54.5 Low back pain; I89.0 Lymphedema, not elsewhere classified; Z91.11 Patient's noncompliance with dietary regimen; Z82.49 Family history of ischemic heart disease and other diseases of the circulatory system; Z83.3 Family history of diabetes mellitus; Z87.891 Personal history of nicotine dependence; Z88.8 Allergy status to other drugs, medicaments and biological substances; Z97.4 Presence of external hearing-aid; I25.2 Old myocardial infarction; Z99.81 Dependence on supplemental oxygen; Z91.81 History of falling; Z79.4 Long term (current) use of insulin
CPT/HCPCS: 36415; 36600; 71010; 80048; 80053; 81003; 81015; 82607; 82668; 82728; 82746; 82803; 83540; 83550; 83605; 83880; 84484; 85025; 85027; 85610; 85730; 87040; 93005; 94660; 94760; A9270-GY; J0690; J1644; J1940; J1956

== ENCOUNTER 2017-03-06 14:01 | Inpatient (IN) | payer MEDICARE, BC ==
--- NOTE | 2017-03-06 15:40 | ED ---
Yakelin Mirza Rebecca, scribed for Kaylah Hoffmann MD on 03/06/17 at 1502 . Complex/Multi-Sys Presentation - HPI Summary HPI Summary: Pt is a 71 y/o M BIBA accompanied by his and daughter. Pt with a complex medical history including chronic hypovent, CHF, cellulitis, morbid obesity, chronic alcohol use. Pt was discharge to [facility] yesterday for Rehab. Pt and family concerned for care at [facility] as well as his oxygen as it came off and he was unable to reapply. Pt and family returned for placement elsewhere. Pt without any complaints other than reporting L knee "popping" with associated pain when he does his ankle exercise. Sx began 2 days ago and occur while doing his "heel pump" exercise. Reports his associated pain improves after popping occurs. reports mild discomfort in left calf. Additionally c/o constipation. Pt denies SOB, CP, vomiting. Has had prior incidences of constipation. Denies abd pain, arreguin, fevers vision changes. Is not currently yon any blood thinners. Is usually able to walk short distances while at home but recently he has been bed bound while in the hospital. PMHx DM, CHF, DVT, COPD. Typically on 2.5 L O2 at home and was on 8 L O2 at home with o2 sat typically being around 92%. Was able to have breakfast today. Pt reports his primary reason for presenting today is over dissatisfaction with his care at [facility]. He was D/C from [facility] yesterday after his admission ffrom 02/23/2017 to 03/05/2017 for CHF. His family reports he is looking for placement elsewhere because he has received unsatisfactory care at [facility] and were told today by a staff member that they are understaffed. reports he was not seen from his arrival at 6 p.m. until 6 a.m. and waited 2 hours for a new oxygen mask, going without O2 until it was replaced. - History Of Current Complaint Chief Complaint: EDGeneral Time Seen by Provider: 03/06/17 14:59 Hx Obtained From: Patient Onset/Duration: Lasting Days - 2 days, Still Present Timing: Intermittent, Lasting: Location: Pain At: - L knee Aggravating Factor(s): Heel pump exercises Alleviating Factor(s): "popping" Associated Signs And Symptoms: Positive: Other - Consipation. Negative: SOB, Chest Pain Related History: Recent Hospitalization - D/C yesterday - Allergies/Home Medications Allergies/Adverse Reactions: Allergies Allergy/AdvReac Type Severity Reaction Status Date / Time Antihistamines, AdvReac See Comment Verified 03/02/17 07:52 Diphenhydramine-typ antihistamines AdvReac Intermediate Urinary Uncoded 01/31/17 23:10 Retention PMH/Surg Hx/FS Hx/Imm Hx Previously Healthy: Yes Endocrine/Hematology History: Reports: Hx Diabetes Denies: Hx Anticoagulant Therapy, Hx Blood Disorders, Hx Blood Transfusions, Hx Bone Marrow Disease, Hx Systemic Lupus Erythematosus, Hx Sickle Cell Disease , Hx Thyroid Disease, Hx Anemia, Hx Unexplained Bleeding, Other Endocrine/ Hematological Disorders Cardiovascular History: Reports: Hx Angina, Hx Cardiac Arrest, Hx Congestive Heart Failure, Hx Coronary Artery Disease, Hx Deep Vein Thrombosis, Hx Hypertension, Hx Myocardial Infarction - "mild MA" secondary to DVT, Hx Peripheral Vascular Disease Denies: Hx Aneurysm, Hx Angioplasty, Hx Auto Implanted Cardiovert Defib, Hx Cardiomegaly, Hx Congenital Heart Disease, Hx Embolism, Hx Hypercholesterolemia , Hx Hypotension, Hx Pacemaker/ICD, Hx Rheumatic Fever, Hx Syncope, Hx Valvular Heart Disease, Other Cardiovascular Problems/Disorders Respiratory History: Reports: Hx Chronic Obstructive Pulmonary Disease (COPD), Hx Pneumonia, Hx Sleep Apnea Denies: Hx Asthma, Hx Chronic Bronchitis, Hx Cystic Fibrosis, Hx Lung Cancer , Hx Pleural Effusion, Hx Pulmonary Edema, Hx Pulmonary Embolism, Hx Seasonal Allergies, Other Respiratory Problems/Disorders GI History: Denies: Hx Cirrhosis, Hx Crohn's Disease, Hx Diverticulosis, Hx Gall Bladder Disease, Hx Gastroesophageal Reflux Disease, Hx Gastrointestinal Bleed, Hx Hiatal Hernia, Hx Irritable Bowel, Hx Jaundice, Hx Obstructive Bowel, Hx Ileostomy, Hx Pyloric Stenosis, Hx Ulcer, Other GI Disorders History: Reports: Hx Benign Prostatic Hyperplasia Denies: Hx Acute Renal Failure, Hx Chronic Renal Failure, Hx Dialysis, Hx Kidney Infection, Hx Kidney Stones, Other Problems/Disorders Musculoskeletal History: Reports: Hx Back Problems Denies: Hx Arthritis, Hx Bursitis, Hx Congenital Bone Abnormalities, Hx Fibromyalgia, Hx Gout, Hx Orthopedic Injury, Hx Osteoporosis, Hx Scoliosis, Hx Tendonitis Sensory History: Reports: Hx Contacts or Glasses, Hx Hearing Problem Denies: Hx Cataracts, Hx Eye Injury, Hx Eye Prosthesis, Hx Glaucoma, Hx Legally Blind, Hx Macular Degeneration, Hx Vision Problem, Hx Deafness, Hx Hearing Aid, Other Sensory Impairments Opthamlomology History: Reports: Hx Contacts or Glasses Denies: Hx Cataracts, Hx Eye Injury, Hx Eye Prosthesis, Hx Glaucoma, Hx Legally Blind, Hx Macular Degeneration, Hx Vision Problem, Other Sensory Impairments Neurological History: Reports: Hx Nerve Disease Denies: Hx Dementia, Hx Developmental Delay, Hx Headaches, Hx Migraine, Hx Seizures, Hx Spinal Cord Injury, Hx Transient Ischemic Attacks (TIA), Other Neuro Impairments/Disorders Psychiatric History: Reports: Hx Anxiety, Hx Post Traumatic Stress Disorder Denies: Hx Attention Deficit Hyperactivity Disorder, Hx Eating Disorder, Hx Depression, Hx Panic Disorder, Hx Inpatient Treatment, Hx Community Mental Health Tx, Hx Schizophrenia, Hx Bipolar Disorder, Hx Suicide Attempt, Hx of Violent Episodes Against Others, Hx Substance Abuse, Other Psychiatric Issues/ Disorders - Cancer History Hx Chemotherapy: No Hx Radiation Therapy: No Hx Palliative Cancer Treatment: No - Surgical History Surgery Procedure, Year, and Place: Rotator cuff repair 2009. Laminectomy 2000. TURP 2000 Hx Anesthesia Reactions: No Infectious Disease History: No Infectious Disease History: Denies: Hx Hepatitis, Hx Tuberculosis, Traveled Outside the [place] in Last 30 Days - Family History Known Family History: Positive: Cardiac Disease, Hypertension, Diabetes - Social History Alcohol Use: None Substance Use Type: Reports: None Smoking Status (MU): Former Smoker Review of Systems Constitutional: Negative Eyes: Negative ENT: Negative Negative: Chest Pain Positive: Shortness Of Breath - chronic, no changes Positive: Other - constipation. Negative: Vomiting Genitourinary: Negative Positive: Arthralgia - L knee pain, popping Positive: Rash Neurological: Negative Psychological: Normal All Other Systems Reviewed And Are Negative: Yes Physical Exam Triage Information Reviewed: Yes Vital Signs On Initial Exam: Initial Vitals Temp Pulse Resp BP Pulse Ox 98.7 F 84 16 126/54 94 03/06/17 14:20 03/06/17 14:20 03/06/17 14:20 03/06/17 14:20 03/06/17 14:20 Vital Signs Reviewed: Yes Appearance: Positive: Well-Appearing, No Pain Distress, Well-Nourished Skin: Positive: Warm, Skin Color Reflects Adequate Perfusion, Dry, Other - venous stasis changes b/l LE Eyes: Negative: Discharge ENT: Positive: Hearing grossly normal Neck: Positive: Supple, Nontender Respiratory/Lung Sounds: Positive: Clear to Auscultation, Breath Sounds Present Cardiovascular: Positive: Normal, RRR. Negative: Murmur Abdomen Description: Positive: Nontender, No Organomegaly, Soft Bowel Sounds: Positive: Present Musculoskeletal: Positive: Other - + slight SLE b/l + flex/ext ankle with pain in posterior calf + mild TTP prox calf no obvious edema, erythema left knww Neurological: Positive: Alert, Oriented to Person Place, Time. Negative: Slurred Speech Psychiatric: Positive: Normal AVPU Assessment: Alert - [place] Coma Scale Best Eye Response: 4 - Spontaneous Best Motor Response: 6 - Obeys Commands Best Verbal Response: 5 - Oriented Diagnostics - Vital Signs Vital Signs Temp Pulse Resp BP Pulse Ox 03/06/17 14:20 98.7 F 84 16 126/54 94 - Laboratory Lab Statement: Any lab studies that have been ordered have been reviewed, and results considered in the medical decision making process. Complex Multi-Symp Course/Dx Assessment/Plan: Pt presents from [facility] after being discharged to their care yesterday following admissioin for CHF. Pt and family concerning regarding care and so returned to the ED for placement elsewhere. Pt without any new complaints. Pt reports ongoing constipation and left knee popping since hospitalization. will check doppler for DVT. spoke with pt and family - admissioin will likely be snf care as pt without medical necessity for hospital based care.Pt, and daughter all with knowlege and state understanding. Forms completed and sign to this. spoke with hospitalist - will admit - Diagnoses Provider Diagnoses: Left knee pain, Chronic respiratory failure with hypoxia, on home O2 therapy - Physician Notifications Discussed Care Of Patient With: Mayelin Weber Time Discussed With Above Provider: 15:37 Instructed by Provider To: Other - Agrees to admit as a snf admission. Will have Dr. Leslie evaluate pt in the ED. Discharge - Discharge Plan Condition: Stable Disposition: ADMITTED TO [facility] documentation as recorded by the Yakelin sherman Rebecca accurately reflects the service I personally performed and the decisions made by me, Kaylah Hoffmann MD.
[2017-03-06] MEDS ORDERED: Saline NASAL SPRAY 0.65%* BTL BOTH NARES PRN (16:01)
[2017-03-06] MEDS ORDERED: oxyCODONE/Acetamin 5/325 MG* TAB PO PRN (16:01)
[2017-03-06] MEDS ORDERED: Dextrose 50% Syringe 50 ML* 25 GM/50 ML SYRINGE IV PUSH PRN (16:04)
[2017-03-06] MEDS ORDERED: Magnesium CITRATE* 300 ML BTL PO ONE (16:29)
[2017-03-06] MEDS ORDERED: Nabumetone TAB* 500 MG PO PRN (16:40)
[2017-03-06] MEDS ORDERED: Albuterol/Ipratropium NEB.SOL* Albuterol 2.5 MG/Ipratropium 0.5 MG 3 ML INH SCH (17:00)
--- NOTE | 2017-03-06 17:22 | RAD ---
INDICATION: Left knee pain and crepitus COMPARISON: None TECHNIQUE: 2 view radiograph of the left knee. FINDINGS: The visualized bones are well-corticated and properly aligned. Degenerative changes of the left knee include near complete obliteration of the medial compartment joint space with sclerotic change of the medial tibial plateau. There is marginal osteophyte formation adjacent to both the medial and lateral compartment. There is narrowing at the patellofemoral joint on the lateral view of the knee with superior and inferior pole marginal osteophyte formation. There is a very small joint effusion. There is no acute fracture, dislocation or other focal bony abnormality. IMPRESSION: Moderate to advanced degenerative changes of the left knee with a small joint effusion. If the patient's symptoms persist, follow-up imaging is recommended.
[2017-03-06] MEDS: Insulin GLARGINE(*) 1 UNITS UNIT SUBCUT SCH (18:04)
[2017-03-06] MEDS: Insulin LISPRO* 1 UNITS UNIT SUBCUT SCH (18:04)
--- NOTE | 2017-03-06 18:19 | RAD ---
HISTORY: Left lower extremity pain TECHNIQUE: Multiple transverse and longitudinal ultrasound images were obtained of the veins of the left lower extremity using grayscale, color Doppler, and spectral Doppler imaging with and without compression and with augmentation. FINDINGS: VEINS: The common femoral vein, deep femoral vein, femoral vein and popliteal vein are compressible throughout their course, with normal flow on color Doppler imaging and normal response to augmentation on spectral Doppler imaging. SOFT TISSUES: Grossly normal. No large popliteal fossa cyst was identified. IMPRESSION: No sonographic evidence of deep vein thrombosis.
[2017-03-06] MEDS: Albuterol/Ipratropium NEB.SOL* Albuterol 2.5 MG/Ipratropium 0.5 MG 3 ML INH SCH (19:18)
[2017-03-06] MEDS: Docusate CAP* 100 MG PO SCH (20:31)
[2017-03-06] MEDS: Senna TAB PO SCH (20:32)
[2017-03-06] MEDS: Furosemide TAB* 40 MG PO SCH (20:33)
[2017-03-06] MEDS: Pregabalin CAP(*) 100 MG PO SCH (20:33)
[2017-03-06] MEDS: Lidocaine PATCH 5%* 1 PATCH TRANSDERM SCH (20:37)
[2017-03-06] MEDS ORDERED: Nabumetone TAB* 500 MG PO SCH (21:00)
[2017-03-06] MEDS: Heparin VIAL(*) 5000 UNITS/ML VIAL (FIVE THOUSAND) SUBCUT SCH (22:12)
--- NOTE | 2017-03-06 23:26 | HP ---
CC: Dr. Samayoa * HISTORY AND PHYSICAL: DATE OF ADMISSION: 03/06/17 PRIMARY CARE PROVIDER: Dr. Samayoa. CHIEF COMPLAINT: Not adequate care at short-term rehabilitation facility. HISTORY OF PRESENT ILLNESS: Jesus Ortiz is a 71-year-old male who was just discharged from our facility yesterday. That was after 10-day stay for acute on chronic respiratory failure due to CHF and obesity hypoventilation syndrome. The patient was discharged on 8 L of oxygen via OxyMask when not resting and with the support of Trilogy ventilatory system when resting. The patient stated that after he presented to [facility] that Trilogy was not able to be set up until the night. Apparently at some point, his oxygen mask fell off the bed and he was unable to reach it himself. He was 3 hours without oxygen. He also mentioned that one of the staff members from [facility] mentioned to the patient that he is too chronically ill to be able to be taken care of at that particular facility. The patient presented today to the ER with the above complaints and requested to be readmitted and reevaluated for placement in another facility. The patient signed paperwork admission and he is going to be readmitted to the hospital. PAST MEDICAL HISTORY: 1. Coronary artery disease. 2. Chronic diastolic CHF. 3. History of obesity hypoventilation syndrome, on oxygen, currently on 8 L continuous oxygen via OxyMask when active and on Trilogy ventilatory system support when sleeping or resting. 4. History of chronic hypercapnic respiratory failure. 5. History of obstructive sleep apnea. 6. Diabetes type 2. 7. Hypertension. 8. Peripheral neuropathy. 9. Chronic bilateral lower extremities venous stasis. 10. Super morbid obesity. MEDICATIONS: At home include: 1. Coenzyme Q10 200 mg daily. 2. Niacin 500 mg daily. 3. Glucosamine 1 capsule b.i.d. 4. Multivitamin 1 tablet daily. 5. Acetaminophen on a p.r.n. basis. 6. DuoNeb 4 times a day as scheduled. 7. Vitamin C 500 mg daily. 8. Proscar 5 mg daily. 9. Lasix 80 mg in the morning and 40 at bedtime. 10. Insulin glargine 45 units daily. 11. Lidoderm patch 2 patches transdermally, apply to affected area daily. 12. Melatonin 3 mg at bedtime. 13. Nabumetone 750 mg b.i.d. 14. [place]-3 fatty acid 1200 mg daily. 15. Lyrica 600 mg b.i.d. 16. Saline nasal spray 1 spray both nostrils every 2 hours for dryness. 17. Flomax 0.4 mg daily. 18. Vitamin B complex 1 capsule daily. 19. Vitamin E 400 units daily. 20. Oxycodone and acetaminophen 5/325 mg every 6 hours p.r.n. pain. As mentioned above, the patient also is on oxygen continuously at 8 L and Trilogy ventilatory system when sleeping and resting. ALLERGIES: Include ANTIHISTAMINES including BENADRYL. FAMILY HISTORY: Positive for coronary artery disease in father who passed in his 40s secondary to MT. SOCIAL HISTORY: The patient has history of smoking approximately 20 pack years. The patient stopped remotely. He denies any alcohol or drug use. He lives with his who is his healthcare proxy. 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 REVIEW OF SYSTEMS: Please see history of present illness. The patient stated that his bilateral shoulders are chronically hurting due to rotator cuff problems, especially his right shoulder. He apparently was not deemed to be a good candidate for surgery, have it repaired and his limited mobility due to that. The patient also complains of chronic osteoarthritic pain bilateral knees , left more than right. His left knee also had been hurting when he tried to move it and "making a popping sound." He actually feels pretty well and denies any shortness of breath worse than his chronic issues. He had been on OxyMask at 8 L without any problem. He has chronically edematous bilateral lower extremities and that had been unchanged. He complains of constipation for the past 5 days. All the remaining 14 systems were reviewed with the patient and was negative. PHYSICAL EXAMINATION GENERAL: The patient is a very pleasant 71-year-old male whose BMI is 50 kg/ sq. m. The patient in no acute distress. Alert, awake and oriented x3. VITAL SIGNS: Blood pressure of 126/54, heart rate of 84 and regular, respiratory rate 16, oxygen saturation 94% on 8 L of oxygen via nasal cannula, temperature of 98.7. HEENT: Head: Atraumatic, normocephalic. Eyes: Pupils are equal, reactive to light and accommodation. Oropharynx clear. Mucosa moist. NECK: Supple. No JVD. No bruits bilaterally. RESPIRATORY: Clear to auscultation bilaterally. CARDIOVASCULAR: Regular rate and rhythm. No murmur. ABDOMEN: Soft and nontender. Bowel sounds are present in all 4 quadrants. EXTREMITIES: There is chronic bilateral leg edema. Pulses are +2 bilaterally. No clubbing or cyanosis. NEUROLOGIC: Speech clear. Cranial nerves II through XII grossly intact. Motor strength is 5/5 bilaterally. SKIN: The patient has venous stasis dermatitis in bilateral lower extremities with no evidence of cellulitis. MUSCULOSKELETAL: On evaluation of patient's joints, the patient has limitation of movement in the right shoulder due to pain elicited with movement. The patient also has limitation of movement in her left knee due to pain when checking range of motion. Also, crepitus felt on evaluation. There is no effusion noted, but patient's lower extremities are markedly obese. DIAGNOSTIC STUDIES/LAB DATA: Performed today none. ASSESSMENT AND PLAN: Mr. Ortiz is a 71-year-old male with history of chronic obesity hypoventilation syndrome and respiratory failure as well as hypercapnia due to that who presents dissatisfied with placement in the short- term rehabilitation facility and the care provided there. The patient requested to be admitted for [facility] admission and placement to another facility. 1. In regards to patient's arthritic pain in the left knee, I will obtain x- rays of the left knee and evaluate further. I suspect the patient has bad osteoarthritis and unfortunately he is not an operative candidate to his chronic ongoing conditions. 2. In regards to his obesity hypoventilation syndrome and chronic respiratory failure, the patient is going to be continued on 8 L of oxygen via OxyMask and Trilogy when resting. DuoNebs are going to be provided 4 times on a scheduled basis. 3. In regards to patient's chronic diastolic congestive heart failure. Not in exacerbation. The patient is going to be continued on his outpatient dose of Lasix. His creatinine is going to be rechecked in the morning. 4. In regards to patient's diabetes, the patient is going to be continued on his insulin glargine and insulin sliding scale. 5. In regards to chronic pain, Lidoderm is going to be provided. The patient' s family stated that after narcotic pain medications, the patient gets too sedated and that is going to be discontinued. 6. For DVT prophylaxis, the patient is going to be placed on heparin subcutaneously. 7. The patient's code status was reconfirmed with the patient and patient's family and he wishes to be a full code but he also wishes to be do not intubate. His healthcare proxy is his . TIME SPENT: Approximately 62 minutes was spent on admission of this patient, more than half the time was spent [id number] with the patient doing the interview and physical exam. [id number]/[facility] #: [id number] ROBERT
[2017-03-07] MEDS: Albuterol/Ipratropium NEB.SOL* Albuterol 2.5 MG/Ipratropium 0.5 MG 3 ML INH SCH ×4 (00:25→19:52)
[2017-03-07] MEDS: Heparin VIAL(*) 5000 UNITS/ML VIAL (FIVE THOUSAND) SUBCUT SCH ×3 (05:38→21:46)
[2017-03-07 06:59] LABS: BUN/Creatinine Ratio 46.6 (8-20); Calcium 9.3 mg/dL (8.6-10.3); EGFR African American 78.3 (>60); EGFR Non-African American 60.9 (>60)
[2017-03-07] MEDS: Insulin LISPRO* 1 UNITS UNIT SUBCUT SCH ×3 (09:39→17:08)
[2017-03-07] MEDS: Tamsulosin CAP* 0.4 MG PO SCH (09:40)
[2017-03-07] MEDS: Furosemide TAB* 40 MG PO SCH ×2 (09:40→21:40)
[2017-03-07] MEDS: Pregabalin CAP(*) 100 MG PO SCH ×2 (09:40→21:41)
[2017-03-07] MEDS: Finasteride TAB* 5 MG PO SCH (09:40)
[2017-03-07] MEDS: Lidocaine Patch REMOVE* 1 NOTE MISC PATCH OFF SCH (09:41)
[2017-03-07] MEDS: Docusate CAP* 100 MG PO SCH ×2 (09:41→21:41)
[2017-03-07] MEDS: Acetaminophen TAB* 325 MG PO PRN (09:50)
[2017-03-07] MEDS ORDERED: Magnesium CITRATE* 300 ML BTL PO ONE (11:00)
[2017-03-07] MEDS ORDERED: Bisacodyl SUPP* 10 MG SUPP PR ONE (13:49)
[2017-03-07] MEDS ORDERED: Bisacodyl SUPP* 10 MG SUPP PR PRN (13:49)
[2017-03-07] MEDS ORDERED: Magnesium Hydroxide LIQ* 30 ML UDC PO ONE (13:50)
[2017-03-07] MEDS ORDERED: Magnesium Hydroxide LIQ* 30 ML UDC PO PRN (13:50)
--- NOTE | 2017-03-07 13:54 | PN ---
Subjective Date of Service: 03/07/17 Interval History: Pt feels "OK". Denies worsening SOB. Objective Active Medications: Acetaminophen (Tylenol Tab*) 650 mg PO Q4H PRN PRN Reason: FEVER/PAIN Last Admin: 03/07/17 09:50 Dose: 650 mg Albuterol/Ipratropium (Duoneb (Albuterol 2.5 Mg/Ipratropium 0.5 Mg)) 1 neb INH [id number] AWAKE [facility] Last Admin: 03/07/17 13:25 Dose: 1 neb Dextrose (D50w Syringe 50 Ml*) 12.5 gm IV PUSH .FOR FS < 60 - SS PRN PRN Reason: FS < 60 Docusate Sodium (Colace Cap*) 100 mg PO BID [facility] Last Admin: 03/07/17 09:41 Dose: 100 mg Finasteride (Proscar Tab*) 5 mg PO DAILY [facility] Last Admin: 03/07/17 09:40 Dose: 5 mg Furosemide (Lasix Tab*) 40 mg PO BEDTIME [facility] Last Admin: 03/06/17 20:33 Dose: 40 mg Furosemide (Lasix Tab*) 80 mg PO DAILY [facility] Last Admin: 03/07/17 09:40 Dose: 80 mg Heparin Sodium (Porcine) (Heparin Vial(*)) 5,000 units SUBCUT Q8HR [facility] Last Admin: 03/07/17 12:15 Dose: 5,000 units Insulin Glargine (Lantus(*)) 45 units SUBCUT Q24H [facility] Last Admin: 03/06/17 18:04 Dose: 45 units Insulin Human Lispro (Humalog*) 0 units SUBCUT AC [facility] PRN Reason: Protocol Last Admin: 03/07/17 12:15 Dose: 6 units Lidocaine (Lidoderm 5% Patch*) 2 patch TRANSDERM 2100 [facility] Last Admin: 03/06/17 20:37 Dose: 2 patch Nabumetone (Relafen Tab*) 750 mg PO BID PRN PRN Reason: PAIN Pharmacy Profile Note (Lidocaine Patch Remove*) 1 note PATCH OFF 0900 [facility] Last Admin: 03/07/17 09:41 Dose: 1 note Pregabalin (Lyrica Cap(*)) 600 mg PO BID [facility] Last Admin: 03/07/17 09:40 Dose: 600 mg Senna (Senokot Tab*) 2 tab PO BEDTIME [facility] Last Admin: 03/06/17 20:32 Dose: 2 tab Sodium Chloride (Sodium Chloride 0.65% Nasal [place]*) 1 spray BOTH NARES Q4H PRN PRN Reason: Congested nose Tamsulosin HCl (Flomax Cap*) 0.4 mg PO DAILY [facility] Last Admin: 03/07/17 09:40 Dose: 0.4 mg Vital Signs 03/07/17 03/07/17 11:40 13:26 Pulse Rate 84 Respiratory 19 18 Rate O2 Sat by Pulse 93 Oximetry Oxygen Devices in Use Now: Simple Face Mask - at 8L Appearance: 71 yo M in nAD, aAOx3 Eyes: No Scleral Icterus, PERRLA Ears/Nose/Mouth/Throat: NL Teeth, Lips, Gums, Mucous Membranes Moist Neck: NL Appearance and Movements; NL JVP, Trachea Midline Respiratory: Symmetrical Chest Expansion and Respiratory Effort, - - scant b/l mid lung wheezes Cardiovascular: NL Sounds; No Murmurs; No JVD, RRR Abdominal: NL Sounds; No Tenderness; No Distention Lymphatic: No Cervical Adenopathy Extremities: No Clubbing, Cyanosis, - - venous stais chnages and edema of b/l LE 's improving Skin: No Nodules or Sclerosis Neurological: Alert and Oriented x 3, NL Muscle Strength and Tone Result Diagrams: 03/07/17 06:35 Assess/Plan/Problems-Billing Assessment: Mr. Ortiz is a 71yo M with PMH of morbid obesity, CAD, type 2 DM, obesity hypoventilation syndrome with chronic respiratory failure, diastolic CHF, VAMSI on CPAP, peripheral neuropathy, CKD stage 3, who presented to ED a day after admission to [facility] with request to be placed to another facility - Patient Problems (1) Obesity hypoventilation syndrome Comment: patient requires noninvasive ventilator due to acute on chronic obesity hypoventilation syndrome. BiPAP has been considered but did not offer the best mode of therapy. The Trilogy offers the AVAP-AE mode which will target his tidal volume based on his ideal body weight. The auto-EPAP effectively treats his apneas and provide him with more comfortable pressures than CPAP ( that he could not tolerate in the past) Currently stable, tolerating Trilogy and oxymask at 8 L (2) Chronic diastolic CHF (congestive heart failure) Comment: stable, cont Lasix PO Weights improved since last discharge (3) CKD stage 3 due to type 2 diabetes mellitus Comment: creat at pt's baseline (4) Diabetes Comment: - Last A1c was 7.6 end of January. - Continue Lantus and Lispro SS. (5) DVT prophylaxis Comment: - SQ heparin. Status and Disposition: Swing status
[2017-03-07] MEDS: Insulin GLARGINE(*) 1 UNITS UNIT SUBCUT SCH (17:08)
[2017-03-07] MEDS: Senna TAB PO SCH (21:41)
[2017-03-07] MEDS: Lidocaine PATCH 5%* 1 PATCH TRANSDERM SCH (22:02)
[2017-03-08] MEDS: Albuterol/Ipratropium NEB.SOL* Albuterol 2.5 MG/Ipratropium 0.5 MG 3 ML INH SCH ×4 (01:59→19:41)
[2017-03-08] MEDS: Heparin VIAL(*) 5000 UNITS/ML VIAL (FIVE THOUSAND) SUBCUT SCH ×3 (05:59→22:58)
[2017-03-08] MEDS: Insulin LISPRO* 1 UNITS UNIT SUBCUT SCH ×3 (08:58→18:21)
[2017-03-08] MEDS: Furosemide TAB* 40 MG PO SCH ×2 (08:59→22:50)
[2017-03-08] MEDS: Tamsulosin CAP* 0.4 MG PO SCH (08:59)
[2017-03-08] MEDS: Pregabalin CAP(*) 100 MG PO SCH ×2 (08:59→22:51)
[2017-03-08] MEDS: Finasteride TAB* 5 MG PO SCH (09:00)
[2017-03-08] MEDS: Docusate CAP* 100 MG PO SCH ×2 (09:00→22:49)
[2017-03-08] MEDS: Lidocaine Patch REMOVE* 1 NOTE MISC PATCH OFF SCH (12:31)
[2017-03-08] MEDS: Acetaminophen TAB* 325 MG PO PRN (12:31)
[2017-03-08] MEDS: Insulin GLARGINE(*) 1 UNITS UNIT SUBCUT SCH (18:20)
[2017-03-08] MEDS: Lidocaine PATCH 5%* 1 PATCH TRANSDERM SCH (22:44)
[2017-03-08] MEDS: Senna TAB PO SCH (22:50)
[2017-03-09] MEDS: Albuterol/Ipratropium NEB.SOL* Albuterol 2.5 MG/Ipratropium 0.5 MG 3 ML INH SCH (01:33)
[2017-03-09] MEDS ORDERED: Albuterol/Ipratropium NEB.SOL* Albuterol 2.5 MG/Ipratropium 0.5 MG 3 ML INH PRN (04:27)
[2017-03-09] MEDS: Heparin VIAL(*) 5000 UNITS/ML VIAL (FIVE THOUSAND) SUBCUT SCH ×3 (05:30→23:28)
[2017-03-09] MEDS: Furosemide TAB* 40 MG PO SCH ×2 (09:08→23:31)
[2017-03-09] MEDS: Tamsulosin CAP* 0.4 MG PO SCH (09:08)
[2017-03-09] MEDS: Pregabalin CAP(*) 100 MG PO SCH ×2 (09:08→23:30)
[2017-03-09] MEDS: Docusate CAP* 100 MG PO SCH ×2 (09:08→23:31)
[2017-03-09] MEDS: Finasteride TAB* 5 MG PO SCH (09:08)
[2017-03-09] MEDS: Insulin LISPRO* 1 UNITS UNIT SUBCUT SCH ×3 (09:11→17:10)
[2017-03-09] MEDS: Lidocaine Patch REMOVE* 1 NOTE MISC PATCH OFF SCH ×2 (12:11→12:50)
[2017-03-09] MEDS: Insulin GLARGINE(*) 1 UNITS UNIT SUBCUT SCH (17:11)
[2017-03-09] MEDS: Lidocaine PATCH 5%* 1 PATCH TRANSDERM SCH (23:25)
[2017-03-09] MEDS: Senna TAB PO SCH (23:31)
[2017-03-10] MEDS: Heparin VIAL(*) 5000 UNITS/ML VIAL (FIVE THOUSAND) SUBCUT SCH ×3 (06:34→21:49)
[2017-03-10] MEDS: Acetaminophen TAB* 325 MG PO PRN (07:46)
[2017-03-10] MEDS: oxyCODONE TAB* 5 MG TAB PO PRN ×3 (08:53→18:01)
[2017-03-10] MEDS: Tamsulosin CAP* 0.4 MG PO SCH (08:54)
[2017-03-10] MEDS: Docusate CAP* 100 MG PO SCH ×2 (08:54→21:46)
[2017-03-10] MEDS: Finasteride TAB* 5 MG PO SCH (08:54)
[2017-03-10] MEDS: Furosemide TAB* 40 MG PO SCH ×2 (08:55→21:44)
[2017-03-10] MEDS: Pregabalin CAP(*) 100 MG PO SCH ×2 (08:56→21:44)
[2017-03-10] MEDS: Insulin LISPRO* 1 UNITS UNIT SUBCUT SCH ×3 (08:58→18:00)
[2017-03-10] MEDS: Lidocaine Patch REMOVE* 1 NOTE MISC PATCH OFF SCH (09:02)
[2017-03-10] MEDS: Magnesium CITRATE* 300 ML BTL PO ONE ×2 (13:02→16:35)
--- NOTE | 2017-03-10 15:31 | DS ---
CC: Dr. Samayoa; [facility] in [place]; Dr. Lazaro DISCHARGE SUMMARY: DATE OF ADMISSION: 03/06/17 DATE OF DISCHARGE: Transferred to [facility] on 03/10/17. PRIMARY CARE PROVIDER: Dr. Samayoa. DISCHARGE DIAGNOSIS: Chronic respiratory failure due to obesity hypoventilation syndrome. SECONDARY DIAGNOSES: 1. History of chronic congestive heart failure, diastolic. 2. Diabetes type 2. 3. Morbid obesity with body mass index above 50. 4. Coronary artery disease. 5. Hypertension. 6. Obstructive sleep apnea. 7. Peripheral neuropathy. 8. Chronic bilateral lower extremity lymphedema. 9. Super morbid obesity. 10. History of rotator cuff injury in bilateral shoulders and osteoarthritis in bilateral knees. 11. Chronic kidney disease stage 3. MEDICATIONS AT DISCHARGE: Include: 1. Coenzyme Q10 200 mg daily. 2. Niacin 500 mg daily. 3. Glucosamine 1 tablet b.i.d. 4. Multivitamin 1 tablet daily. 5. Acetaminophen 650 mg every 6 hours on a p.r.n. basis. 6. Nebulizer treatments 4 times a day. 7. Norvasc 2.5 mg daily. 8. Vitamin C 500 mg daily. 9. Dulcolax suppository 10 mg daily p.r.n. rectally. 10. Colace 100 mg b.i.d. 11. Proscar 5 mg daily. 12. Lasix 80 mg daily and 40 mg at bedtime. 13. Insulin Lantus 45 units subcutaneously daily. 14. Lidoderm patch 2 patches transdermally applied to affected areas daily. 15. Milk of magnesia 30 mL every 6 hours p.r.n. 16. Metformin 500 mg b.i.d. 17. Nabumetone 750 mg b.i.d. 18. [place]-3 fatty acids 1200 mg daily. 19. Lyrica 600 mg b.i.d. 20. Nasal spray with saline 1 spray both nostrils every 4 hours for dryness. 21. Flomax 0.4 mg daily. 22. Vitamin B complex 1 capsule daily. 23. Vitamin E 400 units daily. 24. Oxycodone 5 mg every 6 hours p.r.n. LABORATORY DATA AND STUDIES PERFORMED DURING THE HOSPITAL STAY: On 03/05/17, white blood cell count of 14.1, hemoglobin of 8.2, hematocrit of 26, and platelets of 376. On 03/07/17, sodium of 130, potassium 4.0, chloride 82, carbon dioxide 42, BUN 55, creatinine 1.18. HOSPITALIZATION COURSE: Please refer to discharge summary dictated on 03/05/17 for details of the patient's 10-day acute hospitalization for acute respiratory failure and congestive heart failure. Shortly, the patient was at our facility for acute respiratory failure and congestive heart failure for 10 days. Eventually, it was noted that the patient 's chronic obesity hypoventilation syndrome is very severe and after discussion with a dragger, the patient was a good candidate for trilogy ventilatory support. The patient was discharged on 8 L of oxygen via oxymask as well as Trilogy ventilatory system to be used whenever the patient is resting or sleeping. The patient was originally discharged on 03/05/17 to [facility]. There, family was very de-satisfied with the patient's care. Apparently, the patient's oxymask fell off the bed and he did not have it reapplied until 2 or 3 hours later. At this point, the patient was readmitted to the hospital on 03/06/17 in a swing bed status. For the remaining couple of days of the patient's hospital stay, the patient did well. He complained of joint pains in his left knee, had an x-ray showing moderate to advanced degenerative changes, swollen joint effusion. He also had a Doppler study which showed no evidence of DVT in the left lower extremity. The patient does reasonably well throughout his hospital stay. His immobility persisted, although he started getting physical therapy and with physical therapy getting out of bed. He continued to use most of the time oxymask at 8 L and Trilogy for sleeping with good results. manifold operator were involved in the patient's care and recommended [facility] for further placement. [facility] accepted the patient on 03/10/17 and he is going to be transferred there for further rehabilitation. At discharge, the patient is recommended to continue cardiac and diabetic diet. There is no ambulatory restrictions at discharge. PHYSICAL EXAMINATION: At the time of discharge; blood pressure of 150/60, heart rate of 74 and regular, respiratory rate 20, oxygen saturation 95% on 8 L of oxymask, and temperature of 98.7. General: The patient is a very pleasant 71-year- old male who is in no acute distress. The patient is alert and oriented x3. His BMI is 48 and his current weight was documented at 395 pounds. HEENT: Head is atraumatic, normocephalic. Eyes: Pupils equal and reactive to light and accommodation. Oropharynx clear. Mucosa moist. Neck: Supple. No JVD. No bruits bilaterally. Cardiovascular: Regular rate and rhythm. No murmurs. Respiratory: Clear to auscultation bilaterally. Abdomen: Soft and nontender. Bowel sounds present in all 4 quadrants. Extremities: Notable for bilateral nonpitting pedal edema with venous stasis changes and discoloration in bilateral lower extremities. No evidence of cellulitis. Neuro Evaluation: Cranial nerves II through XII grossly intact. Motor strength is 5/5 bilaterally. Noted generalized deconditioning and problem with range of motion in bilateral shoulders and bilateral knees due to severe osteoarthritis. Please note this is a short summary of the patient's hospitalization. Please refer to further medical records for details. At discharge, the patient also recommended to have a CBC and basic metabolic panel drawn in 4 to 5 days. The patient does have history of chronic hypercapnia and chronic kidney disease. TIME SPENT: Approximately 45 minutes was spent on the patient's transfer. [id number]/[facility] #: [id number] [facility]
[2017-03-10] MEDS: Insulin GLARGINE(*) 1 UNITS UNIT SUBCUT SCH (18:01)
[2017-03-10] MEDS: Senna TAB PO SCH (21:46)
[2017-03-10] MEDS: Lidocaine PATCH 5%* 1 PATCH TRANSDERM SCH (21:49)
[2017-03-11] MEDS: oxyCODONE TAB* 5 MG TAB PO PRN ×2 (05:04→09:43)
[2017-03-11] MEDS: Heparin VIAL(*) 5000 UNITS/ML VIAL (FIVE THOUSAND) SUBCUT SCH (05:05)
[2017-03-11 07:27] VITALS: BP 146/69
[2017-03-11] MEDS: Insulin LISPRO* 1 UNITS UNIT SUBCUT SCH (09:36)
[2017-03-11] MEDS: Docusate CAP* 100 MG PO SCH (09:37)
[2017-03-11] MEDS: Finasteride TAB* 5 MG PO SCH (09:38)
[2017-03-11] MEDS: Tamsulosin CAP* 0.4 MG PO SCH (09:38)
[2017-03-11] MEDS: Pregabalin CAP(*) 100 MG PO SCH (09:38)
[2017-03-11] MEDS: Furosemide TAB* 40 MG PO SCH (09:38)
[2017-03-11] MEDS: Lidocaine Patch REMOVE* 1 NOTE MISC PATCH OFF SCH (09:39)
== END 2017-03-11 10:40 | DRG 206 ==
LOC: ED 14:01 → MED 15:58 → OBSVTOIN 16:30 → INTOOBSV 03-07 11:01 → OBSVTOIN 03-07 11:01
PROVIDERS: ADMIT Internal Medicine; ATTEND Internal Medicine
PROC: 5A09457 Assistance with Respiratory Ventilation, 24-96 Consecutive Hours, Continuous Positive Airway Pressure (ICD-10-PCS; principal; 2017-03-07)
DX: E66.2 Morbid (severe) obesity with alveolar hypoventilation (principal); J96.11 Chronic respiratory failure with hypoxia; E11.22 Type 2 diabetes mellitus with diabetic chronic kidney disease; I13.0 Hypertensive heart and chronic kidney disease with heart failure and stage 1 through stage 4 chronic kidney disease, or unspecified chronic kidney disease; I50.32 Chronic diastolic (congestive) heart failure; J96.12 Chronic respiratory failure with hypercapnia; Z68.43 Body mass index [BMI] 50.0-59.9, adult; I25.10 Atherosclerotic heart disease of native coronary artery without angina pectoris; E11.51 Type 2 diabetes mellitus with diabetic peripheral angiopathy without gangrene; J44.9 Chronic obstructive pulmonary disease, unspecified; N40.0 Benign prostatic hyperplasia without lower urinary tract symptoms; H91.90 Unspecified hearing loss, unspecified ear; F41.9 Anxiety disorder, unspecified; F43.10 Post-traumatic stress disorder, unspecified; G58.9 Mononeuropathy, unspecified; R40.2362 Coma scale, best motor response, obeys commands, at arrival to emergency department; R40.2252 Coma scale, best verbal response, oriented, at arrival to emergency department; R40.2142 Coma scale, eyes open, spontaneous, at arrival to emergency department; E11.42 Type 2 diabetes mellitus with diabetic polyneuropathy; I87.2 Venous insufficiency (chronic) (peripheral); G89.29 Other chronic pain; N18.3 Chronic kidney disease, stage 3 (moderate); M17.0 Bilateral primary osteoarthritis of knee; I89.0 Lymphedema, not elsewhere classified; Z79.4 Long term (current) use of insulin; Z99.81 Dependence on supplemental oxygen; Z88.8 Allergy status to other drugs, medicaments and biological substances; I25.2 Old myocardial infarction; Z86.718 Personal history of other venous thrombosis and embolism; Z82.49 Family history of ischemic heart disease and other diseases of the circulatory system; Z83.3 Family history of diabetes mellitus; Z87.891 Personal history of nicotine dependence
CPT/HCPCS: 36415; 80048; 87641; 94640; 94660; 94760; A9270-GY; J1644

== ENCOUNTER 2019-02-06 08:28 | Day surgery (SDC) | payer MEDICARE, MEDICAID ==
[~2019-02-06 08:28] MED LIST: Acetaminophen TAB* 325 MG PO PRN; Midazolam* 1 MG/ML 5 ML VIAL (5 MG) ONE; fentaNYL* 50 MCG/ML 2 ML VIAL (100 MCG VIAL) ONE
[2019-02-06 10:36] VITALS: BP 174/72
--- NOTE | 2019-02-06 11:06 | OP ---
DATE OF OPERATION: 02/06/19 - LOCATED WITHIN [facility] DATE OF : 45 SURGEON: Rgio Barr MD. ANESTHESIA: Monitored anesthesia care. PREOPERATIVE DIAGNOSIS: Cataract, right eye. POSTOPERATIVE DIAGNOSIS: Cataract, right eye. OPERATIVE PROCEDURE: Extracapsular cataract extraction of the right eye with intraocular lens implant. IMPLANT: SN60WF 24.5 diopter lens to the right eye. COMPLICATIONS: None. DESCRIPTION OF PROCEDURE: The patient was given phenylephrine 2.5 % and cyclopentolate 1% eye drops to the operative eye in the preoperative area. The patient was taken to the operating room, where a time-out was taken to identify the correct patient, site and side of surgery. The patient's right eye was prepped and draped in the usual sterile fashion with 5% Betadine. A second time -out was taken to verify the correct patient, side and site of surgery as well as the correct lens flexion. A lid speculum was placed to the right eye. A 1 mm paracentesis blade was used to make a clear corneal incision. Preservative- free 1% lidocaine was then injected into the anterior chamber. DisCoVisc was then injected into the anterior chamber. A 2.75 mm keratome blade was then used to make a triplanar incision. A Malyugin ring was then inserted due to poor pupil dilation. A cystotome initiated a capsulorrhexis, which was completed with Utrata forceps in a continuous and curvilinear manner. Hydrodissection of the lens was performed with BSS on a cannula. The lens could be spun in a capsular bag. The phacoemulsification handpiece was used with a [id number] technique to remove the nucleus. The I/A handpiece then removed the residual cortical lens material. DisCoVisc was then injected to inflate the capsular bag. The planned SN60WF 24.5 diopter lens was then injected into the capsular bag. The Malyugin ring was then removed from the anterior chamber. The residual DisCoVisc was then removed from the eye with the I/A handpiece. The corneal incisions were hydrated and no leaks occurred at physiologic pressure around 20 mmHg per palpation. The lid speculum was removed and drapes were removed. Maxitrol ointment was placed to the surface of the operative eye. An adhesive patch and shield was then placed on the operative eye. The patient was taken to the postoperative area in stable condition. [id number]/[facility] #: [id number] ROBERT
[2019-02-06] MEDS ORDERED: Tetracaine 0.5% OPTH.SOL 4 ML* 1 DROP BTL ONE (13:30)
[2019-02-06] MEDS ORDERED: Cyclopentolate 1% OPTH.SOL* 2 ML BTL ONE (13:30)
[2019-02-06] MEDS ORDERED: Neomycin/Polymy/Dex OPHTH.OIN* 3.5 GM ONE (13:30)
[2019-02-06] MEDS ORDERED: Lidocaine 1% MPF ** 5 ML VIAL ONE (13:30)
[2019-02-06] MEDS ORDERED: Tropicamide 1% OPTH.SOL* BTL ONE (13:30)
[2019-02-06] MEDS ORDERED: Povidone Iodine 5% OPTH* 30 ML BTL ONE (13:30)
[2019-02-06] MEDS ORDERED: Phenylephrine OPHTH SOL 2.5%* 2 ML ONE (13:30)
[2019-02-06] MEDS ORDERED: acetaZOLAMIDE TAB* 250 MG ONE (13:30)
[2019-02-06] MEDS ORDERED: Ketorolac 0.5% OPHTH (NF) 0.5 % 5 ML BTL ONE (13:30)
== END 2019-02-06 10:45 | disposition home or self-care (01) ==
LOC: OREAST 08:28
PROVIDERS: ATTEND Student in an Organized Health Care Education/Training Program
DX: H25.811 Combined forms of age-related cataract, right eye (principal); H21.561 Pupillary abnormality, right eye; E11.9 Type 2 diabetes mellitus without complications; Z79.4 Long term (current) use of insulin; J44.9 Chronic obstructive pulmonary disease, unspecified; G47.33 Obstructive sleep apnea (adult) (pediatric); I10 Essential (primary) hypertension; I50.9 Heart failure, unspecified; Z99.81 Dependence on supplemental oxygen
CPT/HCPCS: A9270-GY; J2250; J3010; V2632

== ENCOUNTER 2019-02-13 08:27 | Day surgery (SDC) | payer MEDICARE, MEDICAID ==
[2019-02-13] MEDS ORDERED: Tetracaine 0.5% OPTH.SOL 4 ML* 1 DROP BTL ONE (09:32)
[2019-02-13] MEDS ORDERED: Phenylephrine OPHTH SOL 2.5%* 2 ML ONE (09:32)
[2019-02-13] MEDS ORDERED: Lidocaine 1% MPF ** 5 ML VIAL ONE (09:32)
[2019-02-13] MEDS ORDERED: Neomycin/Polymy/Dex OPHTH.OIN* 3.5 GM ONE (09:32)
[2019-02-13] MEDS ORDERED: Povidone Iodine 5% OPTH* 30 ML BTL ONE (09:32)
[2019-02-13] MEDS ORDERED: Tropicamide 1% OPTH.SOL* BTL ONE (09:32)
[2019-02-13] MEDS ORDERED: Cyclopentolate 1% OPTH.SOL* 2 ML BTL ONE (09:32)
[2019-02-13] MEDS ORDERED: Ketorolac 0.5% OPHTH (NF) 0.5 % 5 ML BTL ONE (09:32)
[2019-02-13] MEDS ORDERED: Lidocaine 2% PF * 5 ML VIAL ONE (10:16)
[2019-02-13] MEDS ORDERED: Propofol* 10 MG/ML 20 ML BTL ONE (10:16)
[2019-02-13 11:08] VITALS: BP 161/71
--- NOTE | 2019-02-13 11:32 | OP ---
OPERATIVE REPORT: DATE OF OPERATION: 02/13/19 DATE OF : 45 SURGEON: Rigo Barr MD ANESTHESIA: Monitored anesthesia care. PREOPERATIVE DIAGNOSIS: Cataract, left eye. POSTOPERATIVE DIAGNOSIS: Cataract, left eye with floppy iris syndrome. OPERATIVE PROCEDURE: Extracapsular cataract extraction of the left eye with intraocular lens implant. IMPLANT: SN60WF 23.5 diopter lens to the left eye. COMPLICATIONS: None. DESCRIPTION OF PROCEDURE: The patient was given phenylephrine 2.5 % and cyclopentolate 1% eye drops to the operative eye in the preoperative area. The patient was taken to the operating room where a time-out was taken to identify the correct patient, site, and side of surgery. The patient's left eye was prepped and draped in the usual sterile fashion with 5% Betadine. A second time -out was taken to verify the correct patient, site, and side of surgery and correct lens selection. A lid speculum was placed to the left eye. A 1 mm paracentesis blade was used to make a clear corneal incision. Preservative- free 1% lidocaine was injected into the anterior chamber. DisCoVisc was then injected into the anterior chamber. A 2.75 mm keratome blade was used to make a triplanar incision. A Malyugin ring was then inserted due to poor pupil dilation and floppy iris syndrome. A cystotome initiated a capsulorrhexis, which was completed with Utrata forceps in a continuous and curvilinear manner. Hydrodissection of the lens was performed with BSS on a cannula. The lens could be spun in a capsular bag. The phacoemulsification handpiece was used with a [id number] technique to remove the nucleus. The I/A handpiece then removed with the residual cortical lens material. DisCoVisc was then injected to inflate the capsular bag. The planned SN60WF 23.5 diopter lens was injected into the capsular bag. The Malyugin ring was then removed from the anterior chamber. The residual DisCoVisc was removed from the eye with the I/A handpiece. The corneal incisions were hydrated and no leaks occurred at physiologic pressure around 20 mmHg per palpation. The lid speculum was removed and drapes were removed. Maxitrol ointment was placed to the surface of the operative eye. An adhesive patch and shield was then placed on the operative eye. The patient was taken to the postoperative area in stable condition. [id number]/[facility] #: [id number] MTDRenee
== END 2019-02-13 11:20 | disposition home or self-care (01) ==
LOC: OREAST 08:27
PROVIDERS: ATTEND Student in an Organized Health Care Education/Training Program
DX: H25.812 Combined forms of age-related cataract, left eye (principal); H21.81 Floppy iris syndrome; E11.9 Type 2 diabetes mellitus without complications; Z79.4 Long term (current) use of insulin; I25.10 Atherosclerotic heart disease of native coronary artery without angina pectoris; G47.33 Obstructive sleep apnea (adult) (pediatric); I10 Essential (primary) hypertension; M19.90 Unspecified osteoarthritis, unspecified site; Z87.891 Personal history of nicotine dependence; J44.9 Chronic obstructive pulmonary disease, unspecified; Z99.81 Dependence on supplemental oxygen
CPT/HCPCS: A9270-GY; J2704; V2632

== ENCOUNTER 2019-04-01 17:16 | Inpatient (IN) | payer MEDICARE, MEDICAID ==
--- NOTE | 2019-04-01 17:34 | ED ---
Altered Mental Status - HPI Summary HPI Summary: 73 year old M brought in by ambulance to [facility] from [facility] in [place] with a chief complaint of altered mental status since this morning. The patient rates the pain 0/10 in severity. Symptoms aggravated by nothing. Symptoms alleviated by nothing. Per EMS, senior care staff state that patient is lethargic and had tarry stool and that yesterday, patient was talking, behaving, and acting normally. LEVEL 5 CAVEAT: HPI is limited because patient is obtunded, lethargic, and unable to answer questions - History Of Current Complaint Chief Complaint: EDAltMentalStatus Stated Complaint: GI BLEED PER EMS Time Seen by Provider: 04/01/19 17:29 Hx Obtained From: EMS Onset/Duration: Still Present Timing: Constant Severity Currently: None Character: Lethargy Aggravating Factor(s): Nothing Alleviating Factor(s): Nothing - Allergies/Home Medications Allergies/Adverse Reactions: Allergies Allergy/AdvReac Type Severity Reaction Status Date / Time antihistamines AdvReac Intermediate Urinary Uncoded 02/13/19 08:58 Retention PMH/Surg Hx/FS Hx/Imm Hx Endocrine/Hematology History: Reports: Hx Diabetes - DMII Denies: Hx Anticoagulant Therapy, Hx Blood Disorders, Hx Blood Transfusions, Hx Bone Marrow Disease, Hx Systemic Lupus Erythematosus, Hx Sickle Cell Disease , Hx Thyroid Disease, Hx Anemia, Hx Unexplained Bleeding, Other Endocrine/ Hematological Disorders Cardiovascular History: Reports: Hx Angina, Hx Cardiac Arrest, Hx Congestive Heart Failure, Hx Coronary Artery Disease, Hx Deep Vein Thrombosis, Hx Hypertension - on meds, Hx Myocardial Infarction - "mild [place]" secondary to DVT, Hx Peripheral Vascular Disease Denies: Hx Aneurysm, Hx Angioplasty, Hx Auto Implanted Cardiovert Defib, Hx Cardiomegaly, Hx Congenital Heart Disease, Hx Embolism, Hx Hypercholesterolemia , Hx Hypotension, Hx Pacemaker/ICD, Hx Rheumatic Fever, Hx Syncope, Hx Valvular Heart Disease, Other Cardiovascular Problems/Disorders Respiratory History: Reports: Hx Chronic Obstructive Pulmonary Disease (COPD), Hx Pneumonia, Hx Sleep Apnea, Other Respiratory Problems/Disorders - trilogy machine at night and o2 Denies: Hx Asthma, Hx Chronic Bronchitis, Hx Cystic Fibrosis, Hx Lung Cancer , Hx Pleural Effusion, Hx Pulmonary Edema, Hx Pulmonary Embolism, Hx Seasonal Allergies GI History: Denies: Hx Cirrhosis, Hx Crohn's Disease, Hx Diverticulosis, Hx Gall Bladder Disease, Hx Gastroesophageal Reflux Disease, Hx Gastrointestinal Bleed, Hx Hiatal Hernia, Hx Irritable Bowel, Hx Jaundice, Hx Obstructive Bowel, Hx Ileostomy, Hx Pyloric Stenosis, Hx Ulcer, Other GI Disorders History: Reports: Hx Benign Prostatic Hyperplasia, Other Problems/ Disorders - prostate surgery Denies: Hx Acute Renal Failure, Hx Chronic Renal Failure, Hx Dialysis, Hx Kidney Infection, Hx Kidney Stones Musculoskeletal History: Reports: Hx Arthritis - knees, Hx Back Problems Denies: Hx Bursitis, Hx Congenital Bone Abnormalities, Hx Fibromyalgia, Hx Gout, Hx Orthopedic Injury, Hx Osteoporosis, Hx Scoliosis, Hx Tendonitis Sensory History: Reports: Hx Cataracts - karina, Hx Contacts or Glasses - glasses, Hx Hearing Problem, Other Sensory Impairments - severe neuropathy Denies: Hx Eye Injury, Hx Eye Prosthesis, Hx Glaucoma, Hx Legally Blind, Hx Macular Degeneration, Hx Vision Problem, Hx Deafness, Hx Hearing Aid Opthamlomology History: Reports: Hx Cataracts - karina, Hx Contacts or Glasses - glasses, Other Sensory Impairments - severe neuropathy Denies: Hx Eye Injury, Hx Eye Prosthesis, Hx Glaucoma, Hx Legally Blind, Hx Macular Degeneration, Hx Vision Problem Neurological History: Reports: Hx Nerve Disease - neuropathy- diabetes Denies: Hx Dementia, Hx Developmental Delay, Hx Headaches, Hx Migraine, Hx Seizures, Hx Spinal Cord Injury, Hx Transient Ischemic Attacks (TIA), Other Neuro Impairments/Disorders Psychiatric History: Reports: Hx Anxiety, Hx Post Traumatic Stress Disorder Denies: Hx Attention Deficit Hyperactivity Disorder, Hx Eating Disorder, Hx Depression, Hx Panic Disorder, Hx Inpatient Treatment, Hx Community Mental Health Tx, Hx Schizophrenia, Hx Bipolar Disorder, Hx Suicide Attempt, Hx of Violent Episodes Against Others, Hx Substance Abuse, Other Psychiatric Issues/ Disorders - Cancer History Hx Chemotherapy: No Hx Radiation Therapy: No Hx Palliative Cancer Treatment: No - Surgical History Surgery Procedure, Year, and Place: Rotator cuff repair 2010, left. Laminectomy 2000, [place]. L[place] 2000, [place]. adenoidectomy as a child Hx Anesthesia Reactions: No Infectious Disease History: No Infectious Disease History: Denies: Hx Hepatitis, Hx Tuberculosis, Traveled Outside the [place] in Last 30 Days - Family History Known Family History: Positive: Cardiac Disease, Hypertension, Diabetes - Social History Alcohol Use: None Hx Substance Use: No Substance Use Type: Reports: None Hx Tobacco Use: Yes Smoking Status (MU): Former Smoker Amount Used/How Often: 3 packs a day for 17 yrs Review of Systems Positive: Other - tarry stool Neurological: Other - lethargic, AMS All Other Systems Reviewed And Are Negative: Yes Physical Exam - Summary Physical Exam Summary: VITAL SIGNS: Reviewed. GENERAL: Patient is an obese MALE who is lying comfortable in the stretcher. Patient is not in any acute respiratory distress. HEAD AND FACE: No signs of trauma. No ecchymosis, hematomas or skull depressions. No sinus tenderness. EYES: PERRLA, EOMI x 2, No injected conjunctiva, no nystagmus. EARS: Hearing grossly intact. Ear canals and tympanic membranes are within normal limits. MOUTH: Oral mucosa dry NECK: Supple, trachea is midline, no adenopathy, no JVD, no carotid bruit, no c- spine tenderness, neck with full ROM. CHEST: Symmetric, no tenderness at palpation. LUNGS: Bilateral crackles in bases of the lungs CVS: Regular rate and rhythm, S1 and S2 present, no murmurs or gallops appreciated. ABDOMEN: Soft, non-tender. No signs of distention. No rebound, no guarding, and no masses palpated. Abdomen has increased bowel sounds EXTREMITIES: FROM in all major joints, no edema, no cyanosis or clubbing. NEURO: Patient is obtunded, lethargic, and unable to answer questions SKIN: Dry and warm. Rectal exam chaperoned by Magy RN: Patient has tarry stool Triage Information Reviewed: Yes Vital Signs On Initial Exam: Initial Vitals Temp Pulse Resp BP Pulse Ox 97.7 F 64 20 137/117 95 04/01/19 17:21 04/01/19 17:21 04/01/19 17:21 04/01/19 17:21 04/01/19 17:21 Vital Signs Reviewed: Yes Diagnostics - Vital Signs Vital Signs Temp Pulse Resp BP Pulse Ox 04/01/19 17:21 97.7 F 64 20 137/117 95 - Laboratory Result Diagrams: 04/01/19 17:57 04/01/19 17:57 Lab Statement: Any lab studies that have been ordered have been reviewed, and results considered in the medical decision making process. - Radiology Chest x-ray Radiology Interpretation Completed By: ED Physician Summary of Radiographic Findings: Possible infiltrate in the right lower lung. Cardiomegaly. Pending official report. - EKG 1811 Cardiac Rate: NL - 76 BPM EKG Rhythm: Sinus Rhythm Summary of EKG Findings: Sinus rhythm 76 BPM, no ST elevations, no change from Altered Mental Statu Course/Dx - Course Assessment/Plan: 73 year old M brought in by ambulance to [facility] from [facility] in [place] with a chief complaint of altered mental status since this morning. The patient rates the pain 0/10 in severity. Symptoms aggravated by nothing. Symptoms alleviated by nothing. Per EMS, senior care staff state that patient is lethargic and had tarry stool and that yesterday, patient was talking, behaving, and acting normally. LEVEL 5 CAVEAT: HPI is limited because patient is obtunded, lethargic, and unable to answer questions. In the ED course, the patient was placed on a breast surgeon, 2 IV acesses were obtained , IV fluids were started. EKG is normal sinus rhythm without any significant elevations. And blood work without any significant abnormality except for WBC 12.2, RBC 2.67, hemoglobin 6.9, hematocrit 21, platelets 304. BUN is 57 creatinine is 1.57, glucose 255, lactic acid is 2.3, CRP of 10.7,and troponin is 0.01. Alli is positive. At this point, I ordered 2 units of packed red blood cells for Transfusion. Patient also was given Protonix 80 mg IV. I discussed the case with Dr. David from and he would consult for this patient. He recommends admission to the hospitalist. I also discussed my physical exam and findings with Dr. Montenegro from the hospital services who accepted the patient for admission. The patient continues to be lethargic but arousable, the patient is maintaining his airway and he is hemodynamically stable. Chest x-ray shows a right lower lobe infiltrate therefore the patient was given Rocephin. - Diagnoses Provider Diagnoses: GI bleed, Acute renal failure, Dehydration, Pneumonia - Provider Notifications Discussed Care Of Patient With: Anuj David Time Discussed With Above Provider: 18:33 Instructed by Provider To: Other - Dr. David, , recommends admission to hospitalist. Spoke with Dr. Montenegro, hospitalist, agrees to admit patient at 18: 35. - Critical Care Time Critical Care Time: 30-74 min Discharge ED - Sign-Out/Discharge Documenting (check all that apply): Patient Departure - Admit Patient Received Moderate/Deep Sedation with Procedure: No - Discharge Plan Condition: Guarded Disposition: ADMITTED TO [facility] Referrals: Yao HSU,Aiden Hopson [Medical Doctor] - - Billing Disposition and Condition Condition: GUARDED Disposition: Admitted to [facility] - Attestation Statements Document Initiated by Scribe: Yes Documenting Scribe: Maria Luisa Garces Provider For Whom Scribe is Documenting (Include Credential): Ok Starr MD Scribe Attestation: Maria Luisa Mirza, scribed for Ok Starr MD on 04/01/19 at 1856. Scribe Documentation Reviewed: Yes Provider Attestation: The documentation as recorded by the Maria Luisa sherman accurately reflects the service I personally performed and the decisions made by Ok catalan MD Status of Scribe Document: Viewed
[2019-04-01] MEDS ORDERED: NS 0.9% 1000 ML** 1,000 ML IV ONE (17:37)
[2019-04-01 18:08] LABS: ABS Basophils 0.1 10^3/ul (0-0.2); ABS Eosinophils 0.1 10^3/ul (0-0.6); ABS Lymphocytes 1.3 10^3/ul (1.0-4.8); ABS Monocytes 0.8 10^3/ul (0-0.8); ABS Neutrophils 9.9 10^3/ul (1.5-7.7); Eosinophil % 1.2 %; Hematocrit 21 % (42-52); Hemoglobin 6.9 g/dL (14.0-18.0); Lymphocyte % 10.4 %; Mean Corpuscular HGB Conc 32 g/dL (31-36); Mean Corpuscular Hemoglobin 26 pg (27-31); Mean Corpuscular Volume 80 fL (80-94); Mean Platelet Volume 8.8 fL (7.4-10.4); Platelet Count 304 10^3/uL (150-450); Red Blood Count 2.67 10^6 /uL (4.18-5.48); Red Cell Distribution Width 15 % (10-15); White Blood Count 12.2 10^3/uL (3.5-10.8)
[2019-04-01 18:18] LABS: INR 0.94 (0.82-1.09)
[2019-04-01 18:24] LABS: Albumin 3.7 g/dL (3.2-5.2); Albumin/Globulin Ratio 1.3 (1-3); BUN/Creatinine Ratio 36.3 (8-20); C Reactive Protein 10.76 mg/L (<8.01); EGFR African American 52.7 (>60); EGFR Non-African American 43.5 (>60); Globulin 2.8 g/dL (2-4); Magnesium 2.4 mg/dL (1.9-2.7); Potassium 3.8 mmol/L (3.5-5.0); Total Bilirubin 0.3 mg/dL (0.2-1.0); Total Protein 6.5 g/dL (6.4-8.9)
[2019-04-01 18:25] LABS: Troponin I 0.01 ng/mL (<0.04)
[2019-04-01] MEDS ORDERED: Pantoprazole IV* 40 MG IV ONE (18:32)
[2019-04-01] MEDS ORDERED: cefTRIAXone(*) 1 GM in NS 0.9% 50 ML* 50 ML IVPB ONE (18:38)
[2019-04-01] MEDS ORDERED: Saline NASAL SPRAY 0.65%* BTL BOTH NARES PRN (19:42)
[2019-04-01] MEDS ORDERED: Bisacodyl EC TAB* 5 MG PO PRN (19:42)
[2019-04-01] MEDS ORDERED: Calcium Carbonate CHEW TAB* 500 MG (TUMS) PO PRN (19:42)
[2019-04-01] MEDS ORDERED: Dextrose 50% VIAL 50 ml IV PUSH PRN (19:51)
[2019-04-01 20:18] LABS: Urine Appearance Clear; Urine Bacteria Absent (Absent); Urine Bilirubin Negative (Negative); Urine Blood Negative (Negative); Urine Color Yellow; Urine Glucose Negative (Negative); Urine Ketones Negative (Negative); Urine Nitrite Negative (Negative); Urine Protein 1+(30 mg/dL) (Negative); Urine Red Blood Cell Trace(0-2/hpf) (Absent); Urine Specific Gravity 1.014 (1.010-1.030); Urine Urobilinogen Negative (Negative); Urine White Blood Cell Trace(0-5/hpf) (Absent)
--- NOTE | 2019-04-01 21:37 | PN ---
Hospitalist Progress Note Date of Service: 04/01/19 Patient reassessed by this script writer and Dr Jacobson. Decision made to only transfuse one unit of PRBC at this time given elevated BP, hx of CHF, and IVF already administered in ED. Repeat H&H ordered for 0200 which will be reviewed by Dr Jacobson. Also decision made to not give PO Lactulose given GI bleed, but instead repeat Ammonia tomorrow and reassess. Patient to be transferred to ICU from ED
[2019-04-01] MEDS: Albuterol/Ipratropium NEB.SOL* Albuterol 2.5 MG/Ipratropium 0.5 MG 3 ML INH SCH (21:50)
[2019-04-01] MEDS: Artificial Tear OPHTH.OINT* 3.5 GM BOTH EYES SCH (22:00)
[2019-04-01] MEDS ORDERED: Heparin VIAL(*) 5000 UNITS/ML VIAL (FIVE THOUSAND) SUBCUT SCH (22:00)
[2019-04-01] MEDS ORDERED: Furosemide IV* 10 MG/ML VIAL (40 MG) IV ONE (22:15)
[2019-04-01] MEDS: Albuterol HFA INHALER* 8 gm MDI INH SCH (22:15)
--- NOTE | 2019-04-01 23:07 | HP ---
HISTORY AND PHYSICAL: DATE OF ADMISSION: 04/01/19. PRIMARY CARE PROVIDER: Provider at [facility]. ATTENDING PHYSICIAN: Dr. Jeanette Jacobson * (dictated by Roger Gregory, CHUCK). CHIEF COMPLAINT: 1. AMS. 2. Tarry stools. HISTORY OF PRESENT ILLNESS: Mr. Ortiz is a 73-year-old male with a past medical history significant for CAD with MN in 2000, no stents, chronic diastolic heart failure, obesity hypoventilation syndrome, on 2 L continuous oxygen and Triology ventilator support at night, chronic hypercapnic respiratory failure, VAMSI, diabetes type 2, hypertension, peripheral neuropathy, chronic bilateral lower extremity venous stasis, morbid obesity; who presented to the emergency room today via EMS due to complaints of altered mental status since this morning. Per EMS retirement staff states that the patient was lethargic and had tarry stools this morning, but yesterday, he was in his normal state of health. HPI from the patient is limited because he is lethargic and obtunded, and unable to answer questions. While in the emergency room, the patient had a chest x-ray, which revealed a possible infiltrate in the right lower lobe and cardiomegaly, but an official report is pending. He had an EKG, which revealed sinus rhythm with no ST elevation or changes. The patient had routine lab work, which revealed leukocytosis of 12.2, normocytic anemia at 6.9 and 22, elevated BUN at 57, and elevated creatinine at 1.57. In addition, the patient has elevated lactic at 3.3. Finally, the patient also has an elevated ammonia at 83. Given these findings, the hospitalists were asked to consult for admission. PAST MEDICAL HISTORY: 1. Coronary artery disease, MN in 2000, no stents. 2. Chronic diastolic heart failure. 3. Obesity hypoventilation syndrome on 2 L continuous nasal cannula and tried Trilogy ventilation support when sleeping or resting. 4. History of chronic hypercapnic respiratory failure. 5. History of obstructive sleep apnea. 6. Diabetes type 2. 7. Hypertension. 8. Peripheral neuropathy. 9. Chronic bilateral lower extremity venous stasis. 10. Morbid obesity. PAST SURGICAL HISTORY: 1. Back surgery. 2. Plastic surgery. 3. Left rotator cuff surgery. HOME MEDICATIONS: 1. Calcium carbonate 1000 mg p.o. q.4 hours p.r.n. 2. Artificial tears 1 drop both eyes t.i.d. 3. Albuterol ipratropium 1 neb inhalation q.i.d. 4. Acetaminophen 500 mg p.o. q.6 hours p.r.n. 5. Saline nasal spray 1 spray both nares q.4 hours p.r.n. 6. Lispro 10 units subcu as directed. 7. Tramadol 50 mg p.o. b.i.d. p.r.n. 8. Nabumetone 1000 mg p.o. b.i.d. 9. Lasix 80 mg p.o. b.i.d. 10. Albuterol 2 puff inhalations b.i.d. 11. Flomax 0.8 mg p.o. daily. 12. Sorbitol 70% p.o. daily. 13. Insulin glargine 82 units subcu q.a.m. 14. Dulcolax 10 mg p.o. daily p.r.n. 15. Fluconazole 1 spray both nares daily. 16. Proscar 5 mg p.o. daily. ALLERGIES: The patient is allergic to ANTIHISTAMINES. FAMILY HISTORY: Obtained from chart review and family due to patient's lethargy. Mother is alive at 99, has a history of colon cancer. Father is . He at age 47 due to MN. No history of diabetes in the family. SOCIAL HISTORY: Obtained from chart review and family due to patient's lethargy. The patient is a former smoker. He quit in 1978. The patine does not drink. The patient does not smoke. The patient resides at [facility]. The patient is wheelchair bound. The patient is . The patient has daughters. The patient's surrogate decision maker will be his , [phone] in the event he cannot make decisions for himself. REVIEW OF SYSTEMS: Review of systems was limited as the patient is lethargic. PHYSICAL EXAMINATION GENERAL: Mr. Ortiz is a 73-year-old male who is morbidly obese. He is sitting in bed. He appears lethargic. VITAL SIGNS: Temp 97.9, HR 74, RR 25, O2 saturation 97% on 2.5 L, BP 168/79. HEENT: PERRLA. Sclerae without icterus. Oral mucosa is moist without lesions. NECK: Supple. No lymphadenopathy. RESPIRATORY: Lungs are clear but diminished. No rhonchi, wheezes or rales. Symmetrical chest expansion. No accessory muscle use. CARDIAC: S1, S2 present. No murmurs, rubs, or gallops. Regular rate and rhythm. ABDOMEN: Abdomen is soft, nontender. Bowel sounds normoactive. EXTREMITIES: Skin is warm and smooth bilaterally. No edema. No clubbing or cyanosis. Pedal pulses 2+ bilaterally. MUSCULOSKELETAL: No pain or deformities. NEURO: The patient is lethargic. He opens his eyes to verbal stimuli and will answer simple yes or no questions intermittently. Unable to perform complete neuro exam as the patient is not following commands. SKIN: Grossly intact. DIAGNOSTIC STUDIES/LAB DATA: WBC 12.2, hemoglobin 6.9, hematocrit 21, platelets 304. Sodium 143, potassium 3.8, chloride 103, carbon dioxide 29, BUN 57, creatinine 1.57. Glucose 255, lactic 3.3, ammonia 83, CRP 10.76. ASSESSMENT AND PLAN: Mr. Ortiz is a 73-year-old male with a past medical history significant for coronary artery disease, CHF, obesity hypoventilation syndrome, chronic hypercapnic respiratory failure, VAMSI, diabetes type 2, hypertension, peripheral neuropathy, chronic bilateral extremity venous stasis, morbid obesity; who presents to the emergency department today due to lethargy and tarry stools. The patient will be admitted to the ICU. 1. Lethargy: The patient is significantly lethargic and his family, and daughter at bedside report this is very different from his baseline. The patient does respond to verbal stimuli, but only answering yes or no questions intermittently. The patient is not following simple commands. The patient's lethargy could be multifactorial given his anemia and positive stool occult. It should be mentioned that Dr. David was contact by the ED provider and recommended the patient be admitted and he will follow up with him tomorrow. The patient's lethargy could also be secondary to infectious process as he does have leukocytosis and there is a possible infiltrate on his chest x-ray. The patient was started on Rocephin here in the emergency department, which we will continue. Unfortunately, they have not obtained urine here in the emergency department. Therefore, I am awaiting urinalysis, which might have a a low yield as this has been obtained after antibiotics were administered. In addition, the patient's lethargy could be due to his elevated ammonia at 83. Although he does not have a history of liver disease. Finally, the patient's lethargy could be secondary to hypoventilation syndrome. Therefore, I have ordered an ABG and I am awaiting those results. 2. Lactic acidosis: The patient has a slightly elevated lactic at 3.3. I have ordered repeat lactics to trend this. The patient has received IV fluid bolus, antibiotics while in the emergency department. To complete this workup, I have ordered blood cultures and I have asked the nurse to obtain urinalysis and urine culture. 3. Elevated BUN and creatinine: The patient has an elevated BUN and creatinine at 57 and 1.57 respectively. This is close to the patient's baseline if compared to the last time he was here in the hospital in 2017, but given his anemia and positive stool occult this could also be due to an upper GI bleed. As mentioned above, the patient was provided with IV fluid bolus and Dr. David was contacted. We will continue an IV PPI. Repeat his BUN and creatinine and monitor. 4. Anemia. The patient's hemoglobin and hematocrit 6.9 and 21, respectively. Once again as mentioned above, there is some concern for GI bleed, as he has a positive stool occult. Dr. David has been contacted. We will continue PPI. The ED physician has also ordered 2 units of packed red blood cells. I have ordered serial H and H q.6 hours. 5. CAD: The patient has a history of CAD with an MN in 2000 but no stents. We will place the patient on tele. The patient is currently denying symptoms, but once again his review of system is limited. His troponin was negative at 0.01, and his EKG was unremarkable with sinus rhythm and no ST abnormalities. 6. Chronic diastolic heart failure: The patient has a history of chronic diastolic heart failure. He is on Lasix 80 mg p.o. daily. His reports back in 2017, he was admitted here to [facility] and they required significant diuresis. She says they took off 65 pounds of fluid. Given this history, I have placed the patient on strict Is and Os, daily weights, and ordered a Villatoro with urometer to be placed. I am going to hold his p.o. Lasix because I suspect he is going to need IV diuresis, especially after receiving 2 units of packed red blood cells. 6. History of hypoventilation syndrome: The patient is currently on 2 L nasal cannula, which is his baseline. I have ordered an ABG. I have ordered respiratory protocol. I have also ordered the patient to have a Trilogy vent at night. 7. Chronic hypercapnic respiratory failure: I have ordered an ABG to further assess this. The patient will be placed in ICU for further monitoring. 9. Obstructive sleep apnea: The patient has been ordered a trilogy vent or comparable. 10. Diabetes: The patient has a history of insulin-dependent diabetes. He is on 80 units of Lantus in the morning at baseline with 10 units subcu as directed. Given his acute illness, I have decreased his Lantus to 50, I have added fingersticks and sliding scale Lispro. 11. Hypertension: The patient is currently mildly hypertensive with the systolic in the 150s. The only blood pressure medication he appears to be on is furosemide, which as mentioned above, I will be holding as he will most likely be receiving IV diuresis. 12. Peripheral neuropathy: Supportive care. 13. Chronic bilateral lower extremity venous stasis: Supportive care. 14. FEN: The patient will be placed n.p.o. given his acute illness. I would recommend a swallow evaluation prior to giving the patient any p.o. food. 15. Code status: The patient is a DNR. 16. DVT prophylaxis: Based on the DVT Risk Assessment, the patient is high risk. DVT prophylaxis in chemical form is contraindicated given his anemia and possible GI bleed. Therefore, I will order SCDs. I would recommend starting chemical prophylaxis as soon as possible as he is at high risk. TIME SPENT: Approximately 70 minutes was spent on this admission, greater than half the time was spent [id number] with the patient and family obtaining my history, performing physical exam, and reviewing my plan of care. This case has been reviewed with my attending, Dr. Lily Jacobson, who is in agreement with my plan of care. Reviewed by ROGER GREGORY NP 04/17/19 @ 2126 [id number]/CPS #: [id number] MTDRenee
[2019-04-02] MEDS: Insulin LISPRO* 1 UNITS UNIT SUBCUT SCH ×4 (00:07→17:25)
[2019-04-02 04:55] LABS: ABS Basophils 0.1 10^3/ul (0-0.2); ABS Eosinophils 0.3 10^3/ul (0-0.6); ABS Lymphocytes 1.5 10^3/ul (1.0-4.8); Eosinophil % 2.7 %; Hematocrit 23 % (42-52); Hemoglobin 7.5 g/dL (14.0-18.0); Lymphocyte % 12.3 %; Mean Corpuscular HGB Conc 33 g/dL (31-36); Mean Corpuscular Hemoglobin 27 pg (27-31); Mean Corpuscular Volume 81 fL (80-94); Mean Platelet Volume 8.5 fL (7.4-10.4); Platelet Count 267 10^3/uL (150-450); Red Blood Count 2.79 10^6 /uL (4.18-5.48); Red Cell Distribution Width 16 % (10-15); White Blood Count 11.9 10^3/uL (3.5-10.8)
[2019-04-02 05:11] LABS: Albumin 3.4 g/dL (3.2-5.2); Albumin/Globulin Ratio 1.4 (1-3); BUN/Creatinine Ratio 36.1 (8-20); Calcium 8.2 mg/dL (8.6-10.3); EGFR African American 56.8 (>60); Globulin 2.5 g/dL (2-4); Potassium 3.5 mmol/L (3.5-5.0); Total Bilirubin 0.3 mg/dL (0.2-1.0); Total Protein 5.9 g/dL (6.4-8.9)
[2019-04-02] MEDS: Albuterol HFA INHALER* 8 gm MDI INH SCH ×2 (07:33→19:15)
[2019-04-02 08:28] LABS: Hematocrit 22 % (42-52); Hemoglobin 7.3 g/dL (14.0-18.0)
[2019-04-02] MEDS ORDERED: Finasteride TAB* 5 MG PO SCH (09:00)
[2019-04-02] MEDS ORDERED: Albuterol/Ipratropium NEB.SOL* Albuterol 2.5 MG/Ipratropium 0.5 MG 3 ML INH PRN (09:02)
[2019-04-02] MEDS: Albuterol/Ipratropium NEB.SOL* Albuterol 2.5 MG/Ipratropium 0.5 MG 3 ML INH SCH (09:08)
[2019-04-02] MEDS ORDERED: Perflutren Lipid Microsphere* 3 ML VIAL ONE (09:14)
--- NOTE | 2019-04-02 10:06 | ECHO ---
*[facility]* [place] [address] Fax #: [phone] Transthoracic Echocardiogram Patient: Jesus Ortiz : 1945 Study Date: 04/02/2019 Age: 73 Gender: M HR: 68 bpm Height: 76 in /193 cm BSA: 2.86 m^2 Weight: 365.2 lb /166 kg BMI: 44.6 kg/m^2 *Culinary Art Teacher: * Elvi Toledo RDCS RN *Referring Physician: * Riddhi Collier *Reading Physician: * Slim Basilio MD Indications: SOB. History: Coronary artery disease. NM. Congestive heart failure. Obstructive sleep apnea. Risk factors: Former tobacco use. Hypertension. Diabetes mellitus. Morbidly obese. Conclusions Summary: - Impressions: The study is similar to the previous study except that the ejection fraction has improved from 50-55% then and the mildly dilated ascending aorta noted last time was not confirmed this time.. - Left ventricle: Systolic function is normal. The estimated ejection fraction is 60-65%. Systolic function is improved from the previous study. Doppler parameters are consistent with abnormal left ventricular relaxation (grade 1 diastolic dysfunction). - Right ventricle: The cavity size is mildly to moderately dilated. Wall thickness is moderately increased. Systolic function is normal. - Left atrium: The atrium is moderately to severely dilated. - Right atrium: The atrium is moderately to severely dilated. - Aortic valve: The findings are consistent with mild stenosis. Study data: Transthoracic echocardiogram. Procedure: Transthoracic echocardiography was performed. The study was technically limited due to restricted patient mobility, body habitus, and smoking history. Intravenous Definity 3.5 ml was administered to enhance imaging. Complete 2D, spectral Doppler, and color flow Doppler. Location: ICU Patient status: Inpatient. Patient room number: ICU 2. The previous study was not available, so comparison is made to the report of January 2017. Rhythm: Normal sinus rhythm with PAC's. Findings Left ventricle: The cavity size is normal. Wall thickness is moderately increased. Systolic function is normal. The estimated ejection fraction is 60-65%. Systolic function is improved from the previous study. Wall motion is normal; there are no regional wall motion abnormalities. Doppler parameters are consistent with abnormal left ventricular relaxation (grade 1 diastolic dysfunction). Right ventricle: The cavity size is mildly to moderately dilated. Wall thickness is moderately increased. Systolic function is normal. Left atrium: The atrium is moderately to severely dilated. Right atrium: The atrium is moderately to severely dilated. Mitral valve: The leaflets are mildly thickened. There is no evidence of stenosis. There is no significant regurgitation. Aortic valve: Not well visualized. The leaflets are mildly thickened. The findings are consistent with mild stenosis. There is no significant regurgitation. Tricuspid valve: The valve is structurally normal. There is no evidence of stenosis. There is trace regurgitation. Pulmonic valve: Not well visualized. There is no significant regurgitation. Aorta: Aortic root: The aortic root is not dilated. Ascending aorta: The ascending aorta is not dilated. Aortic arch: The aortic arch is not visualized. Pericardium: There is no significant pericardial effusion. Pulmonary arteries: Not visualized. Systolic pressure can not be accurately estimated. Systemic veins: Inferior vena cava: Not visualized. Measurements Left ventricle Value Ref Right atrium Value Ref NATACHA, LAX 5.0 cm 4.2 - 5.8 ML dim, ES, A4C (H) 4.5 cm 2.6 - 4.4 ESD, LAX 2.9 cm 2.5 - 4.0 SI dim, ES, A4C (H) 6.9 cm 3.4 - 5.3 FS, LAX 43 % 25 - 43 Estimated RAP 8 mm Hg --------- PW, ED (H) 1.5 cm 0.6 - 1.0 IVS/PW, ED 1.08 Aortic valve Value Ref E', lat emily, TDI (L) 9.6 cm/sec >=10.0 Emily diam, ED 2.6 cm --- ------ E/e', lat emily, 9 Emily diam/bsa, ED 0.9 cm/m^2 ------ --- TDI Peak v, S 2.1 m/sec --------- E', med emily, TDI 8.4 cm/sec >=7.0 VTI, S 47.4 cm --- ------ E/e', med emily, 10 Mean grad, S 11.0 mm Hg ------ --- TDI Peak grad, S 18.0 mm Hg --------- E', avg, TDI 9.0 cm/sec LVOT/AV, VTI ratio 0.52 ------ --- E/e', avg, TDI 9 <=14 FROYLAN, VTI 1.97 cm^2 --- ------ FROYLAN, Vmax 2.37 cm^2 --------- LVOT Value Ref Diam, S 2.20 cm Mitral valve Value Ref Area 3.8 cm^2 Peak E 0.83 m/sec --------- Peak ruchi, S 1.31 m/sec Peak A 1.13 m/sec --------- VTI, S 24.6 cm Decel time 282 ms --------- Peak grad, S 7 mm Hg Peak grad, D 2.8 mm Hg --------- Mean grad, S 4 mm Hg Peak E/A ratio 0.7 --------- SV 93 ml SV/bsa 33 ml/m^2 Pulmonic valve Value Ref Peak v, S 1.72 m/sec --------- Ventricular septum Value Ref Peak grad, S 12.0 mm Hg --------- IVS, ED (H) 1.6 cm 0.6 - 1.0 Aortic root Value Ref Right ventricle Value Ref Root diam 3.5 cm <4.8 NATACHA, LAX 3.5 cm NATACHA minor ax, (H) 4.9 cm 1.9 - 3.5 Ascending aorta Value Ref A4C mid AAo AP diam, S 3.2 cm --------- Left atrium Value Ref AP dim, ES (H) 4.20 cm 3.00 - 4.00 ML dim, A4C 5.0 cm SI dim, A4C 6.8 cm Vol/bsa, ES, 1-p 34 ml/m^2 12 - 37 A4C Vol/bsa, ES, A/L (H) 43 ml/m^2 16 - 34 Legend: (L) and (H) martha values outside specified reference range. Prepared and electronically signed by Slim Basilio MD 04/02/2019 10:06
[2019-04-02] MEDS: Tamsulosin CAP* 0.4 MG PO SCH (10:41)
[2019-04-02] MEDS: Artificial Tear OPHTH.OINT* 3.5 GM BOTH EYES SCH ×3 (10:41→20:35)
[2019-04-02] MEDS: Insulin GLARGINE(*) 1 UNITS UNIT SUBCUT SCH (10:42)
[2019-04-02] MEDS: Fluticasone NASAL SPRAY 50MCG* 16 gm SPRAY BTL BOTH NARES SCH (10:42)
[2019-04-02 12:20] LABS: Hematocrit 22 % (42-52); Hemoglobin 7.5 g/dL (14.0-18.0)
[2019-04-02] MEDS: Pantoprazole IV* 40 MG IV SCH (12:20)
--- NOTE | 2019-04-02 15:36 | CONS ---
CONSULTATION REPORT: DATE OF CONSULT: 04/02/19 REQUESTING PROVIDER: Riddhi Collier NP REASON FOR CONSULT: Melena. HISTORY OF PRESENT ILLNESS: This is a 73-year-old male with a past medical history of CAD with MT in 2000; chronic diastolic heart failure; obesity hypoventilation syndrome, on Trilogy ventilator support at night; chronic hypercapnic respiratory failure; morbid obesity, who presented to the emergency room from [facility] with lethargy and change in mental status. His is at bedside and supplements the HPI due to altered mental status. She states relatives on Wednesday started to notice changes in his behavior where he was frequently dropping things and having difficulty with his words that was fleeting in nature and other times, he would return to baseline. This continued and that prompted the emergency room evaluation. She states in the emergency room, he did have some shakes, but has not noticed any fever, chills, or distinct rigors at home. She is unsure of the stool; however, she reports in the emergency room that there was black stool that was noted when he was turned. She denies that he was having any abdominal pain, denies any history of gastric reflux, denies any significant history of NSAID use. She states he has not had an upper endoscopy and had a colonoscopy some time ago. Denies any weight loss or gain. The remainder of the 14-point review of systems is grossly negative. PAST MEDICAL HISTORY: Coronary artery disease; diastolic heart failure; obesity hypoventilation syndrome, on Trilogy ventilation support; hypertension; morbid obesity. PAST SURGICAL HISTORY: Back surgery, plastic surgery, rotator cuff surgery, colonoscopy in the past. She states about 10 years ago, she states polyps were found, but he has not been able to follow up yet. MEDICATIONS: Home medications include: 1. Calcium carbonate. 2. Artificial tears. 3. Albuterol. 4. Acetaminophen. 5. Nasal saline spray. 6. Lispro insulin. 7. Tramadol. 8. Nabumetone. 9. Lasix. 10. Albuterol. 11. Flomax. 12. Sorbitol. 13. Insulin glargine. 14. Dulcolax. 15. Fluconazole. 16. Proscar. ALLERGIES: Include DIPHENHYDRAMINE. FAMILY HISTORY: Mother had colon cancer, but survived and is alive at age 99. SOCIAL HISTORY: The patient is a former smoker. Does not drink alcohol. No history of hepatitis viruses or illicit drug use. REVIEW OF SYSTEMS: The remainder of the 14-point review of systems was limited by altered mental status, but supplemented by the and negative except for as described by the HPI. PHYSICAL EXAM: Vital Signs: Blood pressure is 135/89, pulse 69, respiratory rate is 19, he is 97% on BiPAP. General: Very lethargic, awakens to sternal rub. He is not conversating. HEENT: Atraumatic, normocephalic. Pupils equal , round, and reactive to light. Extraocular movements are intact. Conjunctivae are pink. Sclerae anicteric. BiPAP mask applied. Cardiovascular: Regular rate and rhythm. S1, S2. Respiratory: Diminished to bilateral bases. Diminished to right greater than left. Abdomen: Obese, soft, nontender , nondistended. Bowel sounds positive. Extremities: Bilateral edema. Neurologic: Squeezes both hands on deep commands. Rectal revealed brown scant burgundy stool. DIAGNOSTIC STUDIES/LAB DATA: Hemoglobin on admission 6.9, posttransfusion 7.5, 7.3 and now 7.5. Platelet count is 267. WBC count 11.9. Initial lactic acid was 3, now down to 2. Sodium 147, potassium 3.5, BUN 53, creatinine 1.47. AST 17, ALT 20, ammonia 115, bilirubin 0.3, albumin 3.4. Occult blood in the emergency room was positive. Chest x-ray revealed possible right lower lobe infiltrate. ASSESSMENT AND PLAN: This is a 73-year-old male with acute blood loss anemia, obesity hypoventilation and encephalopathy of unclear etiology. 1. Acute blood loss anemia. Platelet count is normal, doubt hepatic contribution to the GI bleed at this point. Agree with IV pantoprazole. H and H q.6 hours. Keep 2 units of blood on hold. Keep the head of bed elevated at 30 degrees at all times. At this point, blood count is stable. He is not tachycardic or hypotensive. His encephalopathy and mental status are barriers to safe sedation at this point. We would prefer further workup of this before endoscopy unless profuse bleeding or change in clinical condition warrant. 2. Encephalopathy, unclear etiology. Ammonia is elevated, not specific in nature. He has no evidence of hepatic synthetic dysfunction with a normal INR, normal platelet count and reasonable albumin. We will look for other causes of elevated ammonia including urea breakdown. Discussed case with Dr. Bradley in ICU, who will be looking at other potential causes of his encephalopathy. 3. Obesity hypoventilation syndrome. Pending clinical improvement. May need anesthesia assistance with EGD. [id number]/[facility] #: [id number] MTDRenee
--- NOTE | 2019-04-02 15:52 | PN ---
Date of Service: 04/02/19 Critical Care Services: Patient admitted last night for low-level GI bleeding (maroon stools and low Hb ) - has received 2 units packed RBCs with last 2 Hbs being stable, and no evidence of hemodynamic compromise. GI service has been in to evaluate, and there are no plans for endoscopy today. Vital Signs: Temp Pulse Resp BP SpO2 FiO2 97.9 F 68 16 122/61 95 30 Physical Exam: Gen:Alert and appears comfortable HEENT:Oral cavity clear of lesions Lungs: BS distant. No crackles or wheezes Cardiac: reg rhythm Abdomen:Not distended. Not tender. Extremities:Warm. No cyanosis or edma Neuro: Can't lift legs against gravity Fluid Balance (Past 24 Hours): 04/02/19 06:59 Intake Total 754 Output Total 2295 Balance -1541 Weight 366 lb Intake: IV Fluids 84 NS (0.9%) 84 Oral Packed Cells 670 Output: Villatoro 2295 NOTE: Intake does not include two units of packed RBCs (500-600 mls) Labs: Laboratory Results - last 24 hr 04/01/19 04/01/19 04/01/19 17:57 17:57 17:57 WBC 12.2 H RBC 2.67 L Hgb 6.9 L Hct 21 L MCV 80 MCH 26 L MCHC 32 RDW 15 Plt Count 304 MPV 8.8 Neut % (Auto) 81.2 Lymph % (Auto) 10.4 [place] % (Auto) 6.7 Eos % (Auto) 1.2 Baso % (Auto) 0.5 Absolute Neuts (auto) 9.9 H Absolute Lymphs (auto) 1.3 Absolute Monos (auto) 0.8 Absolute Eos (auto) 0.1 Absolute Basos (auto) 0.1 Absolute Nucleated RBC 0.0 Nucleated RBC % 0.0 INR (Anticoag Therapy) APTT ABG pH ABG pCO2 ABG pO2 ABG HCO3 ABG O2 Saturation ABG Base Excess Sodium 143 Potassium 3.8 Chloride 103 Carbon Dioxide 29 Anion Gap 11 BUN 57 H Creatinine 1.57 H Est GFR ( Amer) 52.7 Est GFR (Non-Af Amer) 43.5 BUN/Creatinine Ratio 36.3 H Glucose 255 H POC Glucose (mg/dL) Lactic Acid 3.3 H* Calcium 9.0 Magnesium 2.4 Total Bilirubin 0.30 AST 17 ALT 24 Alkaline Phosphatase 93 Ammonia Troponin I 0.01 C-Reactive Protein 10.76 H B-Natriuretic Peptide Total Protein 6.5 Albumin 3.7 Globulin 2.8 Albumin/Globulin Ratio 1.3 Amylase 31 Lipase 59 Urine Color Urine Appearance Urine pH Ur Specific [place] Urine Protein Urine Ketones Urine Blood Urine Nitrate Urine Bilirubin Urine Urobilinogen Ur Leukocyte Esterase Urine WBC (Auto) Urine RBC (Auto) Urine Bacteria Urine Glucose Blood Type Antibody Screen Crossmatch 04/01/19 04/01/19 04/01/19 17:57 17:57 17:57 WBC RBC Hgb Hct MCV MCH MCHC RDW Plt Count MPV Neut % (Auto) Lymph % (Auto) [place] % (Auto) Eos % (Auto) Baso % (Auto) Absolute Neuts (auto) Absolute Lymphs (auto) Absolute Monos (auto) Absolute Eos (auto) Absolute Basos (auto) Absolute Nucleated RBC Nucleated RBC % INR (Anticoag Therapy) 0.94 APTT 31.0 ABG pH ABG pCO2 ABG pO2 ABG HCO3 ABG O2 Saturation ABG Base Excess Sodium Potassium Chloride Carbon Dioxide Anion Gap BUN Creatinine Est GFR ( Amer) Est GFR (Non-Af Amer) BUN/Creatinine Ratio Glucose POC Glucose (mg/dL) Lactic Acid Calcium Magnesium Total Bilirubin AST ALT Alkaline Phosphatase Ammonia 83 H Troponin I C-Reactive Protein B-Natriuretic Peptide 34 Total Protein Albumin Globulin Albumin/Globulin Ratio Amylase Lipase Urine Color Urine Appearance Urine pH Ur Specific [place] Urine Protein Urine Ketones Urine Blood Urine Nitrate Urine Bilirubin Urine Urobilinogen Ur Leukocyte Esterase Urine WBC (Auto) Urine RBC (Auto) Urine Bacteria Urine Glucose Blood Type O Positive Antibody Screen Negative Crossmatch See Detail 04/01/19 04/01/19 04/01/19 19:52 20:00 22:12 WBC RBC Hgb Hct MCV MCH MCHC RDW Plt Count MPV Neut % (Auto) Lymph % (Auto) [place] % (Auto) Eos % (Auto) Baso % (Auto) Absolute Neuts (auto) Absolute Lymphs (auto) Absolute Monos (auto) Absolute Eos (auto) Absolute Basos (auto) Absolute Nucleated RBC Nucleated RBC % INR (Anticoag Therapy) APTT ABG pH 7.43 ABG pCO2 41 ABG pO2 73 L ABG HCO3 26.8 ABG O2 Saturation 96.3 ABG Base Excess 2.6 H Sodium Potassium Chloride Carbon Dioxide Anion Gap BUN Creatinine Est GFR ( Amer) Est GFR (Non-Af Amer) BUN/Creatinine Ratio Glucose POC Glucose (mg/dL) Lactic Acid 3.0 H* Calcium Magnesium Total Bilirubin AST ALT Alkaline Phosphatase Ammonia Troponin I C-Reactive Protein B-Natriuretic Peptide Total Protein Albumin Globulin Albumin/Globulin Ratio Amylase Lipase Urine Color Yellow Urine Appearance Clear Urine pH 5.0 Ur Specific [place] 1.014 Urine Protein 1+(30 mg/dl) A Urine Ketones Negative Urine Blood Negative Urine Nitrate Negative Urine Bilirubin Negative Urine Urobilinogen Negative Ur Leukocyte Esterase Negative Urine WBC (Auto) Trace(0-5/hpf) Urine RBC (Auto) Trace(0-2/hpf) Urine Bacteria Absent Urine Glucose Negative Blood Type Antibody Screen Crossmatch 04/01/19 04/02/19 04/02/19 23:42 04:45 04:45 WBC RBC Hgb Hct MCV MCH MCHC RDW Plt Count MPV Neut % (Auto) Lymph % (Auto) [place] % (Auto) Eos % (Auto) Baso % (Auto) Absolute Neuts (auto) Absolute Lymphs (auto) Absolute Monos (auto) Absolute Eos (auto) Absolute Basos (auto) Absolute Nucleated RBC Nucleated RBC % INR (Anticoag Therapy) APTT ABG pH ABG pCO2 ABG pO2 ABG HCO3 ABG O2 Saturation ABG Base Excess Sodium 147 H Potassium 3.5 Chloride 108 Carbon Dioxide 31 Anion Gap 8 BUN 53 H Creatinine 1.47 H Est GFR ( Amer) 56.8 Est GFR (Non-Af Amer) 47.0 BUN/Creatinine Ratio 36.1 H Glucose 179 H POC Glucose (mg/dL) 233 H Lactic Acid 2.4 H* Calcium 8.2 L Magnesium Total Bilirubin 0.30 AST 17 ALT 20 Alkaline Phosphatase 84 Ammonia Troponin I C-Reactive Protein B-Natriuretic Peptide Total Protein 5.9 L Albumin 3.4 Globulin 2.5 Albumin/Globulin Ratio 1.4 Amylase Lipase Urine Color Urine Appearance Urine pH Ur Specific [place] Urine Protein Urine Ketones Urine Blood Urine Nitrate Urine Bilirubin Urine Urobilinogen Ur Leukocyte Esterase Urine WBC (Auto) Urine RBC (Auto) Urine Bacteria Urine Glucose Blood Type Antibody Screen Crossmatch 04/02/19 04/02/19 04/02/19 04:45 07:52 08:02 WBC 11.9 H RBC 2.79 L Hgb 7.5 L Hct 23 L MCV 81 MCH 27 MCHC 33 RDW 16 H Plt Count 267 MPV 8.5 Neut % (Auto) 75.7 Lymph % (Auto) 12.3 [place] % (Auto) 8.3 Eos % (Auto) 2.7 Baso % (Auto) 1.0 Absolute Neuts (auto) 9.0 H Absolute Lymphs (auto) 1.5 Absolute Monos (auto) 1.0 H Absolute Eos (auto) 0.3 Absolute Basos (auto) 0.1 Absolute Nucleated RBC 0.0 Nucleated RBC % 0.0 INR (Anticoag Therapy) APTT ABG pH ABG pCO2 ABG pO2 ABG HCO3 ABG O2 Saturation ABG Base Excess Sodium Potassium Chloride Carbon Dioxide Anion Gap BUN Creatinine Est GFR ( Amer) Est GFR (Non-Af Amer) BUN/Creatinine Ratio Glucose POC Glucose (mg/dL) 110 H Lactic Acid 2.0 Calcium Magnesium Total Bilirubin AST ALT Alkaline Phosphatase Ammonia Troponin I C-Reactive Protein B-Natriuretic Peptide Total Protein Albumin Globulin Albumin/Globulin Ratio Amylase Lipase Urine Color Urine Appearance Urine pH Ur Specific [place] Urine Protein Urine Ketones Urine Blood Urine Nitrate Urine Bilirubin Urine Urobilinogen Ur Leukocyte Esterase Urine WBC (Auto) Urine RBC (Auto) Urine Bacteria Urine Glucose Blood Type Antibody Screen Crossmatch 04/02/19 04/02/19 04/02/19 08:02 08:02 12:09 WBC RBC Hgb 7.3 L 7.5 L Hct 22 L 22 L MCV MCH MCHC RDW Plt Count MPV Neut % (Auto) Lymph % (Auto) [place] % (Auto) Eos % (Auto) Baso % (Auto) Absolute Neuts (auto) Absolute Lymphs (auto) Absolute Monos (auto) Absolute Eos (auto) Absolute Basos (auto) Absolute Nucleated RBC Nucleated RBC % INR (Anticoag Therapy) APTT ABG pH ABG pCO2 ABG pO2 ABG HCO3 ABG O2 Saturation ABG Base Excess Sodium Potassium Chloride Carbon Dioxide Anion Gap BUN Creatinine Est GFR ( Amer) Est GFR (Non-Af Amer) BUN/Creatinine Ratio Glucose POC Glucose (mg/dL) Lactic Acid Calcium Magnesium Total Bilirubin AST ALT Alkaline Phosphatase Ammonia 115 H Troponin I C-Reactive Protein B-Natriuretic Peptide Total Protein Albumin Globulin Albumin/Globulin Ratio Amylase Lipase Urine Color Urine Appearance Urine pH Ur Specific [place] Urine Protein Urine Ketones Urine Blood Urine Nitrate Urine Bilirubin Urine Urobilinogen Ur Leukocyte Esterase Urine WBC (Auto) Urine RBC (Auto) Urine Bacteria Urine Glucose Blood Type Antibody Screen Crossmatch 04/02/19 12:09 WBC RBC Hgb Hct MCV MCH MCHC RDW Plt Count MPV Neut % (Auto) Lymph % (Auto) [place] % (Auto) Eos % (Auto) Baso % (Auto) Absolute Neuts (auto) Absolute Lymphs (auto) Absolute Monos (auto) Absolute Eos (auto) Absolute Basos (auto) Absolute Nucleated RBC Nucleated RBC % INR (Anticoag Therapy) APTT ABG pH ABG pCO2 ABG pO2 ABG HCO3 ABG O2 Saturation ABG Base Excess Sodium Potassium Chloride Carbon Dioxide Anion Gap BUN Creatinine Est GFR ( Amer) Est GFR (Non-Af Amer) BUN/Creatinine Ratio Glucose POC Glucose (mg/dL) 213 H Lactic Acid Calcium Magnesium Total Bilirubin AST ALT Alkaline Phosphatase Ammonia Troponin I C-Reactive Protein B-Natriuretic Peptide Total Protein Albumin Globulin Albumin/Globulin Ratio Amylase Lipase Urine Color Urine Appearance Urine pH Ur Specific [place] Urine Protein Urine Ketones Urine Blood Urine Nitrate Urine Bilirubin Urine Urobilinogen Ur Leukocyte Esterase Urine WBC (Auto) Urine RBC (Auto) Urine Bacteria Urine Glucose Blood Type Antibody Screen Crossmatch Studies: None today Nutrition: NPO except for clear liquids Impression: 1. No evidence of active upper GI bleeding at the present time. 2. Patient claims SOB when no evidence of respiratory difficulty, and also has brief periods of unresponsiveness that seem voluntary. ? manifestations of an emotional/psychiatric disorder Plan: 1. Monitor BP, hemoglobin, and stools, pending possible upper GI endoscopy. 2. Empric Rx with IV protonix (bolus, not infusion) 3. RBC transfusion if Hb falls below 7 g/dL, or if evidence of active bleeding. Critical Care Time: 45 minutes
--- NOTE | 2019-04-02 16:17 | PN ---
Progress Note - Progress Note Date of Service: 04/02/19 Note: Patient also noted to have a markedly elevated plasma ammonia level (155 mcmol/L ) with no evidence of liver disease. Hyperammonemia has been reported in association with GI bleeding, although the magnitude of the change is unclear. For now, we will just monitor the ammonia - no Rx indicated.
[2019-04-02] MEDS ORDERED: fentaNYL* 50 MCG/ML 2 ML VIAL (100 MCG VIAL) IV SLOW PU ONE (18:00)
[2019-04-02 20:08] LABS: Hematocrit 22 % (42-52); Hemoglobin 7.3 g/dL (14.0-18.0)
[2019-04-02] MEDS ORDERED: cefTRIAXone(*) 1 GM in NS 0.9% 50 ML* 50 ML IVPB SCH (21:00)
[2019-04-03] MEDS: Insulin LISPRO* 1 UNITS UNIT SUBCUT SCH ×5 (00:03→23:34)
[2019-04-03 05:31] LABS: Hematocrit 21 % (42-52); Hemoglobin 7.1 g/dL (14.0-18.0); Mean Corpuscular HGB Conc 34 g/dL (31-36); Mean Corpuscular Hemoglobin 27 pg (27-31); Mean Corpuscular Volume 81 fL (80-94); Mean Platelet Volume 8.5 fL (7.4-10.4); Platelet Count 254 10^3/uL (150-450); Red Blood Count 2.61 10^6 /uL (4.18-5.48); Red Cell Distribution Width 15 % (10-15); White Blood Count 9.8 10^3/uL (3.5-10.8)
[2019-04-03 05:43] LABS: BUN/Creatinine Ratio 26.3 (8-20); Calcium 8.4 mg/dL (8.6-10.3); EGFR African American 63.8 (>60); EGFR Non-African American 52.7 (>60); Potassium 3.1 mmol/L (3.5-5.0)
[2019-04-03] MEDS: Albuterol HFA INHALER* 8 gm MDI INH SCH ×2 (07:20→19:44)
[2019-04-03] MEDS: Artificial Tear OPHTH.OINT* 3.5 GM BOTH EYES SCH ×3 (07:46→20:56)
[2019-04-03] MEDS: Potassium Chlor TAB* 20 MEQ TAB.ER PO SCH ×2 (07:47→20:57)
[2019-04-03] MEDS: Tamsulosin CAP* 0.4 MG PO SCH (07:47)
[2019-04-03] MEDS: Pantoprazole IV* 40 MG IV SCH (07:47)
[2019-04-03] MEDS: Fluticasone NASAL SPRAY 50MCG* 16 gm SPRAY BTL BOTH NARES SCH (08:52)
--- NOTE | 2019-04-03 10:22 | PN ---
Date of Service: 04/03/19 Critical Care Services: no active GIB overnight. No BPR. H/H remains stable remains hemodynamically stable mental status improved and at baseline ammonia decreasing renal functions improving Vital Signs: Temp Pulse Resp BP SpO2 FiO2 99.1 F 67 21 146/64 96 30 04/03/19 07:28 04/03/19 10:01 04/03/19 10:01 04/03/19 10:01 04/03/19 10:01 04/02 15:21 Physical Exam: Gen:NAD Lungs: Decreased BS's Cardiac: RRR Abdomen:+ BS's, Soft, NTP. Obese Extremities: No MAGALY. venous stasis signs Neuro:moving all extremities. sitting up in bed. AO times 3. NAD. Fluid Balance (Past 24 Hours): I= O= Net Intake & Output 04/01/19 04/02/19 04/03/19 04/04/19 06:59 06:59 06:59 06:59 Intake Total 754 1080 Output Total 2299 1125 470 Balance -1541 -2365 -470 Weight 366 lb 3.005 oz 362 lb 7.039 oz Intake: IV Fluids 84 NS (0.9%) 84 Oral 1080 Packed Cells 670 Output: Urine 185 Villatoro 2295 3260 470 Labs: Laboratory Results - last 24 hr 04/02/19 04/02/19 04/02/19 12:09 12:09 17:16 WBC RBC Hgb 7.5 L Hct 22 L MCV MCH MCHC RDW Plt Count MPV Sodium Potassium Chloride Carbon Dioxide Anion Gap BUN Creatinine Est GFR ( Amer) Est GFR (Non-Af Amer) BUN/Creatinine Ratio Glucose POC Glucose (mg/dL) 213 H 168 H Calcium Ammonia 04/02/19 04/02/19 04/03/19 19:56 19:56 05:05 WBC RBC Hgb 7.3 L Hct 22 L MCV MCH MCHC RDW Plt Count MPV Sodium Potassium Chloride Carbon Dioxide Anion Gap BUN Creatinine Est GFR ( Amer) Est GFR (Non-Af Amer) BUN/Creatinine Ratio Glucose POC Glucose (mg/dL) Calcium Ammonia 82 H 66 H 04/03/19 04/03/19 05:05 05:05 WBC 9.8 RBC 2.61 L Hgb 7.1 L Hct 21 L MCV 81 MCH 27 MCHC 34 RDW 15 Plt Count 254 MPV 8.5 Sodium 146 H Potassium 3.1 L Chloride 111 Carbon Dioxide 29 Anion Gap 6 BUN 35 H Creatinine 1.33 H Est GFR ( Amer) 63.8 Est GFR (Non-Af Amer) 52.7 BUN/Creatinine Ratio 26.3 H Glucose 170 H POC Glucose (mg/dL) Calcium 8.4 L Ammonia Impression: GIB Encephalopathy - resolved with decreasing ammonia HARSH CHF Hx anemia 2/2 bleed Plan: may transfer to floor continue to trend H/H GI advancing diet and not doing any procedures replenish K Monitor renal functions check iron levels d/w Hospitalist Critical Care Time:
[2019-04-03 12:15] LABS: % Iron Saturation 5 % (15-55); Iron 23 ug/dL (50-212); Total Iron Binding Capacity 424 mcg/dL (250-450); Transferrin 303 mg/dL (203-362)
[2019-04-03] MEDS: Insulin GLARGINE(*) 1 UNITS UNIT SUBCUT SCH (13:57)
[2019-04-03] MEDS: Acetaminophen TAB* 325 MG PO PRN ×2 (16:07→23:06)
[2019-04-04] MEDS: Acetaminophen TAB* 325 MG PO PRN (04:56)
[2019-04-04] MEDS: Insulin LISPRO* 1 UNITS UNIT SUBCUT SCH ×3 (06:13→17:43)
--- NOTE | 2019-04-04 06:31 | PN ---
Hospitalist Progress Note Date of Service: 04/04/19 Cross Cover Note Pt with witnessed fall and hit his knee, VSS and pt oriented
--- NOTE | 2019-04-04 06:54 | PN ---
Progress Note - Progress Note Date of Service: 04/03/19 Note: LATE ENTRY pt seen and examined in ICU on 04-03-19 at approx. 3 pm feels better, more alert, denies abd pain, n/v, blood in stool tolerating reg diet. 98.3, 161/73 nad, alert, oriented x 3 super morbid obese, +BS, soft, NT hgb 7.1 from 7.3 Anemia, needs EGD to r/o PUD, will need anesthesia to sedate, plan for tomorrow Wednesday , npo after midnight Julio Cesar Diaz MD [facility], [phone]
[2019-04-04] MEDS: Albuterol HFA INHALER* 8 gm MDI INH SCH ×2 (07:46→19:35)
[2019-04-04] MEDS: Insulin GLARGINE(*) 1 UNITS UNIT SUBCUT SCH (08:53)
[2019-04-04] MEDS: Pantoprazole IV* 40 MG IV SCH (09:10)
[2019-04-04 09:11] LABS: ABS Basophils 0.1 10^3/ul (0-0.2); ABS Eosinophils 0.6 10^3/ul (0-0.6); ABS Lymphocytes 1.2 10^3/ul (1.0-4.8); ABS Monocytes 0.9 10^3/ul (0-0.8); ABS Neutrophils 7.9 10^3/ul (1.5-7.7); Eosinophil % 5.5 %; Hematocrit 23 % (42-52); Hemoglobin 7.6 g/dL (14.0-18.0); Mean Corpuscular HGB Conc 33 g/dL (31-36); Mean Corpuscular Hemoglobin 27 pg (27-31); Mean Corpuscular Volume 82 fL (80-94); Mean Platelet Volume 8.5 fL (7.4-10.4); Platelet Count 262 10^3/uL (150-450); Red Blood Count 2.81 10^6 /uL (4.18-5.48); Red Cell Distribution Width 16 % (10-15); White Blood Count 10.7 10^3/uL (3.5-10.8)
[2019-04-04] MEDS: Fluticasone NASAL SPRAY 50MCG* 16 gm SPRAY BTL BOTH NARES SCH (09:11)
[2019-04-04] MEDS: Artificial Tear OPHTH.OINT* 3.5 GM BOTH EYES SCH ×3 (09:15→21:09)
[2019-04-04 09:33] LABS: BUN/Creatinine Ratio 17.9 (8-20); Calcium 8.6 mg/dL (8.6-10.3); EGFR African American 63.2 (>60); EGFR Non-African American 52.3 (>60); Magnesium 2.4 mg/dL (1.9-2.7); Phosphorus 2.3 mg/dL (2.5-5.0); Potassium 3.3 mmol/L (3.5-5.0)
[2019-04-04] MEDS ORDERED: Potassium Chloride* LIQUID 20 MEQ/15 ML UDC PO ONE (09:45)
[2019-04-04] MEDS: Potassium Chlor TAB* 20 MEQ TAB.ER PO SCH (10:13)
[2019-04-04] MEDS ORDERED: Midazolam* 1 MG/ML 2 ML VIAL (2 MG) ONE (14:18)
[2019-04-04] MEDS ORDERED: Propofol* 10 MG/ML 20 ML BTL ONE (14:18)
[2019-04-04] MEDS ORDERED: Lidocaine 2% PF * 5 ML VIAL ONE (14:18)
[2019-04-04] MEDS ORDERED: Ondansetron INJ* 2 MG/ML VIAL ONE (14:18)
[2019-04-04] MEDS ORDERED: Acetaminophen TAB* 325 MG PO PRN (15:53)
[2019-04-04] MEDS: Tamsulosin CAP* 0.4 MG PO SCH (16:06)
[2019-04-04] MEDS: Neomycin/Polym/Bacit TOP OINT* 15 GM TOPICAL SCH (16:06)
[2019-04-04] MEDS: oxyCODONE TAB* 5 MG TAB PO PRN (16:07)
--- NOTE | 2019-04-04 16:49 | CONS ---
GASTROENTEROLOGY CONSULT FOLLOWUP: DATE OF CONSULT : 04/04/19 CONSULTING PHYSICIAN: Dr. Ray Dale. REASON FOR CONSULTATION: Recent GI bleed with melena, hospitalized 3 days ago. FOLLOWUP DEVELOPMENT: This super morbidly obese 73-year-old man with hypoventilation, resident of a intermediate in [place] in the last 2 years was admitted 3 days ago with a hemoglobin of 6.9. He was transfused 2 units and hemoglobin has risen to 7.6. His BUN that had been 57 has steadily decreased to 24. Labs show iron severe deficiency During these 3 days, he has not had any emesis, abdominal pain, or stools. His says there has been no stool at all. His initial symptoms at the intermediate were that of fatigue noticed on 03/31/19 and then tarry stools that became evident to the nursing staff 04/01/19. That has ended. 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 He is not ambulatory. The record shows no acid blockade or peptic medication. His gives the history as he claims no memory. He has never complained of acid, indigestion, or heartburn and she and their daughters confirm he has never been on any PPIs or acid blockade. He has never had an upper endoscopy. After admission, he had a GI consult on 04/02/19 observing that his ammonia was up first 83 and then up to 115 and that he would likely need anesthesia assistance for any endoscopic procedure. Yesterday he was allowed to eat and had no trouble. Today, Dr. Matrinez seeing him and planning procedural sedation acknowledged that intubation would be possibly needed. He felt it would be the best actually and with any plan would have to be considered as a possibility given his tenuous respiratory status. He is adamantly against intubation. A relative had a difficult course with a respirator. PHYSICAL EXAMINATION: On exam, he is morbidly obese and appears chronically ill, tired but comfortable, minimally pale with pursed lip breathing. Lungs with diminished breath sounds, but equal symmetrically. Heart sounds regular. His abdomen is massively obese with no scar, normal bowel sounds, firm, and nontender. Rectal deferred. Today standing for getting a weight, he fell and has some soreness in his tail bone. IMPRESSION: This 73-year-old man, stable now on the third hospital day, has not been showing any signs of ongoing bleeding. Most likely etiology of his bleeding both subacute and chronic is related to nabumetone without any covering PPI prophylaxis. At the intermediate, he is nonambulatory, and the lowest risk plan from avoiding complications would be to continue off nabumetone and on twice a day PPI for couple of weeks and then back off to once a day PPI. The results of EGD are not likely to alter that eventual plan and as performing it runs at least moderate risk will defer. Being bedbound, he is at risk for esophagitis which could be under perceived so it is a priority also to be sure that he swallows his pills effectively.Also would not stop the PPI as prophylaxis for recumbent reflux is indicated. [id number]/CPS #: [id number] MTDD
--- NOTE | 2019-04-04 16:57 | PN ---
Subjective Date of Service: 04/04/19 Interval History: patient seen this morning in his room, alert, awake, and oriented. He was NPO pending EGD. Complaining of leg pain (left) and right Great toe (laceration) post fall yesterday. I did speak with Dr. Dr. Naik this afternoon he was deemed a high risk for anesthesia and patient did not consent for intubation in the event for cardiopulmonary complications. Hence, EGD was cancelled given his risk for intubations. Recommended Iron infusion and increase PPI to bid. If remains stable will plan for discharge planing in am. No NSAIDS's of course. Past Medical History: Unchanged from Admission Objective Active Medications: Acetaminophen (Tylenol Tab*) 975 mg PO Q8H PRN PRN Reason: MILD PAIN or TEMP > 100.4 Albuterol (Ventolin Hfa Inhaler*) 2 puff INH BID [facility] Last Admin: 04/04/19 07:46 Dose: 2 puff Albuterol/Ipratropium (Duoneb (Albuterol 2.5 Mg/Ipratropium 0.5 Mg)) 1 neb INH Q6H PRN PRN Reason: SOB/WHEEZING Last Admin: 04/02/19 14:56 Dose: 1 neb Artificial Tears (Lacrilube Oint*) 1 applic BOTH EYES TID [facility] Last Admin: 04/04/19 16:07 Dose: 1 applic Dextrose (Dextrose 50% Vial 50 Ml*) 25 ml IV PUSH .FOR FS < 60 - SS PRN PRN Reason: FS < 60 Fluticasone Propionate (Flonase Nasal [place] 50mcg*) 1 spray BOTH NARES DAILY [facility] Last Admin: 04/04/19 09:11 Dose: 1 spray Insulin Glargine (Lantus(*)) 40 units SUBCUT 0900 [facility] Last Admin: 04/04/19 08:53 Dose: Not Given Insulin Human Lispro (Humalog*) 0 units SUBCUT FS Q6 ICU [facility]; Protocol Last Admin: 04/04/19 11:20 Dose: Not Given Neomycin/Polymyxin/Bacitracin (Neosporin Top Oint Tube*) 1 applic TOPICAL DAILY [facility] Last Admin: 04/04/19 16:06 Dose: 1 applic Oxycodone HCl (Roxycodone Tab*) 5 mg PO Q4H PRN PRN Reason: PAIN - SEVERE Last Admin: 04/04/19 16:07 Dose: 5 mg Pantoprazole Sodium (Protonix Tab*) 40 mg PO BID PAN Sodium Chloride (Sodium Chloride 0.65% Nasal [place]*) 1 spray BOTH NARES Q4H PRN PRN Reason: Congested nose Last Admin: 04/04/19 09:11 Dose: 1 spray Tamsulosin HCl (Flomax Cap*) 0.8 mg PO DAILY PAN Last Admin: 04/04/19 16:06 Dose: 0.8 mg Vital Signs - 8 hr 04/04/19 04/04/19 04/04/19 08:56 11:11 15:15 Temperature 97.1 F 98.4 F 98.0 F Pulse Rate 50 69 66 Respiratory 20 20 17 Rate Blood Pressure 145/51 149/66 173/69 (mmHg) O2 Sat by Pulse 98 98 96 Oximetry 04/04/19 16:07 Temperature Pulse Rate Respiratory 20 Rate Blood Pressure (mmHg) O2 Sat by Pulse Oximetry Oxygen Devices in Use Now: Nasal Cannula Appearance: obese, awake Eyes: No Scleral Icterus Ears/Nose/Mouth/Throat: Mucous Membranes Moist Neck: NL Appearance and Movements; NL JVP, Trachea Midline Respiratory: - - distant Breath sounds. Cardiovascular: NL Sounds; No Murmurs; No JVD Abdominal: - - obese, non tender. + BS Extremities: - - + 2 edema, right great tos abraision over his right great toe Neurological: Alert and Oriented x 3 Result Diagrams: 04/04/19 08:57 04/04/19 08:57 Microbiology and Other Data: Microbiology 04/01/19 22:12 Blood Culture - Preliminary Blood Arterial No Growth Day 2 04/01/19 22:12 Blood Culture - Preliminary Blood Arterial No Growth Day 2 04/01/19 20:00 Urine Culture - Final Urine No Growth (<1,000 CFU/mL) 04/01/19 22:00 Nasal Screen MRSA (PCR) - Final Nasal Mrsa Not Detected 04/01/19 17:30 Stool Occult Blood (ANITA) - Final Stool Assess/Plan/Problems-Billing Assessment: 73 y/o male admitted for anemia manifested with dark tarry stool in the setting of chronic use of nabematone, found to have H/H 6.9/21 on admission - Patient Problems (1) Anemia Current Visit: No Status: Acute Code(s): D64.9 - ANEMIA, UNSPECIFIED SNOMED Code(s): 173921287 Comment: - suspect secondary to GI loss from upper source in the setting of chronic NSAIDs' use - Not good candidate for general anesthesia - GI (Dr. Naik) input appreciated. Recommended PPI bid and Iron infusions and avoid all NSAIDS (2) CHF (congestive heart failure) Current Visit: No Status: Acute Code(s): I50.9 - HEART FAILURE, UNSPECIFIED SNOMED Code(s): 12533425 Comment: - chronic diastollic - Will resume lasix 80 mg bid (3) DVT prophylaxis Current Visit: No Status: Acute Code(s): QNE4466 - SNOMED Code(s): 064966299 Comment: - SCD in the setting of GI bleed. (4) Obesity hypoventilation syndrome Current Visit: No Status: Acute Code(s): E66.2 - MORBID (SEVERE) OBESITY WITH ALVEOLAR HYPOVENTILATION SNOMED Code(s): 611858307 Comment: - continue his home Trilogy and oxymask at 8 once available
[2019-04-04] MEDS: Iron Sucrose* 200 MG in NS 0.9% 100 ML* 100 ML IVPB SCH (17:51)
[2019-04-04] MEDS: Pantoprazole TAB * 40 MG TAB PO SCH (21:09)
[2019-04-04] MEDS: Furosemide TAB* 40 MG PO SCH (21:10)
[2019-04-05] MEDS: Insulin LISPRO* 1 UNITS UNIT SUBCUT SCH ×4 (01:02→17:56)
[2019-04-05] MEDS: oxyCODONE TAB* 5 MG TAB PO PRN ×3 (03:48→14:13)
[2019-04-05 06:51] LABS: ABS Basophils 0.1 10^3/ul (0-0.2); ABS Eosinophils 0.7 10^3/ul (0-0.6); ABS Lymphocytes 1.1 10^3/ul (1.0-4.8); Eosinophil % 5.6 %; Hematocrit 23 % (42-52); Hemoglobin 7.8 g/dL (14.0-18.0); Lymphocyte % 9.4 %; Mean Corpuscular HGB Conc 33 g/dL (31-36); Mean Corpuscular Hemoglobin 27 pg (27-31); Mean Corpuscular Volume 81 fL (80-94); Mean Platelet Volume 8.6 fL (7.4-10.4); Platelet Count 283 10^3/uL (150-450); Red Blood Count 2.89 10^6 /uL (4.18-5.48); Red Cell Distribution Width 15 % (10-15); White Blood Count 11.9 10^3/uL (3.5-10.8)
[2019-04-05 07:10] LABS: Calcium 8.2 mg/dL (8.6-10.3); EGFR African American 67.3 (>60); EGFR Non-African American 55.6 (>60); Magnesium 2.1 mg/dL (1.9-2.7); Phosphorus 2.5 mg/dL (2.5-5.0); Potassium 3.4 mmol/L (3.5-5.0)
[2019-04-05] MEDS: Albuterol HFA INHALER* 8 gm MDI INH SCH (07:30)
[2019-04-05] MEDS ORDERED: Potassium Chloride* LIQUID 20 MEQ/15 ML UDC PO ONE (09:18)
[2019-04-05] MEDS: Artificial Tear OPHTH.OINT* 3.5 GM BOTH EYES SCH ×2 (09:30→12:54)
[2019-04-05] MEDS: Furosemide TAB* 40 MG PO SCH (09:30)
[2019-04-05] MEDS: Fluticasone NASAL SPRAY 50MCG* 16 gm SPRAY BTL BOTH NARES SCH (09:30)
[2019-04-05] MEDS: Insulin GLARGINE(*) 1 UNITS UNIT SUBCUT SCH (09:31)
[2019-04-05] MEDS: Tamsulosin CAP* 0.4 MG PO SCH (09:32)
[2019-04-05] MEDS: Neomycin/Polym/Bacit TOP OINT* 15 GM TOPICAL SCH (09:32)
[2019-04-05] MEDS: Pantoprazole TAB * 40 MG TAB PO SCH (09:32)
--- NOTE | 2019-04-05 15:26 | DS ---
CC: Dr. Anuj David; Dr. Naik; Dr. Aiden Samayoa * DISCHARGE SUMMARY: DATE OF ADMISSION: 04/01/19 DATE OF DISCHARGE: 04/05/19 FINAL DISCHARGE DIAGNOSES: 1. Gastrointestinal bleed most likely secondary to upper gastrointestinal bleed related to NSAIDs, specifically nabumetone. 2. Anemia secondary to iron-deficiency anemia due to the gastrointestinal bleed and iron loss. ADDITIONAL DISCHARGE DIAGNOSES: 1. Chronic diastolic heart failure. 2. Coronary artery disease, status post myocardial infarction in 2000. 3. Obesity, hyperventilation syndrome, on chronic 2 L nasal cannula and Trilogy vent support. 4. Diabetes mellitus, type 2. 5. Hypertension. 6. Morbid obesity. 7. Chronic lower extremity bilateral venous stasis. 8. Peripheral neuropathy. HOSPITAL COURSE: The patient presented to [facility] on 04/01/19 from [facility]. He presented due to altered mentation with a dark tarry stool. In the emergency room, his workup was significant for hemoglobin of 6.9 and hematocrit 22 with elevated BUN and ammonia of 83. Therefore, the patient was brought into the ICU service. He was covered empirically with Rocephin due to mild elevation of white count on presentation and diuretic was held, received some IV fluid. He was started on IV Protonix 40 daily. GI consultation was obtained, and he was placed on H and H serial monitoring. The patient remained in the ICU service until 04/03/19 with ongoing monitoring of H and H. GI recommendation initially was noted and reviewed by Dr. Anuj David and recommended medical optimization to correct his encephalopathy before pursuing any intervention such as EGD. The patient was given 2 units of blood on 04/01/19 on admission. He tolerated the transfusion well and his hemoglobin improved to 7.5 post transfusion and then stable between 7.5 and 7.8 today after 2 dose of iron infusion as well. No further active bleed. His H and H is stable. Dr. Naik did see and evaluated the patient yesterday, 04/04/19. Given the high risk and increased morbidity with general anesthesia and potential mechanical intubation, the patient did not consent for anesthesia, hence the endoscopy was not performed due to the potential risk of mechanical intubation, for which the patient did not consent to. Therefore, the recommendation at that time was implemented based on Dr. Naik's recommendation to give him iron infusion and increase PPI twice a day, avoid iron supplementation by mouth until at least 2 weeks have passed on PPI b.i.d. and discontinue of course nabumetone until further instructed otherwise. Therefore, the patient was started on IV iron yesterday. We were not able to do Feraheme 1 dose; however, we were able to do the iron sucrose 200 mg 1 dose yesterday and 1 dose he will be receiving today and to follow up with outpatient primary and GI for further monitoring of the GI bleed. He was seen and evaluated today. He is out of bed to chair with assist, tolerating his diet. No active bleed. Therefore, I deemed the patient stable to return back to [facility] after he completes his iron infusion this evening. DISCHARGE MEDICATIONS: 1. Resume albuterol inhaler. 2. Artificial Tears eye drops to both t.i.d. 3. Flonase 1 spray both nares daily. 4. Lasix 80 mg b.i.d. 5. Lantus 80 units every morning as per home regimen. 6. Neomycin triple antibiotic to the right great toe daily, cover with dry dressing. 7. Protonix 40 mg b.i.d. 8. Saline nasal spray p.r.n. 9. Flomax 0.8 mg daily. 10. Tylenol as needed for pain. 11. DuoNeb treatment p.r.n. 12. Dulcolax 10 mg daily. 13. Calcium carbonate p.r.n. q.4 hours 2 tabs. 14. Proscar 5 mg daily. 15. Lispro sliding scale. 16. Sorbitol. 17. Tramadol 50 mg b.i.d. for pain. PHYSICAL EXAM ON DISCHARGE: Temperature 98.5, pulse 84, respiratory rate 20, blood pressure 122/57. General: He is awake, alert, oriented, morbidly obese, in no distress, complaining of some chronic low back pain and leg pain. Head and Neck: Normocephalic, atraumatic, anicteric sclerae. Lungs: Clear to auscultation. Distant breath sounds. Cardiovascular: S1, S2. Irregularly irregular. Abdomen: Positive bowel sounds. Obese, soft, nontender, nondistended. Extremities: Chronic pedal edema. DIAGNOSTIC STUDIES: CBC multiple, most significant for his hemoglobin on admission of 6.9, currently up to 7.8 post transfusion. Chemistry significant for transient hypokalemia, was corrected. BUN was as high as 57, down to 19; creatinine 1.57, down to 1.27. Chest x-ray, no evidence of acute cardiopulmonary disease. A 2D echo was done on 04/02/19, revealed normal systolic function, systolic 65% with grade 1 diastolic dysfunction. Left atrium severely dilated, which I suspect he may have because of possible paroxysmal AFib that we are not capturing. He does have a lot of PACs. CONSULTATIONS: 1. ICU on admission, Dr. Ifeanyi Bradley. 2. Gastroenterology, initial consultation with Dr. Anuj David. DISCHARGE INSTRUCTIONS AND RECOMMENDATION: To remain off any NSAIDs, specifically nabumetone. No anticoagulation or antiplatelets for the next 2 weeks. Please consult with GI before initiating any antiplatelet therapy. Maintain Protonix 40 mg b.i.d. No iron supplementation for at least 2 weeks on PPI. If potentially feasible to give him additional IV infusion at the [facility], I would recommend additional 3 doses in the next 2 weeks. They can be 3 days apart and may continue the same formulation that we used as an inpatient iron sucrose 200 mg, to be infused for a total of 3 doses to complete a 5-dose regimen and that can be done over 6 to 9 days as long as they are by 3 days. If not, then please do not resume iron supplement by mouth until 2 weeks he is on PPI. DIET: Regular diabetic and cardiac. ACTIVITY: As tolerated. DISCHARGE DISPOSITION: Back to his [facility] facility at [facility]. DISCHARGE REFERRAL AND FOLLOWUP: To follow up with Dr. Anuj David in about 3 to 4 weeks. Follow up with his PCP, Dr. Aiden Samayoa, to call and make an appointment. [id number]/[facility] #: [id number]
[2019-04-05 15:48] VITALS: BP 141/54
[2019-04-05] MEDS: Iron Sucrose* 200 MG in NS 0.9% 100 ML* 100 ML IVPB SCH (16:03)
== END 2019-04-05 18:13 | DRG 378 ==
LOC: ED 17:16 → ICU 19:39 → MEDTELE 04-03 16:39
PROVIDERS: ADMIT Internal Medicine; ATTEND Internal Medicine
PROC: 30233N1 Transfusion of Nonautologous Red Blood Cells into Peripheral Vein, Percutaneous Approach (ICD-10-PCS; principal; 2019-04-01)
PROC: 5A09357 Assistance with Respiratory Ventilation, Less than 24 Consecutive Hours, Continuous Positive Airway Pressure (ICD-10-PCS; 2019-04-01)
DX: K92.1 Melena (principal); I50.32 Chronic diastolic (congestive) heart failure; E66.2 Morbid (severe) obesity with alveolar hypoventilation; G93.40 Encephalopathy, unspecified; J96.12 Chronic respiratory failure with hypercapnia; E87.2 Acidosis; N17.9 Acute kidney failure, unspecified; D62 Acute posthemorrhagic anemia; Z68.41 Body mass index [BMI] 40.0-44.9, adult; T39.395A Adverse effect of other nonsteroidal anti-inflammatory drugs [NSAID], initial encounter; Y92.239 Unspecified place in hospital as the place of occurrence of the external cause; D50.9 Iron deficiency anemia, unspecified; I25.10 Atherosclerotic heart disease of native coronary artery without angina pectoris; I87.8 Other specified disorders of veins; E11.42 Type 2 diabetes mellitus with diabetic polyneuropathy; I49.1 Atrial premature depolarization; I11.0 Hypertensive heart disease with heart failure; Z66 Do not resuscitate; E11.51 Type 2 diabetes mellitus with diabetic peripheral angiopathy without gangrene; J44.9 Chronic obstructive pulmonary disease, unspecified; N40.0 Benign prostatic hyperplasia without lower urinary tract symptoms; M17.0 Bilateral primary osteoarthritis of knee; F43.10 Post-traumatic stress disorder, unspecified; F41.9 Anxiety disorder, unspecified; W18.30XA Fall on same level, unspecified, initial encounter; M79.605 Pain in left leg; S91.111A Laceration without foreign body of right great toe without damage to nail, initial encounter; E11.36 Type 2 diabetes mellitus with diabetic cataract; Z83.3 Family history of diabetes mellitus; Z88.8 Allergy status to other drugs, medicaments and biological substances; Z82.49 Family history of ischemic heart disease and other diseases of the circulatory system; I25.2 Old myocardial infarction; Z99.81 Dependence on supplemental oxygen; Z79.4 Long term (current) use of insulin; Z80.0 Family history of malignant neoplasm of digestive organs; Z87.891 Personal history of nicotine dependence; Z86.718 Personal history of other venous thrombosis and embolism
CPT/HCPCS: 36415; 71045; 80048; 80053; 81003; 81015; 82140; 82150; 82272; 82803; 83540; 83550; 83605; 83690; 83735; 83880; 84100; 84484; 85014; 85018; 85025; 85027; 85610; 85730; 86140; 86850; 86900; 86901; 86922; 87040; 87086; 87641; 93005; 93306; 94640; 94660; 99285; A9270-GY; C8929; J0696; J1756; J1940; J2250; J2405; J2704; P9040